=== PATIENT | male | born 1965 | race Caucasian/White ===

== ENCOUNTER 2022-09-05 11:43 | Inpatient (IN) | payer MEDICARE, MEDICAID, SELFPAY ==
[2022-09-05 11:51] VITALS: BP 145/106; PULSE 94; RESP 16; TEMP 36.9; O2SAT 97
--- NOTE | 2022-09-05 12:21 | PC.NURSE ---
PT STATES HE FEELS LIKE THERE IS SPY WEAR IN HIS HEAD AND THE VOICES ARE TELLING HIM TO LEAVE AND NEVER COME BACK
--- NOTE | 2022-09-05 12:33 | W.ED.PSYCHS ---
HPI - Psych General: Chief Complaint: Psychiatric Symptoms Stated Complaint: PSYCH EVAL Time Seen by Provider: 09/05/22 11:53 Source: patient History of Present Illness: 57-year-old male presents emergency room complaining of auditory visual hallucinations states he has been doing methamphetamine regularly for the last 3 weeks. He is having hallucinations and paranoid delusions that someone is installed spy where throughout his house he states he can hear the people on the floor talking and still hear voices. He has been going on for consistently for a week yesterday said he wanted to kill himself but now he states he does not have any suicidal homicidal thoughts he is not currently on any medications he was released from [facility] approximately 4 weeks ago states he began doing methamphetamine a week or 2 after he got out. No recent illness no fever sweats chills no flulike symptoms no known diagnosis of COVID. Patient states in the past he has been admitted to the neuropsychiatric unit. MD complaint: suicidal ideation and other (Auditory and visual loose Nations paranoid delusions) Onset (ago): week(s) Duration: constant Relieving factors: none Exacerbating factors: none Context: recent drug abuse Associated psychiatric symptoms: suicidal ideation, auditory hallucinations, visual hallucinations and delusions Associated symptoms: Reports auditory hallucinations, visual hallucinations, delusions, suicidal ideation and racing thoughts Review of Systems Const: Denies: fever(s), chills, body aches, change in appetite, fatigue or malaise ENMT: Denies: throat pain, ear or mastoid pain, nasal discharge or nasal congestion Card: Denies: chest pain, edema, dyspnea on exertion or orthopnea Resp: Denies: dyspnea, productive cough or non-productive cough GI: Denies: abdominal pain, nausea, vomiting, hematemesis, coffee ground emesis, diarrhea, constipation, bloating, hematochezia or melena : Denies: flank pain, dysuria, urinary frequency or urinary urgency Skin/Breast: Denies: rash or pruritus Psych: Reports: visual hallucinations, auditory hallucinations and suicidal ideation [facility] PFSH: Social History (Updated 09/05/22 @ 17:16 by Bijan Mae DO) Smoking and tobacco status: current every day smoker Substance/Drug Use: current Substance/Drug use type: Methamphetamine Physical Exam Const: ORIENTATION/CONSCIOUSNESS: Yes awake HENMT: COMMON NORMALS: normocephalic, atraumatic and hearing grossly normal bilaterally HEAD & SCALP: normocephalic and atraumatic Resp: COMMON NORMALS: normal respiratory effort, No retractions, No use of accessory muscles and clear to auscultation bilaterally AUSCULTATION: clear to auscultation bilaterally Cardio: COMMON NORMALS: regular rate, regular rhythm and No murmurs present (Cardio) RATE: regular rate RHYTHM: regular rhythm GI: COMMON NORMALS: Soft to palpation and No hepatosplenomegaly present AUSCULTATION: Yes normoactive bowel sounds PALPATION: Yes Soft to palpation, No Tenderness to palpation present (GI), No Guarding due to palpation present (GI) and Yes No hepatosplenomegaly present Extremity: COMMON NORMALS: normal to inspection, capillary refill normal, no clubbing, cyanosis or edema, no calf tenderness and no pedal edema Psych: MOOD & AFFECT: Yes anxious and Yes irritable THOUGHT PROCESS: disorganized and Flight of ideas present THOUGHT CONTENT: Yes Suicidality present and Yes delusions Skin: COMMON NORMALS: no rashes or lesions noted GENERAL SKIN EXAM: no rashes or lesions noted Course Vital Signs: Vital signs: Vital Signs Temperature 97.9 F 09/05/22 14:58 Pulse Rate 86 09/05/22 14:58 Respiratory Rate 18 09/05/22 14:58 Blood Pressure 136/91 09/05/22 14:58 Pulse Oximetry 99 09/05/22 14:58 Oxygen Delivery Me thod 09/05/22 14:54 [facility] - Psych Medical Decision Making Cussed Dr. Ayala or on-call psychiatry will admit for acute drug-induced psychosis paranoid delusions. Lab Data I reviewed the patient's lab results. 09/05/22 13:33 09/05/22 13:33 Laboratory Results WBC 10.1 10^3/uL (4.0-10.0) H 09/05/22 13:33 RBC 5.05 10^6/uL (4.1-5.3) 09/05/22 13:33 Hgb 15.0 g/dL (11.7-16.6) 09/05/22 13:33 Hct 45.2 % (42.0-52.0) 09/05/22 13:33 MCV 89.5 fl (80-94) 09/05/22 13:33 MCH 29.7 pg (28.0-34.0) 09/05/22 13:33 MCHC 33.2 g/dL (30.0-36.0) 09/05/22 13:33 RDW 12.7 % (12.1-15.1) 09/05/22 13:33 Plt Count 284 10^3/cmm (130-400) 09/05/22 13:33 MPV 10.3 fL (7.4-10.4) 09/05/22 13:33 Neut % (Auto) 76.1 % 09/05/22 13:33 Lymph % (Auto) 13.8 % 09/05/22 13:33 [place] % (Auto) 7.8 % 09/05/22 13:33 Eos % (Auto) 0.5 % 09/05/22 13:33 Baso % (Auto) 1.4 % 09/05/22 13:33 Neut # (Auto) 7.70 10^3/uL (1.8-7.7) 09/05/22 13:33 Lymph # (Auto) 1.4 10^3/uL (0.8-4.8) 09/05/22 13:33 [place] # (Auto) 0.8 10^3/uL (0.2-0.9) 09/05/22 13:33 Eos # (Auto) 0.1 10^3/uL (0.0-0.8) 09/05/22 13:33 Baso # (Auto) 0.1 10^3/uL (0.0-0.1) 09/05/22 13:33 Nucleated RBC % (auto) 0 % 09/05/22 13:33 Nucleated RBCs # 0.0 /100WBC 09/05/22 13:33 Sodium 133 mmol/L (136-145) L 09/05/22 13:33 Potassium 4.1 mmol/L (3.5-5.1) 09/05/22 13:33 Chloride 99 mmol/L (98-107) 09/05/22 13:33 Carbon Dioxide 26 mmol/L (22-29) 09/05/22 13:33 Anion Gap 12.1 (5-19) 09/05/22 13:33 BUN 9 mg/dL (6-20) 09/05/22 13:33 Creatinine 0.7 mg/dL (0.7-1.2) 09/05/22 13:33 GFR Calculation 116.7 mL/min (90-130) 09/05/22 13:33 Glucose 93 mg/dL (65-115) 09/05/22 13:33 Calculated Osmolality 274 mOsm/kg (285-295) L 09/05/22 13:33 Calcium 9.0 mg/dL (8.5-10.5) 09/05/22 13:33 Total Bilirubin 0.8 mg/dL (0.15-1.2) 09/05/22 13:33 AST 22 U/L (0-40) 09/05/22 13:33 ALT 20 U/L (0-41) 09/05/22 13:33 Alkaline Phosphatase 72 U/L (40-130) 09/05/22 13:33 Total Protein 7.2 g/dL (6.6-8.7) 09/05/22 13:33 Albumin 4.4 g/dL (3.5-5.2) 09/05/22 13:33 Globulin 2.8 g/dL (1.3-4.6) 09/05/22 13:33 Salicylates < 0.3 mg/dL (3-10) L 09/05/22 13:33 Urine Opiates Screen Negative ng/mL (Negative) 09/05/22 12:58 Acetaminophen < 5.0 ug/mL (10-30) L 09/05/22 13:33 Ur Barbiturates Screen Negative ng/mL (Negative) 09/05/22 12:58 Ur Phencyclidine Scrn Negative ng/mL (Negative) 09/05/22 12:58 Ur Amphetamines Screen Positive ng/mL (Negative) H 09/05/22 12:58 U Benzodiazepines Scrn Negative ng/mL (Negative) 09/05/22 12:58 Urine Cocaine Screen Negative ng/mL (Negative) 09/05/22 12:58 U Marijuana (THC) Screen Negative ng/mL (Negative) 09/05/22 12:58 Discharge Plan Discharge Patient Disposition: Admitted As Inpatient Admit Provider: Hammad Woods Clinical Impression: Acute psychosis, Drug-induced psychotic disorder, Suicidal ideation Condition: Stable Coding Level of Care Code ED Farmworkers for Chg Fwd Exam Problem Focused
[2022-09-05 13:50] LABS: Basophils # 0.1 10^3/uL (0.0-0.1); Basophils % 1.4 %; Eosinophils # 0.1 10^3/uL (0.0-0.8); Eosinophils % 0.5 %; Hematocrit 45.2 % (42.0-52.0); Lymphocytes # 1.4 10^3/uL (0.8-4.8); Lymphocytes % 13.8 %; Mean Corpuscular HGB Conc 33.2 g/dL (30.0-36.0); Mean Corpuscular Hemoglobin 29.7 pg (28.0-34.0); Mean Corpuscular Volume 89.5 fl (80-94); Mean Platelet Volume 10.3 fL (7.4-10.4); Monocytes # 0.8 10^3/uL (0.2-0.9); Monocytes % 7.8 %; Neutrophils % 76.1 %; Nucleated Red Blood Cells % 0 %; Platelet Count 284 10^3/cmm (130-400); Red Blood Count 5.05 10^6/uL (4.1-5.3); Red Cell Distribution Width 12.7 % (12.1-15.1); White Blood Count 10.1 10^3/uL (4.0-10.0)
[2022-09-05 13:55] VITALS: BP 148/90; PULSE 89; RESP 17; O2SAT 99
[2022-09-05 14:07] LABS: Alanine Aminotransferase 20 U/L (0-41); Albumin Level 4.4 g/dL (3.5-5.2); Alkaline Phosphatase 72 U/L (40-130); Anion Gap 12.1 (5-19); Aspartate Amino Transferase 22 U/L (0-40); Blood Urea Nitrogen 9 mg/dL (6-20); Carbon Dioxide 26 mmol/L (22-29); Chloride 99 mmol/L (98-107); Globulin 2.8 g/dL (1.3-4.6); Glomerular Filtration Rate 116.7 mL/min (90-130); Glucose 93 mg/dL (65-115); Osmolality Calculated 274 mOsm/kg (285-295); Potassium 4.1 mmol/L (3.5-5.1); Sodium 133 mmol/L (136-145); Total Bilirubin 0.8 mg/dL (0.15-1.2); Total Protein 7.2 g/dL (6.6-8.7)
[2022-09-05 14:21] LABS: Acetaminophen < 5.0 ug/mL (10-30); Salicylate < 0.3 mg/dL (3-10)
[2022-09-05 14:34] LABS: Cocaine Screen Urine Negative (Negative); PCP Screen Urine Negative (Negative); THC Screen Urine Negative (Negative)
[2022-09-05 14:35] LABS: Amphetamines Screen Urine Positive (Negative); Barbiturates Screen Urine Negative (Negative); Benzodiazepines Screen Urine Negative (Negative); Opiate Screen Urine Negative (Negative)
[2022-09-05 14:58] VITALS: BP 136/91; PULSE 86; RESP 18; TEMP 36.6; O2SAT 99
[2022-09-05 20:08] VITALS: RESP 16
--- NOTE | 2022-09-06 11:29 | PC.NURSE ---
Pt up and about this morning trying to use the telephone to contact his mom. He voiced his concern that she was in danger due to issues at home. Asked staff to call the police deptartment for a wellness check. This was done and pt was informed no one answered them. Pt then made attempts to contact the hospice care company caring for his mom. The facility received a call back from them saying the pt's mother was in respite care so she was safe, but the mom did not want to speak with Otilio at this time. The pt was informed of this and he said that made him feel so much better. He thanked staff for their efforts.
--- NOTE | 2022-09-06 13:29 | W.PM.NPUH&PS ---
Providers/Chief Complaint Admitting Physician: Hammad Woods MD Chief Complaint: PSYCH EVAL HPI NPU History of Present Illness Otilio Carpio is a 57 year old male who was admitted to the neuropsychiatric unit after presenting to the emergency room complaining of seeing and hearing things in his living situation at the [facility]. He reports that he had used methamphetamine approximately 3 days ago. He reports that he has been hearing voices in the ducts of the air vents stating that I am going to kill you . He reports that he has never had any experience like this and states that there have been cameras placed in his mothers room and there that has been observing what she has been doing and has been gathering secret and personal information on the patient as well. He denies any suicidal ideation and stated that he simply needed to get out of the situation. He states he has been in this [facility] facility with his mother for the past 45 days. Prior to that mother had been there for at least a year. He has reported a history of alcohol use but also reports a history of stimulant abuse reporting recent methamphetamine abuse for several years and states most recent use 3 days ago with alcohol as well. He denies any current depression but reports being anxious and frustrated as he reports that the nursing facility at the [facility] needs to be examined for their fraud and there invasion of privacy. The patient reports that he had been in halfway for 3 years prior to being released and he is on parole. Inpatient psychiatric history: He had reported previous inpatient treatments in [place] for depression in the past although he did not elaborate. Outpatient psychiatric history: He reports none currently. Drug and alcohol history: He had reported a history of polysubstance abuse including cocaine alcohol and currently methamphetamine. Current medications: None Allergies: Penicillin Medical history: None Surgical history: None Legal history: He reports multiple halfway stints, most recently 6 weeks ago. Social history: The patient reports that he had been residing in an assisted living facility with his elderly mother age 81 who has multiple medical problems. He reports having just been released from halfway. He reports having several children and states that he had been previously 1 time but is . He states he was born in [place] and had earned a degree in engineering having graduated from [email or web address]. He reports a history of legal problems involved in producing and delivering illicit substances. Family psychiatric history: None reported Meds NPU Home Medications Medication Instructions Recorded Confirmed Last Taken Type No Known Home Medications 12/31/22 12/31/22 Unknown History Allergies Allergy/AdvReac Type Severity Reaction Status Date / Time Penicillins Allergy Unknown Unknown Verified 09/05/22 13:53 PFSH NPU PFSH: Social History (Updated 09/05/22 @ 17:16 by Bijan Mae DO) Smoking and tobacco status: current every day smoker Substance/Drug Use: current Substance/Drug use type: Methamphetamine Mental Status Exam MSE Comments: The patient is a casually dressed thin white male who was notably intense and agitated during the interview. His speech was normal in regards to rate rhythm and prosody. The patient was alert and oriented to person place time and situation. He described his mood as anxious. His affect was intense and mood-congruent. He was somewhat guarded on interview. He did not actively appear to be responding to internal stimuli. He had clear evidence of bizarre delusions regarding people bugging him at his living situation. His insight was poor. His judgment is impaired. His impulse control appeared poor as well. His recent and remote memory appeared grossly intact. His attention span appeared adequate. Vitals/I&O/Wt Last Vital Signs Temp 97.9 F 09/05/22 14:58 Pulse 86 09/05/22 14:58 Resp 16 09/05/22 20:08 BP 136/91 09/05/22 14:58 Pulse Ox 99 09/05/22 14:58 O2 Del Method 09/05/22 14:54 Data NPU 09/05/22 13:33 09/05/22 13:33 A&P Assessment and plan (1) Acute psychosis: (2) Drug-induced psychotic disorder: Plan Is a 57-year-old white male with history of polysubstance abuse with recent use of methamphetamine admitted with active psychotic symptoms including auditory and visual hallucinations along with paranoid delusions. #1. Patient was agreeable to a trial of Abilify to target anxiety and agitation. #2. Continue every 15 minute check for safety. #3. Encourage individual group and milieu therapy. #4. recommend sober living treatment at the highest level of care to which the patient is willing to commit. Involuntary Hold Information 96 Hour Hold: 96 Hour Involuntary Admission: No Attestations NPU Medical Necessity Statement*: Inpatient hospitalization is medically necessary and the clinically appropriate intervention at this time. We will monitor medications and make changes as indicated. The patient will be in the hospital for over 2 midnights. The patient's likely length of stay is 5 to 7 days. Coding Level of Care Code New Pt Acute Jewel Oliving Machine Operator for Harshadg Fwd Patient Type New History Problem Focused Exam Problem Focused Medical Decision Making Straight Forward Diagnoses Acute psychosis F23 Drug-induced psychotic disorder F19.959
[2022-09-06 14:00] VITALS: BP 128/84; PULSE 90; RESP 18; TEMP 36.6; O2SAT 95
[2022-09-06] MEDS: ARIPiprazole 10 mg Tablet 5 MG PO (15:46)
[2022-09-06 21:06] VITALS: BP 119/77; PULSE 81; RESP 18; TEMP 36.6; O2SAT 97
[2022-09-07] MEDS: ARIPiprazole 10 mg Tablet 5 MG PO (09:02)
[2022-09-07 14:00] VITALS: BP 126/87; PULSE 87; RESP 17; TEMP 36.6; O2SAT 97
--- NOTE | 2022-09-07 17:36 | W.PM.NPUPNS ---
Subjective NPU Subjective: Patient presented today reporting that he is doing okay. He is a fairly limited historian seemingly resistant to the interview in general. We discussed the Abilify that had been initiated and reported thinking that it possibly was causing a little lethargy. We discussed increasing the dose as well as considering moving it to bedtime if he continues to have any challenges. He seemed quite a bit about discussing his addiction and the role it played in his paranoia seeming to believe that 2 issues are independent. Mental Status Exam MSE Comments: The patient is a thin call white male in hospital scrubs with limited grooming and eye contact. No abnormal movements except for mild psychomotor agitation. Semicooperative exam in mild distress. His speech was normal in regards to rate but decreased volume and prosody. Mood described as okay, affect flat and subdued. Thought process was linear. Thought content: Patient denied suicidal or homicidal ideation, there are no delusions reported but he reported paranoia and being guarded but he felt the issues initiating his paranoia were real, he denied auditory or visual hallucinations but some of his reports might fall under those labels. He did not actively appear to be responding to internal stimuli. He had clear evidence of bizarre delusions regarding people bugging him at his living situation. Attention and concentration were fair and memory was unreliable due to his psychosis but none were formally tested. His insight was poor. His judgment is impaired. His impulse control appeared poor as well. Vitals/I&O/Wt Last Vital Signs Temp 97.8 F 09/07/22 14:00 Pulse 87 09/07/22 14:00 Resp 17 09/07/22 14:00 BP 126/87 09/07/22 14:00 Pulse Ox 97 09/07/22 14:00 O2 Del Method 09/05/22 14:54 Data NPU 09/05/22 13:33 09/05/22 13:33 A&P Assessment and plan (1) Acute psychosis: (2) Drug-induced psychotic disorder: Plan Is a 57-year-old white male with history of polysubstance abuse with recent use of methamphetamine admitted with active psychotic symptoms including auditory and visual hallucinations along with paranoid delusions. 1. Patient was agreeable to a trial of Abilify to target anxiety and agitation. Continue Abilify, but increase it to 10 mg p.o. every morning with a plan to move to nightly if he is impacted by lethargy/tiredness. 2. Continue every 15 minute check for safety. 3. Encourage individual group and milieu therapy. 4. recommend sober living treatment at the highest level of care to which the patient is willing to commit. Involuntary Hold Information 96 Hour Hold: 96 Hour Involuntary Admission: No Attestations NPU Medical Necessity Statement*: Inpatient hospitalization is medically necessary and the clinically appropriate intervention at this time. We will monitor medications and make changes as indicated. The patient's likely length of stay is 4-6 days. Coding Level of Care Code Acute Wet Process Miller Head Assistant for Humaira Fwd Diagnoses Acute psychosis F23 Drug-induced psychotic disorder F19.954
[2022-09-07 22:00] VITALS: RESP 17
[2022-09-08 06:00] VITALS: RESP 18
[2022-09-08] MEDS: ARIPiprazole 10 mg Tablet PO (09:09)
[2022-09-08 14:00] VITALS: BP 138/91; PULSE 87; RESP 18; TEMP 36.8; O2SAT 97
--- NOTE | 2022-09-08 14:50 | P.NPUPN_ITS ---
Subjective NPU Subjective: Patient attended today reporting that things were better and he appeared less preoccupied. No overt conversations about things being bugged about or people listening in on him. He reports he tolerated the increase in the medication. And was pleased with the outcome. He was less focused about the medication made sleepy but more focused on the fact that he is feeling clear and less anxious. We once again talked about addiction and issues surrounding it including the likely precipitation of this thought disorder. We agreed to work with the treatment team on resources and discharge planning. Mental Status Exam MSE Comments: The patient is a thin call white male in hospital scrubs with limited grooming and improving eye contact. No abnormal movements except for mild psychomotor retardation. More cooperative exam in mild distress. His speech was normal in regards to rate but decreased volume and prosody. Mood described as better, affect flat and mildly subdued. Thought process was linear/organized. Thought content: Patient denied suicidal or homicidal ideation, there are no delusions reported and he reported less paranoia, he denied auditory or visual hallucinations. He did not actively appear to be responding to internal stimuli. Attention and concentration were fair and memory was improving, but none were formally tested. His insight, judgment and impulse control were improving. Vitals/I&O/Wt Last Vital Signs Temp 98.2 F 09/08/22 14:00 Pulse 87 09/08/22 14:00 Resp 18 09/08/22 14:00 BP 138/91 09/08/22 14:00 Pulse Ox 97 09/08/22 14:00 O2 Del Method 09/05/22 14:54 Data NPU 09/05/22 13:33 09/05/22 13:33 A&P Assessment and plan (1) Acute psychosis: (2) Drug-induced psychotic disorder: Plan Is a 57-year-old white male with history of polysubstance abuse with recent use of methamphetamine admitted with active psychotic symptoms including auditory and visual hallucinations along with paranoid delusions. 1. Continue current medication. Abilify was increased it to 10 mg p.o. every morning with a plan to move to nightly if he is impacted by lethargy/tiredness. 2. Continue every 15 minute check for safety. 3. Encourage individual group and milieu therapy. 4. recommend sober living treatment at the highest level of care to which the patient is willing to commit. Involuntary Hold Information 96 Hour Hold: 96 Hour Involuntary Admission: No Attestations NPU Medical Necessity Statement*: Inpatient hospitalization is medically necessary and the clinically appropriate intervention at this time. We will monitor medications and make changes as indicated. The patient's likely length of stay is 1-3 days. Coding Level of Care Code Acute Household Appliance Repairer for Humaira Gomez Diagnoses Acute psychosis F23 Drug-induced psychotic disorder F19.959
[2022-09-08 22:00] VITALS: RESP 16
[2022-09-09 06:00] VITALS: RESP 18
[2022-09-09] MEDS: ARIPiprazole 10 mg Tablet PO (10:53)
[2022-09-09 14:00] VITALS: BP 135/85; PULSE 85; RESP 20; TEMP 36.4; O2SAT 97
--- NOTE | 2022-09-09 17:04 | P.NPUPN_ITS ---
Subjective NPU Subjective: Patient presented today reporting being excited about being placed in the program in [place]. His p.o. is also pleased with the placement. We discussed him continuing to seem better from a standpoint of his paranoia and delusions which he agreed. He reports the medication has been helpful. He wanted to leave today if possible. He needs to get his items from home and lives in [facility] and [place]. We discussed him working with the social work team to figure out the logistics of getting his stuff and getting to [place]. Mental Status Exam MSE Comments: The patient is a thin call white male in hospital scrubs with limited grooming and improving eye contact. No abnormal movements except for mild psychomotor retardation. More cooperative exam in mild distress. His speech was normal in regards to rate but decreased volume and prosody. Mood described as okay, affect flat, mildly subdued and irritable likely secondary to not leaving today.. Thought process was linear/organized. Thought content: Patient denied suicidal or homicidal ideation, there are no delusions reported and he reported less paranoia, he denied auditory or visual hallucinations. He did not actively appear to be responding to internal stimuli. Attention and concentration were fair and memory was improving, but none were formally tested. His insight, judgment and impulse control were improving. Vitals/I&O/Wt Last Vital Signs Temp 97.5 F L 09/09/22 14:00 Pulse 85 09/09/22 14:00 Resp 20 H 09/09/22 14:00 BP 135/85 09/09/22 14:00 Pulse Ox 97 09/09/22 14:00 O2 Del Method 09/05/22 14:54 Data NPU 09/05/22 13:33 09/05/22 13:33 A&P Assessment and plan (1) Acute psychosis: (2) Drug-induced psychotic disorder: Plan Is a 57-year-old white male with history of polysubstance abuse with recent use of methamphetamine admitted with active psychotic symptoms including auditory and visual hallucinations along with paranoid delusions. 1. Continue current medication. Abilify was increased it to 10 mg p.o. every morning with a plan to move to nightly if he is impacted by lethargy/tiredness. 2. Continue every 15 minute check for safety. 3. Encourage individual group and milieu therapy. 4. recommend sober living treatment at the highest level of care to which the patient is willing to commit. Has found a program and we will arrange or assist with arrangement of transportation in the next 48 hours. Involuntary Hold Information 96 Hour Hold: 96 Hour Involuntary Admission: No Attestations NPU Medical Necessity Statement*: Inpatient hospitalization is medically necessary and the clinically appropriate intervention at this time. We will monitor medications and make changes as indicated. The patient's likely length of stay is 1-2 days. Coding Level of Care Code Acute Automation Control Integrator for Humaira Gomez Diagnoses Acute psychosis F23 Drug-induced psychotic disorder F19.959
[2022-09-09 22:00] VITALS: BP 144/89; PULSE 85; RESP 16; TEMP 36.4; O2SAT 98
[2022-09-09 22:04] VITALS: BP 144/89; PULSE 85; RESP 16; TEMP 36.4; O2SAT 98
--- NOTE | 2022-09-10 09:22 | PC.NURSE ---
Patient refusing medication this morning. He states he is leaving today and doesn't want to be tired when he leaves, but will gladly pickling machine operator his medication and take it when he leaves. Reiterated to the patient the importance of medication compliance, but patient continued to refuse.
--- NOTE | 2022-09-10 11:44 | W.PM.NPUDCS ---
Diagnoses at Discharge Discharge Diagnosis (1) Acute psychosis: Status: Acute (2) Drug-induced psychotic disorder: Status: Acute Reason for Visit Reason for Visit: PSYCH EVAL Brief History: Otilio Carpio is a 57 year old male who was admitted to the neuropsychiatric unit after presenting to the emergency room complaining of seeing and hearing things in his living situation at the [facility]. He reports that he had used methamphetamine approximately 3 days ago. He reports that he has been hearing voices in the ducts of the air vents stating that I am going to kill you . He reports that he has never had any experience like this and states that there have been cameras placed in his mothers room and there that has been observing what she has been doing and has been gathering secret and personal information on the patient as well. He denies any suicidal ideation and stated that he simply needed to get out of the situation. He states he has been in this [facility] facility with his mother for the past 45 days. Prior to that mother had been there for at least a year. He has reported a history of alcohol use but also reports a history of stimulant abuse reporting recent methamphetamine abuse for several years and states most recent use 3 days ago with alcohol as well. He denies any current depression but reports being anxious and frustrated as he reports that the nursing facility at the [facility] needs to be examined for their fraud and there invasion of privacy. The patient reports that he had been in [facility] for [facility] years prior to being released and he is on parole. Inpatient psychiatric history: He had reported previous inpatient treatments in [place] for depression in the past although he did not elaborate. Outpatient psychiatric history: He reports none currently. Drug and alcohol history: He had reported a history of polysubstance abuse including cocaine alcohol and currently methamphetamine. Current medications: None Allergies: Penicillin Medical history: None Surgical history: None Legal history: He reports multiple [facility] stints, most recently 6 weeks ago. Social history: The patient reports that he had been residing in an assisted living facility with his elderly mother age 81 who has multiple medical problems. He reports having just been released from [facility]. He reports having several children and states that he had been previously 1 time but is . He states he was born in [place] and had earned a degree in engineering having graduated from [employer]. He reports a history of legal problems involved in producing and delivering illicit substances. Family psychiatric history: None reported Hospital Course Hospital Course Patient slowly acclimated to the individual, group and milieu therapies provided.? He presented with significant psychosis and eventually was open to a trial of medication. Abilify was started and titrated to 10 mg p.o. daily with significant improvement. He worked with the treatment team to find a reasonable discharge logistics. They were able to do that. He was able to contract for safety, outside of the hospital prior to discharge.?? During the hospitalization, patient had routine laboratory studies which were within normal limits except for few outliers.? Additionally there was a general medical evaluation which was also within normal limits and revealed no new acute processes. Discharge Summary: At the time of discharge, lethality was denied and psychosis was resolving.? Mood and anxiety were well managed.? Patient endorsed a plan to avoid all drugs of abuse and follow-up with the aftercare recommendations of the treatment team.? Patient was evaluated and deemed to be absent credible lethality, and had achieved the maximum benefit from an inpatient hospitalization, so was discharged. Involuntary Hold Information 96 Hour Hold: 96 Hour Involuntary Admission: No Mental Status Exam MSE Comments: The patient is a thin call white male in hospital scrubs with improved grooming and eye contact. No abnormal movements except for mild psychomotor retardation. More cooperative exam in no acute distress. His speech was normal rate and volume with broadening prosody. Mood described as good, affect flat, but brighter. Thought process was linear/organized. Thought content: Patient denied suicidal or homicidal ideation, there are no delusions reported and he reported less paranoia, he denied auditory or visual hallucinations. He did not actively appear to be responding to internal stimuli. Attention and concentration were fair and memory was improving, but none were formally tested. His insight, judgment and impulse control were improving. Discharge Data Studies Completed and Pending: Laboratory Results WBC 10.1 10^3/uL (4.0 -10.0) H 09/05/22 13:33 RBC 5.05 10^6/uL (4.1 -5.3) 09/05/22 13:33 Hgb 15.0 g/dL (11.7-1 6.6) 09/05/22 13:33 Hct 45.2 % (42.0-52.0 ) 09/05/22 13:33 MCV 89.5 fl (80-94) 09/05/22 13:33 MCH 29.7 pg (28.0-34. 0) 09/05/22 13:33 MCHC 33.2 g/dL (30.0-3 6.0) 09/05/22 13:33 RDW 12.7 % (12.1-15.1 ) 09/05/22 13:33 Plt Count 284 10^3/cmm (130 -400) 09/05/22 13:33 MPV 10.3 fL (7.4-10.4 ) 09/05/22 13:33 Neut % (Auto) 76.1 % 09/05/22 13:33 Lymph % (Auto) 13.8 % 09/05/22 13:33 [place]lands % (Auto) 7.8 % 09/05/22 13:33 Eos % (Auto) 0.5 % 09/05/22 13:33 Baso % (Auto) 1.4 % 09/05/22 13:33 Neut # (Auto) 7.70 10^3/uL (1.8 -7.7) 09/05/22 13:33 Lymph # (Auto) 1.4 10^3/uL (0.8- 4.8) 09/05/22 13:33 Highlands # (Auto) 0.8 10^3/uL (0.2- 0.9) 09/05/22 13:33 Eos # (Auto) 0.1 10^3/uL (0.0- 0.8) 09/05/22 13:33 Baso # (Auto) 0.1 10^3/uL (0.0- 0.1) 09/05/22 13:33 Nucleated RBC % (a uto) 0 % 09/05/22 13:33 Nucleated RBCs # 0.0 /100WBC 09/05/22 13:33 Sodium 133 mmol/L (136-1 45) L 09/05/22 13:33 Potassium 4.1 mmol/L (3.5-5 .1) 09/05/22 13:33 Chloride 99 mmol/L (98-107 ) 09/05/22 13:33 Carbon Dioxide 26 mmol/L (22-29) 09/05/22 13:33 Anion Gap 12.1 (5-19) 09/05/22 13:33 BUN 9 mg/dL (6-20) 09/05/22 13:33 Creatinine 0.7 mg/dL (0.7-1. 2) 09/05/22 13:33 GFR Calculation 116.7 mL/min (90- 130) 09/05/22 13:33 Glucose 93 mg/dL (65-115) 09/05/22 13:33 Calculated Osmolal ity 274 mOsm/kg (285- 295) L 09/05/22 13:33 Calcium 9.0 mg/dL (8.5-10 .5) 09/05/22 13:33 Total Bilirubin 0.8 mg/dL (0.15-1 .2) 09/05/22 13:33 AST 22 U/L (0-40) 09/05/22 13:33 ALT 20 U/L (0-41) 09/05/22 13:33 Alkaline Phosphata se 72 U/L (40-130) 09/05/22 13:33 Total Protein 7.2 g/dL (6.6-8.7 ) 09/05/22 13:33 Albumin 4.4 g/dL (3.5-5.2 ) 09/05/22 13:33 Globulin 2.8 g/dL (1.3-4.6 ) 09/05/22 13:33 Salicylates < 0.3 mg/dL (3-10 ) L 09/05/22 13:33 Urine Opiates Scre en Negative ng/mL (N egative) 09/05/22 12:58 Acetaminophen < 5.0 ug/mL (10-3 0) L 09/05/22 13:33 Ur Barbiturates Sc reen Negative ng/mL (N egative) 09/05/22 12:58 Ur Phencyclidine S crn Negative ng/mL (N egative) 09/05/22 12:58 Ur Amphetamines Sc reen Positive ng/mL (N egative) H 09/05/22 12:58 U Benzodiazepines Scrn Negative ng/mL (N egative) 09/05/22 12:58 Urine Cocaine Scre en Negative ng/mL (N egative) 09/05/22 12:58 U Marijuana (THC) Screen Negative ng/mL (N egative) 09/05/22 12:58 Vitals: Last Vital Signs Temp 97.6 F 09/09/22 22:04 Pulse 85 09/09/22 22:04 Resp 16 09/09/22 22:04 BP 144/89 09/09/22 22:04 Pulse Ox 98 09/09/22 22:04 O2 Del Method 09/05/22 14:54 Discharge Plan Discharge Patient Disposition: Home Condition: Stable Prescriptions: New aripiprazole 10 mg Tablet 10 mg PO DAILY 30 Days Qty: 30 1RF Discharge Orders: Discharge Order (Routine); Ordered 09/10/22 Ordered By: Lobo Mcgee Referrals: [employer] [facility] [Other] [facility] [Other] [facility] [Other] (Application provided) Discharge Diet: Regular Discharge Activity: Resume usual activity Patient Instructions: Aripiprazole (By mouth), Suicide Prevention (DC), Opioid Safety Discharge Attestations NPU Time Spent in Discharge Care*: less than 30 min Specific Discharge Activities: Specific discharge activities: educating patient, discussing with patient case manager/social workers/dc planners, documenting/other paperwork and evaluating patient/reviewing data Coding Level of Care Code Acute Chg FW DC note Diagnoses Acute psychosis F23 Drug-induced psychotic disorder F19.959
[2022-09-10 11:57] VITALS: BP 144/89; PULSE 85; RESP 16; TEMP 36.4; O2SAT 98
== END 2022-09-10 13:35 | disposition home or self-care (01) | DRG 897 ==
LOC: ER 13:27 → NP 14:11
PROVIDERS: Admitting Provider Psychiatry & Neurology Psychiatry; Emergency Provider Family Medicine; Visit Provider Psychiatry & Neurology Psychiatry
DX: F15.151 Other stimulant abuse with stimulant-induced psychotic disorder with hallucinations (principal); F15.150 Other stimulant abuse with stimulant-induced psychotic disorder with delusions; F17.200 Nicotine dependence, unspecified, uncomplicated; Z65.3 Problems related to other legal circumstances
CPT/HCPCS: 80053; 80306; 80307; 85025; 97165; 99285

== ENCOUNTER 2022-10-31 13:41 | Inpatient (IN) | payer MEDICARE, MEDICAID, SELFPAY ==
[2022-10-31 13:43] VITALS: BMI 26.4
--- NOTE | 2022-10-31 13:47 | W.ED.PSYCHS ---
HPI - Psych General: Chief Complaint: Psychiatric Symptoms Stated Complaint: PSYCH EVAL Time Seen by Provider: 10/31/22 13:47 Limitations: other (Psychiatric disorder) History of Present Illness: Mr Carpio is a 57-year-old gentleman presenting to the emergency department for psychiatric concerns. He reports some bit of time of having, what I suspect are, auditory and visual hallucinations and paranoia. He reports longstanding history of being spiritual and his third eye in his pineal gland being open however is very vague as far as previous psychiatric diagnoses. He reports since he moved to [place] he was initially out of penitentiary and living with his mother. He noted seeing people and hearing words in the events. He also endorses people watching him and spying on him and trying to blackmail him. He is unsure of exactly how this happens though thinks it is through perhaps cameras in the events of smoke detectors. He thinks that there are drones that are flying around him lately. He does endorse a history of tobacco use. He endorses a history of drinking denies daily alcohol use and denies history of DT/alcohol withdrawal seizure. He denies recent other substance abuse. Intensity symptoms is moderate to severe. The patient is afraid that somebody is going to check into the hospital hiding a gun up is as to blow my brains out . No other specific changes in health, exacerbating, or alleviating factors identified. Associated symptoms: Reports delusions Review of Systems General: Reports: Other (Psychiatric disorder) [facility] PFSH: Medical History (Updated 11/14/22 @ 19:24 by Kalyan Mckeon MD) No significant past medical history Surgical History (Updated 11/14/22 @ 19:24 by Kalyan Mckeon MD) No significant past surgical history Social History Smoking and tobacco status: current every day smoker Physical Exam Const: COMMON NORMALS: alert GENERAL APPEARANCE: cooperative and well developed HENMT: COMMON NORMALS: normocephalic and atraumatic HEAD & SCALP: normocephalic and atraumatic Eye: COMMON NORMALS: conjunctivae normal CONJUNCTIVA: Yes conjunctivae normal SCLERA: sclerae normal Neck/C-Spine: COMMON NORMALS: supple GENERAL: Yes trachea midline Resp: COMMON NORMALS: normal respiratory effort EFFORT & INSPECTION: Yes able to speak in complete sentences Cardio: COMMON NORMALS: regular rate and regular rhythm RATE: regular rate RHYTHM: regular rhythm GI: COMMON NORMALS: Soft to palpation PALPATION: Yes Soft to palpation and No Tenderness to palpation present (GI) PERCUSSION: normal to percussion Extremity: GENERAL: Yes normal exam except as noted and No edema Neuro: COMMON NORMALS: moves all extremities SENSORIUM/ORIENTATION: Yes alert and No Orientation impaired Psych: ATTITUDE: Yes bizarre MOOD & AFFECT: Yes fearful THOUGHT CONTENT: Yes delusions INSIGHT: Poor insight present (Psych) JUDGEMENT: Limited judgement present (Psych) Course Vital Signs: Vital signs: Vital Signs Temperature 98.5 F 11/09/22 11:32 Pulse Rate 103 H 11/09/22 11:32 Respiratory Rate 18 11/09/22 11:32 Blood Pressure 139/87 11/09/22 11:32 Pulse Oximetry 97 11/09/22 11:32 Oxygen Delivery Me thod 11/06/22 22:00 MDM - Psych Medical Decision Making 57-year-old gentleman presenting with paranoia. He is nontoxic. Labs notable for mild leukocytosis which is nonspecific and likely not clinically pertinent, no significant metabolic abnormalities to explain symptoms. Toxic ingestions positive for mildly elevated alcohol level but not significant enough to explain psychosis. Given clinical history and physical exam there is no indication for imaging at this time. P.o. Ativan for anxiolysis attempted however patient had escalating behavior and became a threat to himself and others requiring injectable medications which had desired therapeutic effect. Serial repeat exams per protocol. Based on ED evaluation at this point there is no obvious condition that would preclude the patient from inpatient management psychiatric concerns/symptoms. Discussed with psychiatry service and patient admitted to neuropsychiatric unit. Lab Data 10/31/22 15:33 10/31/22 15:33 Discharge Plan Discharge Patient Disposition: Admitted As Inpatient Admit Provider: Lobo Mcgee Clinical Impression: Acute psychosis, Auditory hallucinations, Hallucinations, visual, Delusions, Paranoia Condition: Stable Discharge Diet: Regular Discharge Activity: Resume usual activity Coding Level of Care Code ED Vice President Digital Strategist for [employer]aira Gomez
[2022-10-31 14:19] VITALS: BP 144/83; PULSE 100; O2SAT 97
--- NOTE | 2022-10-31 14:24 | PC.NURSE ---
PT refused medication, physician notified
[2022-10-31 15:45] LABS: Basophils # 0.1 10^3/uL (0.0-0.1); Eosinophils % 0.1 %; Hematocrit 44.6 % (42.0-52.0); Hemoglobin 14.4 g/dL (11.7-16.6); Lymphocytes # 1.6 10^3/uL (0.8-4.8); Lymphocytes % 11.7 %; Mean Corpuscular HGB Conc 32.3 g/dL (30.0-36.0); Mean Corpuscular Hemoglobin 29.1 pg (28.0-34.0); Mean Corpuscular Volume 90.1 fl (80-94); Mean Platelet Volume 10.6 fL (7.4-10.4); Monocytes # 1.4 10^3/uL (0.2-0.9); Monocytes % 10.4 %; Neutrophils # 10.35 10^3/uL (1.8-7.7); Neutrophils % 76.4 %; Nucleated Red Blood Cells % 0 %; Platelet Count 267 10^3/cmm (130-400); Red Blood Count 4.95 10^6/uL (4.1-5.3); Red Cell Distribution Width 13.3 % (12.1-15.1); White Blood Count 13.6 10^3/uL (4.0-10.0)
[2022-10-31 16:11] LABS: Alanine Aminotransferase 16 U/L (0-41); Alcohol Level 18 mg/dL (0-10); Alkaline Phosphatase 89 U/L (40-130); Anion Gap 16.3 (5-19); Aspartate Amino Transferase 36 U/L (0-40); Blood Urea Nitrogen 16 mg/dL (6-20); Calcium 9.4 mg/dL (8.5-10.5); Carbon Dioxide 24 mmol/L (22-29); Chloride 100 mmol/L (98-107); Globulin 2.7 g/dL (1.3-4.6); Glucose 81 mg/dL (65-115); Osmolality Calculated 284 mOsm/kg (285-295); Potassium 3.3 mmol/L (3.5-5.1); Sodium 137 mmol/L (136-145); Thyroid Stimulating Hormone 0.65 uIU/mL (0.27-4.20); Total Bilirubin 1.1 mg/dL (0.15-1.2); Total Protein 6.7 g/dL (6.6-8.7)
[2022-10-31 16:14] LABS: Acetaminophen < 5.0 ug/mL (10-30); Salicylate < 0.3 mg/dL (3-10)
[2022-10-31] MEDS: potassium chloride ER 20 mEq Tablet 40 MEQ PO (17:04)
--- NOTE | 2022-10-31 17:25 | PC.NURSE ---
Personal belongings - $366 counted by security.
[2022-10-31 17:27] VITALS: RESP 16
[2022-10-31 17:39] VITALS: BP 138/91; PULSE 90; RESP 19; TEMP 36.7; O2SAT 98
[2022-10-31] MEDS: OLANZapine 5 mg ODT PO (18:40)
--- NOTE | 2022-10-31 18:41 | PC.NURSE ---
PRN Vice President [employer] Patient approached this RN in a panicked state and said someone was standing at his window with a gun. This RN went to the patient's room with him, where the blinds were pulled. I pulled the blinds up so we could see outside and assured the patient that no one was outside his window and that we were very far off the ground in his room where nobody could reach him. Patient then began staring at an outlet in the wall and said, I know it sounds crazy but I kind of have a third sense. I can hear them talking about me and saying I can't escape. And I think they're right. Administered 10 mg zyprexa odt. Patient had also said he hadn't slept well for 3 days so he was advised to try to take a nap because he was safe here.
[2022-10-31 20:03] VITALS: BP 122/67; PULSE 96; RESP 16; TEMP 36.6; O2SAT 98
[2022-11-01 06:00] VITALS: BP 124/79; PULSE 96; RESP 16; TEMP 36.4; O2SAT 99
[2022-11-01 14:00] VITALS: BP 130/81; PULSE 100; RESP 18; TEMP 36.8; O2SAT 93
--- NOTE | 2022-11-01 14:02 | W.PM.NPUH&PS ---
Providers/Chief Complaint Admitting Physician: Lobo Mcgee MD Chief Complaint: PSYCH EVAL HPI NPU History of Present Illness Otilio Carpio is a 57 year old male who presented to the emergency department with the following report: Chief Complaint: Psychiatric Symptoms Stated Complaint: PSYCH EVAL Time Seen by Provider: 10/31/22 13:47 History of Present Illness: Mr Carpio is a 57-year-old gentleman presenting to the emergency department for psychiatric concerns. He reports some bit of time of having, what I suspect are, auditory and visual hallucinations and paranoia. He reports longstanding history of being spiritual and his third eye in his pineal gland being open however is very vague as far as previous psychiatric diagnoses. He reports since he moved to [place] he was initially out of half-way and living with his mother. He noted seeing people and hearing words in the events. He also endorses people watching him and spying on him and trying to blackmail him. He is unsure of exactly how this happens though thinks it is through perhaps cameras in the events of smoke detectors. He thinks that there are drones that are flying around him lately. He does endorse a history of tobacco use. He endorses a history of drinking denies daily alcohol use and denies history of DT/alcohol withdrawal seizure. He denies recent other substance abuse. Intensity symptoms is moderate to severe. The patient is afraid that somebody is going to check into the hospital hiding a gun up is as to blow my brains out . No other specific changes in health, exacerbating, or alleviating factors identified. He was admitted to the neuropsychiatric unit for definitive treatment of those issues. He was a very resistant historian with very few answers to questions posed to him. And most of those answers were enmeshed in a very serious likely paranoid delusional network. He just kept repeating that they are out to get me and I am not safe anywhere. Any question was perceived as a lack of belief of his report that he was being followed and these people were appearing everywhere. Additionally challenging the situation was a clear hypersomnolence likely connected to a crash from methamphetamine. He had refused thus far to give a urine sample so there was a BAL of but his UDS was not obtained as of this interview and bringing up his history of drugs led to him saying that he was not being believed in him essentially ending the interview. An excerpt of his evaluation/discharge summary from last month is included below for historical context. Per his 09/10/2022 [facility] inpatient psychiatric discharge summary: PSYCH EVAL Brief History: Otilio Carpio is a 57 year old male who was admitted to the neuropsychiatric unit after presenting to the emergency room complaining of seeing and hearing things in his living situation at the [facility]. He reports that he had used methamphetamine approximately 3 days ago. He reports that he has been hearing voices in the ducts of the air vents stating that I am going to kill you . He reports that he has never had any experience like this and states that there have been cameras placed in his mothers room and there that has been observing what she has been doing and has been gathering secret and personal information on the patient as well. He denies any suicidal ideation and stated that he simply needed to get out of the situation. He states he has been in this [facility] facility with his mother for the past 45 days. Prior to that mother had been there for at least a year. He has reported a history of alcohol use but also reports a history of stimulant abuse reporting recent methamphetamine abuse for several years and states most recent use 3 days ago with alcohol as well. He denies any current depression but reports being anxious and frustrated as he reports that the nursing facility at the [facility] needs to be examined for their fraud and there invasion of privacy. The patient reports that he had been in [facility] for 3 years prior to being released and he is on parole. Inpatient psychiatric history: He had reported previous inpatient treatments in [place] for depression in the past although he did not elaborate. Outpatient psychiatric history: He reports none currently. Drug and alcohol history: He had reported a history of polysubstance abuse including cocaine alcohol and currently methamphetamine. Current medications: None Allergies: Penicillin Medical history: None Surgical history: None Legal history: He reports multiple [facility] stints, most recently 6 weeks ago. Social history: The patient reports that he had been residing in an assisted living facility with his elderly mother age 81 who has multiple medical problems. He reports having just been released from [facility]. He reports having several children and states that he had been previously 1 time but is . He states he was born in [place] and had earned a degree in engineering having graduated from [employer]. He reports a history of legal problems involved in producing and delivering illicit substances. Family psychiatric history: None reported Hospital Course Patient slowly acclimated to the individual, group and milieu therapies provided. He presented with significant psychosis and eventually was open to a trial of medication. Abilify was started and titrated to 10 mg p.o. daily with significant improvement. He worked with the treatment team to find a reasonable discharge logistics. They were able to do that. He was able to contract for safety, outside of the hospital prior to discharge. During the hospitalization, patient had routine laboratory studies which were within normal limits except for few outliers. Additionally there was a general medical evaluation which was also within normal limits and revealed no new acute processes. Discharge Summary: At the time of discharge, lethality was denied and psychosis was resolving. Mood and anxiety were well managed. Patient endorsed a plan to avoid all drugs of abuse and follow-up with the aftercare recommendations of the treatment team. Patient was evaluated and deemed to be absent credible lethality, and had achieved the maximum benefit from an inpatient hospitalization, so was discharged. Meds NPU Home Medications Medication Instructions Recorded Confirmed Last Taken Type aripiprazole 10 mg tablet 10 mg PO DAILY 30 days #30 tabs 09/10/22 10/31/22 Unknown Rx Allergies Allergy/AdvReac Type Severity Reaction Status Date / Time Penicillins Allergy Unknown Unknown Verified 09/05/22 13:53 PFSH NPU PFSH: Social History (Updated 09/05/22 @ 17:16 by Bijan Mae DO) Smoking and tobacco status: current every day smoker Mental Status Exam MSE Comments: The patient is a thin call white male in hospital scrubs with limited grooming and eye contact. No abnormal movements except for mild psychomotor agitation. Mostly uncooperative exam in moderate distress. His speech was limited with increased rate and decreased volume. Mood described as fine, affect paranoid. Thought process was linear. Thought content: Patient denied suicidal or homicidal ideation, there are no delusions reported but he appeared to have significant paranoia but he felt the issues initiating his paranoia were real, he appeared to be responding to internal stimuli. He had clear evidence of bizarre delusions regarding people following him. Attention, concentration and memory were impaired due to his psychosis but none were formally tested. His insight was poor. His judgment is impaired. His impulse control appeared poor as well. Vitals/I&O/Wt Last Vital Signs Temp 98.2 F 02/26/23 14:00 Pulse 100 11/01/22 14:00 Resp 18 11/01/22 14:00 BP 130/81 11/01/22 14:00 Pulse Ox 93 11/01/22 14:00 O2 Del Method 10/31/22 17:47 Weight last 48 hrs Weight 88.36 kg Weight 90.718 kg Data NPU 10/31/22 15:33 10/31/22 15:33 A&P Assessment and plan (1) Acute psychosis: (2) Drug-induced psychotic disorder: (3) Auditory hallucinations: (4) Hallucinations, visual: (5) Delusions: (6) Paranoia: (7) Alcohol use disorder: Plan Is a 57-year-old white male with history of polysubstance abuse with likely recent use of methamphetamine admitted with active psychotic symptoms including auditory and visual hallucinations along with paranoid delusions. 1. Continue current medication. We will attempt to get patient to restart Abilify. 2. Continue every 15 minute check for safety. 3. Encourage individual group and milieu therapy. 4. recommend sober living treatment at the highest level of care to which the patient is willing to commit. Involuntary Hold Information 96 Hour Hold: 96 Hour Involuntary Admission: Yes 96 Hour Hold Ending Date: 11/06/22 96 Hour Hold Ending Time: 00:01 Attestations NPU Medical Necessity Statement*: Inpatient hospitalization is medically necessary and the clinically appropriate intervention at this time. We will monitor medications and make changes as indicated. The patient will be in the hospital for over 2 midnights. The patient's likely length of stay is 5 to 7 days. 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
[2022-11-01 20:07] VITALS: BP 117/72; PULSE 89; RESP 18; TEMP 36.6; O2SAT 97
[2022-11-02 06:00] VITALS: BP 157/75; PULSE 90; RESP 16; TEMP 36.9; O2SAT 96
[2022-11-02] MEDS: bisacodyl 5 mg Tablet PO (09:48)
[2022-11-02] MEDS: OLANZapine 5 mg ODT PO (09:48)
--- NOTE | 2022-11-02 09:51 | PC.NURSE ---
PRN [employer] Application Developer Patient states this morning that he hasn't slept well because he heard people all night talking and walking in the hallway. He appears very anxious and is shaking slightly. Patient administered zyprexa 10mg odt.
[2022-11-02 14:00] VITALS: BP 138/72; PULSE 90; RESP 17; TEMP 37.1; O2SAT 96
--- NOTE | 2022-11-02 16:07 | P.NPUPN_ITS ---
Subjective NPU Subjective: Patient presented today unchanged from yesterday. Any questions about what is going on lead to very impaction statements about people following him and how it is real and has nothing to do with any drug use. He still has not produced a urine for evaluation of methamphetamine use given his last visit last month. He reported still considering restarting the Abilify. Mental Status Exam MSE Comments: The patient is a thin call white male in hospital scrubs with limited grooming and eye contact. No abnormal movements except for mild psychomotor agitation. Mostly uncooperative exam in moderate distress. His speech was limited with increased rate and decreased volume. Mood described as there is nothing wrong with me, affect paranoid. Thought process was linear. Thought content: Patient denied suicidal or homicidal ideation, there are no delusions reported but he appeared to have significant paranoia but he felt the issues initiating his paranoia were real, he appeared to be responding to internal stimuli. He had clear evidence of bizarre delusions regarding people following him. Attention, concentration and memory were impaired due to his psychosis but none were formally tested. His insight was poor. His judgment is impaired. His impulse control appeared poor as well. Vitals/I&O/Wt Last Vital Signs Temp 98.4 F 11/02/22 06:00 Pulse 90 11/02/22 06:00 Resp 16 11/02/22 06:00 BP 157/75 11/02/22 06:00 Pulse Ox 96 11/02/22 06:00 O2 Del Method 10/31/22 17:47 Weight last 48 hrs Weight 88.36 kg Data NPU 10/31/22 15:33 10/31/22 15:33 A&P Assessment and plan (1) Acute psychosis: (2) Drug-induced psychotic disorder: (3) Auditory hallucinations: (4) Hallucinations, visual: (5) Delusions: (6) Paranoia: (7) Alcohol use disorder: Plan Is a 57-year-old white male with history of polysubstance abuse with likely r ecent use of methamphetamine admitted with active psychotic symptoms including auditory and visual hallucinations along with paranoid delusions. 1. Continue current medication. We will attempt to get patient to restart Abilify 10 mg p.o. daily. 2. Continue every 15 minute check for safety. 3. Encourage individual group and milieu therapy. 4. recommend sober living treatment at the highest level of care to which the patient is willing to commit. Involuntary Hold Information 96 Hour Hold: 96 Hour Involuntary Admission: Yes 96 Hour Hold Ending Date: 11/06/22 96 Hour Hold Ending Time: 00:01 Attestations NPU Medical Necessity Statement*: Inpatient hospitalization is medically necessary and the clinically appropriate intervention at this time. We will monitor medications and make changes as indicated. The patient's likely length of stay is 4 to 6 days. Coding Level of Care Code Acute Code for [facility] Fwd Diagnoses Acute psychosis F23 Drug-induced psychotic disorder F19.959 Auditory hallucinations R44.0 Hallucinations, visual R44.1 Delusions F22 Paranoia F22 Alcohol use disorder F10.90
[2022-11-02 20:14] VITALS: BP 132/83; PULSE 90; RESP 16; TEMP 36.9; O2SAT 96
[2022-11-03 06:00] VITALS: BP 158/89; PULSE 84; RESP 18; TEMP 36.9; O2SAT 94
[2022-11-03] MEDS: ARIPiprazole 10 mg Tablet PO (09:13)
--- NOTE | 2022-11-03 11:02 | P.NPUPN_ITS ---
Subjective NPU Subjective: Patient presented today reporting that he was doing better. For the first time in his hospitalization he actually said some things that were likely rational and not completely founded on paranoid delusions. He still had a clear presence of delusional thinking and still expressed paranoia in his language but was able to start talking about making a mistake of starting to drink as well as using again which led to him getting kicked out of where he was living etc. He continues to identify that the thoughts seem real but has a slight ability to consider an alternative narrative. We discussed the fact that the reason why he is thinking more clearly is very likely due to him starting the Abilify. As well as him being away from the methamphetamine. Of note he still has not given a urine drug screen. Mental Status Exam MSE Comments: The patient is a thin call white male in hospital scrubs with limited grooming and eye contact. No abnormal movements except for mild psychomotor agitation. More cooperative with exam in mild to moderate distress. His speech was more spontaneous with increased rate and more normal volume. Mood described as feeling okay and need to get out of here, affect paranoid. Thought process was linear and organized. Thought content: Patient denied suicidal or homicidal ideation, there are no delusions reported but he appeared to have significant paranoia but he felt the issues initiating his paranoia were real, he appeared to be responding to internal stimuli. He had clear evidence of bizarre delusions regarding people following him. Attention, concentration and memory were impaired due to his psychosis, but improving but none were formally tested. His insight was poor. His judgment is impaired. His impulse control appeared poor as well. Vitals/I&O/Wt Last Vital Signs Temp 98.4 F 11/03/22 06:00 Pulse 84 11/03/22 06:00 Resp 18 11/03/22 06:00 BP 158/89 11/03/22 06:00 Pulse Ox 94 11/03/22 06:00 O2 Del Method 10/31/22 17:47 Data NPU 10/31/22 15:33 10/31/22 15:33 A&P Assessment and plan (1) Acute psychosis: (2) Drug-induced psychotic disorder: (3) Auditory hallucinations: (4) Hallucinations, visual: (5) Delusions: (6) Paranoia: (7) Alcohol use disorder: Plan Is a 57-year-old white male with history of polysubstance abuse with likely recent use of methamphetamine admitted with active psychotic symptoms including auditory and visual hallucinations along with paranoid delusions. 1. Continue current medication. Restarted Abilify 10 mg p.o. daily. 2. Continue every 15 minute check for safety. 3. Encourage individual group and milieu therapy. 4. recommend sober living treatment at the highest level of care to which the patient is willing to commit. Involuntary Hold Information 96 Hour Hold: 96 Hour Involuntary Admission: Yes 96 Hour Hold Ending Date: 11/06/22 96 Hour Hold Ending Time: 00:01 Attestations NPU Medical Necessity Statement*: Inpatient hospitalization is medically necessary and the clinically appropriate intervention at this time. We will monitor medications and make changes as indicated. The patient's likely length of stay is 3-5 days. 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
[2022-11-03 14:00] VITALS: BP 155/84; PULSE 90; RESP 17; TEMP 36.7; O2SAT 91
[2022-11-03] MEDS: OLANZapine 5 mg ODT PO (18:38)
[2022-11-03 20:15] VITALS: BP 139/87; PULSE 80; RESP 16; TEMP 36.7; O2SAT 97
[2022-11-04 06:00] VITALS: BP 156/91; PULSE 87; RESP 18; TEMP 36.6; O2SAT 96
[2022-11-04] MEDS: ARIPiprazole 10 mg Tablet PO (08:44)
--- NOTE | 2022-11-04 12:13 | W.PM.NPUPNS ---
Subjective NPU Subjective: Patient presented today having some improvement in his overall presentation with decreases in [id number] paranoia but continued paranoia nonetheless. He reports that he feels maybe the Abilify is making him a little sleepy and we talked about the possibility of giving him his dose at night starting tomorrow. He continues to lobby for discharge we discussed the fact that we would need to see his paranoia decreased significantly prior to discharge. Mental Status Exam MSE Comments: The patient is a thin call white male in hospital scrubs with limited grooming and eye contact. No abnormal movements except for mild psychomotor agitation. More cooperative with exam in mild to moderate distress. His speech was more spontaneous with increased rate and more normal volume. Mood described as feeling okay and need to get out of here, affect paranoid. Thought process was linear and organized. Thought content: Patient denied suicidal or homicidal ideation, there are no delusions reported but he appeared to have significant paranoia but he felt the issues initiating his paranoia were real, he appeared to be responding to internal stimuli. He had clear evidence of bizarre delusions regarding people following him. Attention, concentration and memory were impaired due to his psychosis, but improving but none were formally tested. His insight was poor. His judgment is impaired. His impulse control appeared poor as well. Vitals/I&O/Wt Last Vital Signs Temp 97.9 F 11/04/22 06:00 Pulse 87 11/04/22 06:00 Resp 18 11/04/22 06:00 BP 156/91 11/04/22 06:00 Pulse Ox 96 11/04/22 06:00 O2 Del Method 10/31/22 17:47 Data NPU 10/31/22 15:33 10/31/22 15:33 A&P Assessment and plan (1) Acute psychosis: (2) Drug-induced psychotic disorder: (3) Auditory hallucinations: (4) Hallucinations, visual: (5) Delusions: (6) Paranoia: (7) Alcohol use disorder: Plan Is a 57-year-old white male with history of polysubstance abuse with likely recent use of methamphetamine admitted with active psychotic symptoms including auditory and visual hallucinations along with paranoid delusions. 1. Continue current medication. Restarted Abilify 10 mg p.o. daily. Switch to bedtime dosing and consider increasing to 20 mg. 2. Continue every 15 minute check for safety. 3. Encourage individual group and milieu therapy. 4. recommend sober living treatment at the highest level of care to which the patient is willing to commit. Involuntary Hold Information 96 Hour Hold: 96 Hour Involuntary Admission: Yes 96 Hour Hold Ending Date: 11/06/22 96 Hour Hold Ending Time: 00:01 Attestations NPU Medical Necessity Statement*: Inpatient hospitalization is medically necessary and the clinically appropriate intervention at this time. We will monitor medications and make changes as indicated. The patient's likely length of stay is 2-4 days. 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
[2022-11-04 14:00] VITALS: BP 153/92; PULSE 83; RESP 18; TEMP 36.7; O2SAT 96
[2022-11-04] MEDS: hyDROXYzine 25 mg Capsule 50 MG PO (19:11)
[2022-11-04 22:00] VITALS: BP 147/84; PULSE 83; RESP 15; TEMP 36.6; O2SAT 95
[2022-11-05 06:00] VITALS: BP 153/84; PULSE 84; RESP 18; TEMP 36.6; O2SAT 95
[2022-11-05 14:00] VITALS: BP 135/101; PULSE 120; RESP 18; TEMP 36.6; O2SAT 94
--- NOTE | 2022-11-05 16:28 | P.NPUPN_ITS ---
Subjective NPU Subjective: Patient presented today reporting that he is feeling better. He reported that he needs to leave the hospital today or tomorrow based on all these things I have to do. But when questioned about those things he never seemed to come up with things of dire importance so it seemed that he just wants to leave the hospital. We agreed we would talk about this issue again tomorrow. We discussed the fact that we would be likely filing for a 21-day hold just in case we need to keep him given his level of paranoia. He is denying paranoia today but still appears to have some paranoid behaviors. Mental Status Exam MSE Comments: The patient is a thin call white male in hospital scrubs with limited grooming and eye contact. No abnormal movements except for mild psychomotor agitation. More cooperative with exam in mild to moderate distress. His speech was more spontaneous with increased rate and more normal volume. Mood described as I am fine I am ready to go, affect less paranoid. Thought process was linear and organized. Thought content: Patient denied suicidal or homicidal ideation, there are no delusions reported but he appeared to have significant paranoia but he felt the issues initiating his paranoia were real, he appeared to be responding to internal stimuli. He had clear evidence of bizarre delusions regarding people following him. Attention, concentration and memory were impaired due to his psychosis, but improving but none were formally tested. His insight was poor. His judgment is impaired. His impulse control appeared poor as well. Vitals/I&O/Wt Last Vital Signs Temp 97.8 F 11/05/22 14:00 Pulse 120 H 11/05/22 14:00 Resp 18 11/05/22 14:00 BP 135/101 11/05/22 14:00 Pulse Ox 94 11/05/22 14:00 O2 Del Method 11/05/22 06:00 Data NPU 10/31/22 15:33 10/31/22 15:33 A&P Assessment and plan (1) Acute psychosis: (2) Drug-induced psychotic disorder: (3) Auditory hallucinations: (4) Hallucinations, visual: (5) Delusions: (6) Paranoia: (7) Alcohol use disorder: Plan Is a 57-year-old white male with history of polysubstance abuse with likely recent use of methamphetamine admitted with active psychotic symptoms including auditory and visual hallucinations along with paranoid delusions. 1. Continue current medication. Restarted Abilify 10 mg p.o. daily. Switch to bedtime dosing and increase to 20 mg p.o. 2. Continue every 15 minute check for safety. 3. Encourage individual group and milieu therapy. 4. recommend sober living treatment at the highest level of care to which the patient is willing to commit. 5. Filed for 21-day hold. Involuntary Hold Information 96 Hour Hold: 96 Hour Involuntary Admission: Yes 96 Hour Hold Ending Date: 11/06/22 96 Hour Hold Ending Time: 00:01 Attestations NPU Medical Necessity Statement*: Inpatient hospitalization is medically necessary and the clinically appropriate intervention at this time. We will monitor medications and make changes as indicated. The patient's likely length of stay is 2-4 days. 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
[2022-11-05] MEDS: OLANZapine 5 mg ODT PO (18:54)
[2022-11-05] MEDS: nicotine 2 mg Gum BUCCAL (20:20)
[2022-11-05] MEDS: ARIPiprazole 10 mg Tablet 20 MG PO (21:15)
[2022-11-05 22:00] VITALS: BP 152/97; PULSE 84; RESP 16; TEMP 36.4; O2SAT 97
[2022-11-06 06:00] VITALS: BP 123/83; PULSE 80; RESP 16; TEMP 36.9; O2SAT 94
--- NOTE | 2022-11-06 13:19 | W.PM.NPUPNS ---
Subjective NPU Subjective: Patient presented today initially fairly upset about the 21-day hold. We had a lengthy discussion with her and I explained to him that it is my belief that he is delusional in this thought about people out to get him. We discussed why my assessment is that way and the fact that it is certainly possible that he is released prior to his hearing at 2:45 p.m. on Wednesday afternoon. He continues to take his medication and is tolerating the increase in dose and change to bedtime. He denies any new issues other than his resolving paranoia. Mental Status Exam MSE Comments: The patient is a thin call white male in hospital scrubs with limited grooming and eye contact. No abnormal movements except for mild psychomotor agitation. More cooperative with exam in mild to moderate distress. His speech was more spontaneous with increased rate and more normal volume. Mood described as I am fine I am ready to go, affect less paranoid. Thought process was linear and organized. Thought content: Patient denied suicidal or homicidal ideation, there are no delusions reported but he continued to have notable paranoia but he felt the issues initiating his paranoia were real, he appeared to be responding to internal stimuli. He had clear evidence of bizarre delusions regarding people following him. Attention, concentration and memory were impaired due to his psychosis, but improving but none were formally tested. His insight was poor. His judgment is impaired. His impulse control appeared poor as well. Vitals/I&O/Wt Last Vital Signs Temp 98.5 F 11/06/22 06:00 Pulse 80 11/06/22 06:00 Resp 16 11/06/22 06:00 BP 123/83 11/06/22 06:00 Pulse Ox 94 11/06/22 06:00 O2 Del Method 11/06/22 06:00 Data NPU 10/31/22 15:33 10/31/22 15:33 A&P Assessment and plan (1) Acute psychosis: (2) Drug-induced psychotic disorder: (3) Auditory hallucinations: (4) Hallucinations, visual: (5) Delusions: (6) Paranoia: (7) Alcohol use disorder: Plan Is a 57-year-old white male with history of polysubstance abuse with likely recent use of methamphetamine admitted with active psychotic symptoms including auditory and visual hallucinations along with paranoid delusions. 1. Continue current medication. Restarted Abilify 10 mg p.o. daily. Switch to bedtime dosing and increased to 20 mg p.o. 2. Continue every 15 minute check for safety. 3. Encourage individual group and milieu therapy. 4. recommend sober living treatment at the highest level of care to which the patient is willing to commit. 5. Filed for 21-day hold. Involuntary Hold Information 96 Hour Hold: 96 Hour Involuntary Admission: Yes 96 Hour Hold Ending Date: 11/06/22 96 Hour Hold Ending Time: 00:01 Attestations NPU Medical Necessity Statement*: Inpatient hospitalization is medically necessary and the clinically appropriate intervention at this time. We will monitor medications and make changes as indicated. The patient's likely length of stay is 2-4 days. 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
[2022-11-06 14:00] VITALS: BP 116/76; PULSE 99; RESP 20; TEMP 36.5; O2SAT 97
[2022-11-06] MEDS: hyDROXYzine 25 mg Capsule 50 MG PO (18:08)
[2022-11-06] MEDS: nicotine 2 mg Gum BUCCAL ×2 (18:08→20:53)
[2022-11-06] MEDS: ARIPiprazole 10 mg Tablet 20 MG PO (20:53)
[2022-11-06] MEDS: OLANZapine 5 mg ODT PO (20:53)
[2022-11-06 22:00] VITALS: BP 143/80; PULSE 90; RESP 18; TEMP 36.8; O2SAT 96
[2022-11-07 06:00] VITALS: RESP 18
--- NOTE | 2022-11-07 13:45 | W.PM.NPUPNS ---
Subjective NPU Subjective: Patient presented today continuing to proceed more that his behaviors at admission represented paranoia and not real danger. He reports that he is tolerating the Abilify without issue. And reports only mild sleepiness. We continued to discuss the possibility of discharge prior to the hearing. He denied any new or significant issues. Mental Status Exam MSE Comments: The patient is a thin call white male in hospital scrubs with limited grooming and eye contact. No abnormal movements except for mild psychomotor agitation. More cooperative with exam in mild to moderate distress. His speech was more spontaneous with increased rate and more normal volume. Mood described as I am feeling better, affect less paranoid. Thought process was linear and organized. Thought content: Patient denied suicidal or homicidal ideation, there are no delusions reported but he continued to have notable paranoia but he felt the issues initiating his paranoia were real, he appeared to be responding to internal stimuli. He had clear evidence of bizarre delusions regarding people following him. Attention, concentration and memory were impaired due to his psychosis, but improving but none were formally tested. His insight was poor. His judgment is impaired. His impulse control appeared poor as well. Vitals/I&O/Wt Last Vital Signs Temp 98.2 F 11/06/22 22:00 Pulse 90 11/06/22 22:00 Resp 18 11/07/22 06:00 BP 143/80 11/06/22 22:00 Pulse Ox 96 11/06/22 22:00 O2 Del Method 11/06/22 22:00 Data NPU 10/31/22 15:33 10/31/22 15:33 A&P Assessment and plan (1) Acute psychosis: (2) Drug-induced psychotic disorder: (3) Auditory hallucinations: (4) Hallucinations, visual: (5) Delusions: (6) Paranoia: (7) Alcohol use disorder: Plan Is a 57-year-old white male with history of polysubstance abuse with likely recent use of methamphetamine admitted with active psychotic symptoms including auditory and visual hallucinations along with paranoid delusions. 1. Continue current medication. Restarted Abilify 10 mg p.o. daily. Switched to bedtime dosing and increased to 20 mg p.o. 2. Continue every 15 minute check for safety. 3. Encourage individual group and milieu therapy. 4. recommend sober living treatment at the highest level of care to which the patient is willing to commit. 5. Filed for 21-day hold. Involuntary Hold Information 96 Hour Hold: 96 Hour Involuntary Admission: Yes 96 Hour Hold Ending Date: 11/06/22 96 Hour Hold Ending Time: 00:01 Attestations NPU Medical Necessity Statement*: Inpatient hospitalization is medically necessary and the clinically appropriate intervention at this time. We will monitor medications and make changes as indicated. The patient's likely length of stay is 2-4 days. 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
[2022-11-07 14:00] VITALS: BP 142/87; PULSE 101; RESP 17; TEMP 36.6; O2SAT 94
[2022-11-07] MEDS: nicotine 2 mg Gum BUCCAL ×3 (17:03→21:06)
[2022-11-07 20:26] VITALS: BP 147/92; PULSE 106; RESP 18; TEMP 36.7; O2SAT 96
[2022-11-07] MEDS: ARIPiprazole 10 mg Tablet 20 MG PO (20:50)
[2022-11-07] MEDS: OLANZapine 5 mg ODT PO (20:51)
[2022-11-08 05:54] VITALS: BP 143/80; PULSE 79; RESP 16; TEMP 36.6; O2SAT 98
[2022-11-08] MEDS: nicotine 2 mg Gum BUCCAL ×5 (11:31→22:25)
[2022-11-08 13:40] VITALS: BP 159/99; PULSE 104; RESP 18; TEMP 36.7; O2SAT 96
--- NOTE | 2022-11-08 14:20 | P.NPUPN_ITS ---
Subjective NPU Subjective: Patient presented today continuing to have slow improvement in regards to his paranoia. He continues to take his medication as prescribed and is hopeful for possible discharge tomorrow. We discussed the fact that we will do treatment team in the morning and look at his discharge plans and her safety and his functioning to determine whether we should be going forward with a hearing. He denied any new or pressing issues. Mental Status Exam MSE Comments: The patient is a thin call white male in hospital scrubs with limited grooming and eye contact. No abnormal movements except for mild psych omotor agitation. More cooperative with exam in mild distress. His speech was more spontaneous with more normal rate and volume. Mood described as better, affect less paranoid. Thought process was linear and organized. Thought content: Patient denied suicidal or homicidal ideation, there are no delusions reported but he continued to have notable paranoia but he felt the issues initiating his paranoia were real, he appeared to be responding to internal stimuli. He had clear evidence of bizarre delusions regarding people following him. Attention, concentration and memory were impaired due to his psychosis, but improving but none were formally tested. His insight and judgment are improv ing and his impulse control appeared limited but improving. Vitals/I&O/Wt Last Vital Signs Temp 98.1 F 11/08/22 13:40 Pulse 104 H 11/08/22 13:40 Resp 18 11/08/22 13:40 BP 159/99 11/08/22 13:40 Pulse Ox 96 11/08/22 13:40 O2 Del Method 11/06/22 22:00 Weight last 48 hrs Weight 89.902 kg Data NPU 10/31/22 15:33 10/31/22 15:33 A&P Assessment and plan (1) Acute psychosis: (2) Drug-induced psychotic disorder: (3) Auditory hallucinations: (4) Hallucinations, visual: (5) Delusions: (6) Paranoia: (7) Alcohol use disorder: Plan Is a 57-year-old white male with history of polysubstance abuse with likely recent use of methamphetamine admitted with active psychotic symptoms including auditory and visual hallucinations along with paranoid delusions. 1. Continue current medication. Restarted Abilify 10 mg p.o. daily. Switched to bedtime dosing and increased to 20 mg p.o. 2. Continue every 15 minute check for safety. 3. Encourage individual group and milieu therapy. 4. recommend sober living treatment at the highest level of care to which the patient is willing to commit. 5. Filed for 21-day hold. Involuntary Hold Information 96 Hour Hold: 96 Hour Involuntary Admission: Yes 96 Hour Hold Ending Date: 11/06/22 96 Hour Hold Ending Time: 00:01 Attestations NPU Medical Necessity Statement*: Inpatient hospitalization is medically necessary and the clinically appropriate intervention at this time. We will monitor medications and make changes as indicated. The patient's likely length of stay is 1-3 days. Coding Level of Care Code Acute Code for [facility] Fwd Diagnoses Acute psychosis F23 Drug-induced psychotic disorder F19.959 Auditory hallucinations R44.0 Hallucinations, visual R44.1 Delusions F22 Paranoia F22 Alcohol use disorder F10.90
[2022-11-08 19:43] VITALS: BP 139/87; PULSE 103; RESP 18; TEMP 36.9; O2SAT 97
[2022-11-08] MEDS: calcium carbonate 500 mg Chew Tablet 1000 MG PO (20:25)
[2022-11-08] MEDS: ARIPiprazole 10 mg Tablet 20 MG PO (20:28)
[2022-11-09 06:00] VITALS: RESP 18
--- NOTE | 2022-11-09 11:20 | DCPLANNER ---
IMM completed 11/09/20 @ 116. Pt was given a copy of rights and stated he understood his rights.
--- NOTE | 2022-11-09 11:21 | W.PM.NPUDCS ---
Diagnoses at Discharge Discharge Diagnosis (1) Acute psychosis: Status: Acute (2) Drug-induced psychotic disorder: Status: Acute (3) Auditory hallucinations: Status: Acute (4) Hallucinations, visual: Status: Acute (5) Delusions: Status: Acute (6) Paranoia: Status: Acute (7) Alcohol use disorder: Status: Acute Reason for Visit Reason for Visit: PSYCH EVAL Brief History: History of Present Illness Otilio Carpio is a 57 year old male who presented to the emergency department with the following report: Chief Complaint: Psychiatric Symptoms Stated Complaint: PSYCH EVAL Time Seen by Provider: 10/31/22 13:47 History of Present Illness: Mr Carpio is a 57-year-old gentleman presenting to the emergency department for psychiatric concerns. He reports some bit of time of having, what I suspect are, auditory and visual hallucinations and paranoia. He reports longstanding history of being spiritual and his third eye in his pineal gland being open however is very vague as far as previous psychiatric diagnoses. He reports since he moved to [place] he was initially out of halfway and living with his mother. He noted seeing people and hearing words in the events. He also endorses people watching him and spying on him and trying to blackmail him. He is unsure of exactly how this happens though thinks it is through perhaps cameras in the events of smoke detectors. He thinks that there are drones that are flying around him lately. He does endorse a history of tobacco use. He endorses a history of drinking denies daily alcohol use and denies history of DT/alcohol withdrawal seizure. He denies recent other substance abuse. Intensity symptoms is moderate to severe. The patient is afraid that somebody is going to check into the hospital hiding a gun up is as to blow my brains out . No other specific changes in health, exacerbating, or alleviating factors identified. He was admitted to the neuropsychiatric unit for definitive treatment of those issues. He was a very resistant historian with very few answers to questions posed to him. And most of those answers were enmeshed in a very serious likely paranoid delusional network. He just kept repeating that they are out to get me and I am not safe anywhere. Any question was perceived as a lack of belief of his report that he was being followed and these people were appearing everywhere. Additionally challenging the situation was a clear hypersomnolence likely connected to a crash from methamphetamine. He had refused thus far to give a urine sample so there was a BAL of but his UDS was not obtained as of this interview and bringing up his history of drugs led to him saying that he was not being believed in him essentially ending the interview. An excerpt of his evaluation/discharge summary from last month is included below for historical context. Per his 09/10/2022 [facility] inpatient psychiatric discharge summary: PSYCH EVAL Brief History: Otilio Carpio is a 57 year old male who was admitted to the neuropsychiatric unit after presenting to the emergency room complaining of seeing and hearing things in his living situation at the [facility]. He reports that he had used methamphetamine approximately 3 days ago. He reports that he has been hearing voices in the ducts of the air vents stating that I am going to kill you . He reports that he has never had any experience like this and states that there have been cameras placed in his mothers room and there that has been observing what she has been doing and has been gathering secret and personal information on the patient as well. He denies any suicidal ideation and stated that he simply needed to get out of the situation. He states he has been in this [facility] facility with his mother for the past 45 days. Prior to that mother had been there for at least a year. He has reported a history of alcohol use but also reports a history of stimulant abuse reporting recent methamphetamine abuse for several years and states most recent use 3 days ago with alcohol as well. He denies any current depression but reports being anxious and frustrated as he reports that the nursing facility at the [facility] needs to be examined for their fraud and there invasion of privacy. The patient reports that he had been in jail for 3 years prior to being released and he is on parole. Inpatient psychiatric history: He had reported previous inpatient treatments in [place] for depression in the past although he did not elaborate. Outpatient psychiatric history: He reports none currently. Drug and alcohol history: He had reported a history of polysubstance abuse including cocaine alcohol and currently methamphetamine. Current medications: None Allergies: Penicillin Medical history: None Surgical history: None Legal history: He reports multiple jail stints, most recently 6 weeks ago. Social history: The patient reports that he had been residing in an assisted living facility with his elderly mother age 81 who has multiple medical problems. He reports having just been released from jail. He reports having several children and states that he had been previously 1 time but is . He states he was born in [place] and had earned a degree in engineering having graduated from [employer]. He reports a history of legal problems involved in producing and delivering illicit substances. Family psychiatric history: None reported Hospital Course Patient slowly acclimated to the individual, group and milieu therapies provided. He presented with significant psychosis and eventually was open to a trial of medication. Abilify was started and titrated to 10 mg p.o. daily with significant improvement. He worked with the treatment team to find a reasonable discharge logistics. They were able to do that. He was able to contract for safety, outside of the hospital prior to discharge. During the hospitalization, patient had routine laboratory studies which were within normal limits except for few outliers. Additionally there was a general medical evaluation which was also within normal limits and revealed no new acute processes. Discharge Summary: At the time of discharge, lethality was denied and psychosis was resolving. Mood and anxiety were well managed. Patient endorsed a plan to avoid all drugs of abuse and follow-up with the aftercare recommendations of the treatment team. Patient was evaluated and deemed to be absent credible lethality, and had achieved the maximum benefit from an inpatient hospitalization, so was discharged. Hospital Course Hospital Course He slowly acclimated to the individual, group and milieu therapies provided. He presented frankly psychotic with significant paranoia that he is being chased by imaginary people. He initially was refusing medication but ultimately let us restart his Abilify with very positive effects. His paranoia started to subside and eventually he was able to begin to question whether the paranoia was authentic or represented a sequela of his drug use. He continues to be resistant to inpatient treatment but did accept referrals to outpatient services. Not having success with low-dose Zoloft. Ultimately he was continuum propranolol and Abilify increased to 20 mg p.o. nightly. He had significant improvement during the stay and worked with the social work team to get connected with outpatient resources. He was able to contract for safety, outside of the hospital prior to discharge. During the hospitalization he had routine laboratory studies which were within normal limits except for few outliers.? Additionally had a general medical evaluation which was also within normal limits and revealed no new acute processes. Discharge Summary At the time of discharge, he endorsed being absent lethality and psychosis.? His mood and anxiety were well managed.? He endorsed a plan to avoid any drugs of abuse and follow-up with services outside of the hospital per the treatment team recommendations.? He was evaluated and deemed absent credible lethality and had received the maximum benefit from an inpatient hospitalization, so he was discharged. Involuntary Hold Information 96 Hour Hold: 96 Hour Involuntary Admission: Yes 96 Hour Hold Ending Date: 11/06/22 96 Hour Hold Ending Time: 00:01 Mental Status Exam MSE Comments: The patient is a thin call white male in hospital scrubs with limited grooming and eye contact. No abnormal movements except for mild psychomotor agitation. More cooperative with exam in mild distress. His speech was more spontaneous with more normal rate and volume. Mood described as better, affect less paranoid. Thought process was linear and organized. Thought content: Patient denied suicidal or homicidal ideation, there are no delusions reported and he had a significant decrease in his paranoia, he did not appear to be attending to internal stimuli. He denied auditory or visual hallucinations. Attention, concentration and memory were improving but none were formally tested. His insight and judgment are improving and his impulse control appeared limited but improving. Discharge Data Studies Completed and Pending: Laboratory Results WBC 13.6 10^3/uL (4.0 -10.0) H 10/31/22 15:33 RBC 4.95 10^6/uL (4.1 -5.3) 10/31/22 15:33 Hgb 14.4 g/dL (11.7-1 6.6) 10/31/22 15:33 Hct 44.6 % (42.0-52.0 ) 10/31/22 15:33 MCV 90.1 fl (80-94) 10/31/22 15:33 MCH 29.1 pg (28.0-34. 0) 10/31/22 15:33 MCHC 32.3 g/dL (30.0-3 6.0) 10/31/22 15:33 RDW 13.3 % (12.1-15.1 ) 10/31/22 15:33 Plt Count 267 10^3/cmm (130 -400) 10/31/22 15:33 MPV 10.6 fL (7.4-10.4 ) H 10/31/22 15:33 Neut % (Auto) 76.4 % 10/31/22 15:33 Lymph % (Auto) 11.7 % 10/31/22 15:33 [place] % (Auto) 10.4 % 10/31/22 15:33 Eos % (Auto) 0.1 % 10/31/22 15:33 Baso % (Auto) 1.0 % 10/31/22 15:33 Neut # (Auto) 10.35 10^3/uL (1. 8-7.7) H 10/31/22 15:33 Lymph # (Auto) 1.6 10^3/uL (0.8- 4.8) 10/31/22 15:33 [place] # (Auto) 1.4 10^3/uL (0.2- 0.9) H 10/31/22 15:33 Eos # (Auto) 0.0 10^3/uL (0.0- 0.8) 10/31/22 15:33 Baso # (Auto) 0.1 10^3/uL (0.0- 0.1) 10/31/22 15:33 Nucleated RBC % (a uto) 0 % 10/31/22 15:33 Nucleated RBCs # 0.0 /100WBC 10/31/22 15:33 Sodium 137 mmol/L (136-1 45) 10/31/22 15:33 Potassium 3.3 mmol/L (3.5-5 .1) L 10/31/22 15:33 Chloride 100 mmol/L (98-10 7) 10/31/22 15:33 Carbon Dioxide 24 mmol/L (22-29) 10/31/22 15:33 Anion Gap 16.3 (5-19) 10/31/22 15:33 BUN 16 mg/dL (6-20) 10/31/22 15:33 Creatinine 0.8 mg/dL (0.7-1. 2) 10/31/22 15:33 GFR Calculation 100.0 mL/min (90- 130) 10/31/22 15:33 Glucose 81 mg/dL (65-115) 10/31/22 15:33 Calculated Osmolal ity 284 mOsm/kg (285- 295) L 10/31/22 15:33 Calcium 9.4 mg/dL (8.5-10 .5) 10/31/22 15:33 Total Bilirubin 1.1 mg/dL (0.15-1 .2) 10/31/22 15:33 AST 36 U/L (0-40) 10/31/22 15:33 ALT 16 U/L (0-41) 10/31/22 15:33 Alkaline Phosphata se 89 U/L (40-130) 10/31/22 15:33 Total Protein 6.7 g/dL (6.6-8.7 ) 10/31/22 15:33 Albumin 4.0 g/dL (3.5-5.2 ) 10/31/22 15:33 Globulin 2.7 g/dL (1.3-4.6 ) 10/31/22 15:33 TSH 0.65 uIU/mL (0.27 -4.20) 10/31/22 15:33 Salicylates < 0.3 mg/dL (3-10 ) L 10/31/22 15:33 Acetaminophen < 5.0 ug/mL (10-3 0) L 10/31/22 15:33 Ethyl Alcohol 18 mg/dL (0-10) H 10/31/22 15:33 Vitals: Last Vital Signs Temp 98.5 F 11/08/22 19:43 Pulse 103 H 11/08/22 19:43 Resp 18 11/09/22 06:00 BP 139/87 11/08/22 19:43 Pulse Ox 97 11/08/22 19:43 O2 Del Method 11/06/22 22:00 Discharge Plan Discharge Patient Disposition: Home Condition: Stable Prescriptions: New propranolol 20 mg Tablet 20 mg PO TID PRN (Reason: Hypertension) 30 Days Qty: 90 1RF aripiprazole 10 mg Tablet 20 mg PO BEDTIME 30 Days Qty: 30 1RF Discontinued aripiprazole 10 mg Tablet 10 mg PO DAILY 30 Days Qty: 30 1RF Discharge Orders: Discharge Order (Routine); Ordered 11/09/22 Ordered By: Lobo Mcgee Referrals: [facility] [Outside] - 4-7 days Discharge Diet: Regular Discharge Activity: Resume usual activity Patient Instructions: Alcohol Abuse, Propranolol (By mouth), Aripiprazole (By mouth), Suicide Prevention (DC), Opioid Safety Discharge Attestations NPU Time Spent in Discharge Care*: less than 30 min Specific Discharge Activities: Specific discharge activities: educating patient, discussing with family independence case manager/social workers/dc planners, documenting/other paperwork and evaluating patient/reviewing data Coding Level of Care Code Acute Chg FW DC note Diagnoses Acute psychosis F23 Drug-induced psychotic disorder F19.959 Auditory hallucinations R44.0 Hallucinations, visual R44.1 Delusions F22 Paranoia F22 Alcohol use disorder F10.90
[2022-11-09 11:32] VITALS: BP 139/87; PULSE 103; RESP 18; TEMP 36.9; O2SAT 97
--- NOTE | 2022-11-09 12:26 | PC.NURSE ---
pt left via car tender, discharge instruction reviewed and accepted by pt. pt denied any question regarding discharge. pt belongings reviewed and accepted as correct by pt.
== END 2022-11-09 12:26 | disposition home or self-care (01) | DRG 897 ==
LOC: ER 14:52 → NP 17:06
PROVIDERS: Admitting Provider Psychiatry & Neurology Psychiatry; Emergency Provider Emergency Medicine; Visit Provider Psychiatry & Neurology Psychiatry
DX: F15.150 Other stimulant abuse with stimulant-induced psychotic disorder with delusions (principal); F10.90 Alcohol use, unspecified, uncomplicated
CPT/HCPCS: 36415; 80053; 80307; 84443; 85025; 97150; 97165; 99238; 99285

== ENCOUNTER 2023-02-22 19:05 | Inpatient (IN) | payer MEDICARE, MEDICAID, SELFPAY ==
[2023-02-22 19:11] VITALS: BP 135/79; PULSE 99; RESP 14; TEMP 36.7; O2SAT 96; BMI 26.4
--- NOTE | 2023-02-22 19:15 | ED.C_ITS ---
HPI - Psych General: Chief Complaint: Psychiatric Symptoms Stated Complaint: si Time Seen by Provider: 02/22/23 19:15 History of Present Illness: Mr Carpio is a 57-year-old gentleman with history of depression and substance abuse presenting to the emergency department for depression with suicidal ideation. He reports voices that are telling him to kill himself. He essentially reports not remembering the past week possibly due to substance abuse though is somewhat vague. Denies physical injury or actual suicide attempt. No other specific changes in health, exacerbating, or alleviating factors identified. Onset (ago): week(s) Duration: getting worse Associated psychiatric symptoms: depression, suicidal ideation, auditory hallucinations and other Review of Systems General: Reports: 10 or more systems reviewed and unremarkable except in HPI and below PFSH ED PFSH: Medical History (Updated 02/22/23 @ 20:36 by Kalyan Mckeon MD) No significant past medical history Surgical History (Updated 11/14/22 @ 19:24 by Kalyan Mckeon MD) No significant past surgical history Social History Smoking and tobacco status: current every day smoker Substance/Drug Use: current Physical Exam Const: COMMON NORMALS: alert GENERAL APPEARANCE: cooperative and well developed HENMT: COMMON NORMALS: normocephalic and atraumatic HEAD & SCALP: normocephalic and atraumatic Eye: COMMON NORMALS: conjunctivae normal CONJUNCTIVA: Yes conjunctivae normal SCLERA: sclerae normal Neck/C-Spine: COMMON NORMALS: supple GENERAL: Yes trachea midline Resp: COMMON NORMALS: normal respiratory effort EFFORT & INSPECTION: Yes able to speak in complete sentences Cardio: COMMON NORMALS: regular rate and regular rhythm RATE: regular rate RHYTHM: regular rhythm GI: COMMON NORMALS: Soft to palpation PALPATION: Yes Soft to palpation and No Tenderness to palpation present (GI) Extremity: GENERAL: Yes normal exam except as noted and No edema Neuro: COMMON NORMALS: moves all extremities SENSORIUM/ORIENTATION: Yes alert and No Orientation impaired Psych: COMMON NORMALS: mental status grossly normal and Normal thought process present THOUGHT PROCESS: Normal thought process present Course Vital Signs: Vital signs: Vital Signs Temperature 97.9 F 03/06/23 13:50 Pulse Rate 86 03/06/23 13:50 Respiratory Rate 17 03/06/23 13:50 Blood Pressure 130/83 03/06/23 13:50 Pulse Oximetry 98 03/06/23 13:50 Oxygen Delivery Me thod Room Air 03/06/23 06:00 MDM - Psych Medical Decision Making 57-year-old male presenting with suicidal ideation. Patient is calm and cooperative. He is nontoxic. Labs demonstrate no significant hematologic or metabolic abnormality requiring ED intervention with exception mild hypokalemia, oral replenishment of potassium ordered.. Urine drug screen and toxic ingestions are with the exception of positive vitamin screen and elevated ethyl alcohol level negative. Given physical exam and clinical history provided there is no indication for imaging at this time. Based on ED evaluation at this point there is no obvious condition that would preclude the patient from inpatient management of psychiatric concerns/symptoms. The results of ED evaluation were discussed with the patient including plan for admission due to requirement for level of care not available if discharged to prevent significant worsening/deterioration. Patient agreeable with plan. Discussed with psychiatry service who was agreeable to admit patient. Medical Records I reviewed the patient's medical records. Lab Data I reviewed the patient's lab results. 02/22/23 19:28 02/22/23 19: Laboratory Results WBC 10.6 10^3/uL (4.0-10.0) H 02/22/23: RBC 4.77 10^6/uL (4.1-5.3) 02/22/23 19: Hgb 14.0 g/dL (11.7-16.6) 02/22/23: Hct 42.6 % (42.0-52.0) 02/22/23: MCV 89.3 fl (80-94) 02/22/23 19: MCH 29.4 pg (28.0-34.0) 02/22/23 19: MCHC 32.9 g/dL (30.0-36.0) 02/22/23: RDW 13.7 % (12.1-15.1) 02/22/23 19: Plt Count 351 10^3/cmm (130-400) 02/22/23 19: MPV 9.8 fL (7.4-10.4) 02/22/23: Neut % (Auto) 64.6 % 02/22/23 19: Lymph % (Auto) 19.8 % 02/22/23 19: [place] % (Auto) 10.8 % 02/22/23: Eos % (Auto) 3.1 % 02/22/23: Baso % (Auto) 0.9 % 02/22/23: Neut # (Auto) 6.85 10^3/uL (1.8-7.7) 02/22/23: Lymph # (Auto) 2.1 10^3/uL (0.8-4.8) 02/22/23: [place] # (Auto) 1.2 10^3/uL (0.2-0.9) H 02/22/23: Eos # (Auto) 0.3 10^3/uL (0.0-0.8) 02/22/23: Baso # (Auto) 0.1 10^3/uL (0.0-0.1) 02/22/23: Nucleated RBC % (auto) 0 % 02/22/23: Nucleated RBCs # 0.0 /100WBC 02/22/23: Sodium 137 mmol/L (136-145) 02/22/23: Potassium 3.3 mmol/L (3.5-5.1) L 02/22/23: Chloride 102 mmol/L (98-107) 02/22/23: Carbon Dioxide 24 mmol/L (22-29) 02/22/23: Anion Gap 14.3 (5-19) 02/22/23: BUN 10 mg/dL (6-20) 02/22/23: Creatinine 0.7 mg/dL (0.7-1.2) 02/22/23 GFR Calculation 116.7 mL/min (90-130) 02/22/23 Glucose 117 mg/dL (65-115) H 02/22/23: Calculated Osmolality 284 mOsm/kg (285-295) L 02/22/23: Calcium 8.8 mg/dL (8.5-10.5) 02/22/23: Total Bilirubin 0.6 mg/dL (0.15-1.2) 02/22/23 19:28 AST 23 U/L (0-40) 02/22/23 19:28 ALT 48 U/L (0-41) H 02/22/23 19:28 Alkaline Phosphatase 118 U/L (40-130) 02/22/23 19:28 Total Protein 7.3 g/dL (6.6-8.7) 02/22/23 19: Albumin 4.0 g/dL (3.5-5.2) 02/22/23: Globulin 3.3 g/dL (1.3-4.6) 02/22/23 19:28 Salicylates 0.7 mg/dL (3-10) L 02/22/23 19:28 Urine Opiates Screen Negative ng/mL (Negative) 02/22/23 20:03 Acetaminophen < 5.0 ug/mL (10-30) L 02/22/23 19:28 Ur Barbiturates Screen Negative ng/mL (Negative) 02/22/23 20:03 Ur Phencyclidine Scrn Negative ng/mL (Negative) 02/22/23 20:03 Ur Amphetamines Screen Positive ng/mL (Negative) H 02/22/23 20:03 U Benzodiazepines Scrn Negative ng/mL (Negative) 02/22/23 20:03 Urine Cocaine Screen Negative ng/mL (Negative) 02/22/23 20:03 U Marijuana (THC) Screen Negative ng/mL (Negative) 02/22/23 20:03 Ethyl Alcohol 69 mg/dL (0-10) H 02/22/23 19:28 Discharge Plan Discharge Patient Disposition: Admitted As Inpatient Admit Provider: Lobo Mcgee Clinical Impression: Suicidal ideation Condition: Stable Coding Level of Care Code ED Form Setter/Driver for Humaira Gomez
[2023-02-22 19:49] LABS: Alanine Aminotransferase 48 U/L (0-41); Alcohol Level 69 mg/dL (0-10); Alkaline Phosphatase 118 U/L (40-130); Anion Gap 14.3 (5-19); Aspartate Amino Transferase 23 U/L (0-40); Blood Urea Nitrogen 10 mg/dL (6-20); Calcium 8.8 mg/dL (8.5-10.5); Carbon Dioxide 24 mmol/L (22-29); Chloride 102 mmol/L (98-107); Globulin 3.3 g/dL (1.3-4.6); Glomerular Filtration Rate 116.7 mL/min (90-130); Glucose 117 mg/dL (65-115); Osmolality Calculated 284 mOsm/kg (285-295); Potassium 3.3 mmol/L (3.5-5.1); Salicylate 0.7 mg/dL (3-10); Sodium 137 mmol/L (136-145); Total Bilirubin 0.6 mg/dL (0.15-1.2); Total Protein 7.3 g/dL (6.6-8.7)
[2023-02-22 19:53] LABS: Acetaminophen < 5.0 ug/mL (10-30); Basophils # 0.1 10^3/uL (0.0-0.1); Basophils % 0.9 %; Eosinophils # 0.3 10^3/uL (0.0-0.8); Eosinophils % 3.1 %; Hematocrit 42.6 % (42.0-52.0); Lymphocytes # 2.1 10^3/uL (0.8-4.8); Lymphocytes % 19.8 %; Mean Corpuscular HGB Conc 32.9 g/dL (30.0-36.0); Mean Corpuscular Hemoglobin 29.4 pg (28.0-34.0); Mean Corpuscular Volume 89.3 fl (80-94); Mean Platelet Volume 9.8 fL (7.4-10.4); Monocytes # 1.2 10^3/uL (0.2-0.9); Monocytes % 10.8 %; Neutrophils # 6.85 10^3/uL (1.8-7.7); Neutrophils % 64.6 %; Nucleated Red Blood Cells % 0 %; Platelet Count 351 10^3/cmm (130-400); Red Blood Count 4.77 10^6/uL (4.1-5.3); Red Cell Distribution Width 13.7 % (12.1-15.1); White Blood Count 10.6 10^3/uL (4.0-10.0)
[2023-02-22 20:17] LABS: Amphetamines Screen Urine Positive (Negative); Barbiturates Screen Urine Negative (Negative); Benzodiazepines Screen Urine Negative (Negative); Cocaine Screen Urine Negative (Negative); Opiate Screen Urine Negative (Negative); PCP Screen Urine Negative (Negative); THC Screen Urine Negative (Negative)
[2023-02-22] MEDS: potassium chloride oral liq 20 mEq/15 mL UDC 40 MEQ PO (20:20)
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
--- NOTE | 2023-02-22 20:54 | PC.NURSE ---
Pt served with copy of 96 Hour Hold rights by this nurse and security. Did did not present any questions at this time.
[2023-02-22 21:16] VITALS: BP 144/92; PULSE 86; RESP 18; TEMP 36.1; O2SAT 98
[2023-02-22] MEDS: OLANZapine 5 mg ODT PO (21:49)
[2023-02-22] MEDS: trazodone 50 mg Tablet PO (21:49)
[2023-02-22 22:00] VITALS: BP 144/92; PULSE 86; RESP 18; TEMP 36.1; O2SAT 98
--- NOTE | 2023-02-23 06:20 | P.NPUHP_ITS ---
Providers/Chief Complaint Admitting Physician: Lobo Mcgee MD Chief Complaint: si HPI NPU History of Present Illness Otilio Carpio is a 57 year old male who presented to the emergency department with the following report: Chief Complaint: Psychiatric Symptoms Stated Complaint: si Time Seen by Provider: 02/22/23 19:15 History of Present Illness: Mr Carpio is a 57-year-old gentleman with history of depression and substance abuse presenting to the emergency department for depression with suicidal ideation. He reports voices that are telling him to kill himself. He essentially reports not remembering the past week possibly due to substance abuse though is somewhat vague. Denies physical injury or actual suicide attempt. No other specific changes in health, exacerbating, or alleviating factors identified. Patient was admitted to the neuropsychiatric unit for definitive treatment of those issues. He presents today very isolative and sleeping most of the time. Multiple attempts were made to engage him prior to the opportunity for a brief encounter. He was very abrupt and had very negative aggressive posturing. He is known to this contract writer from previous stays and so his likelihood for aggressive acting out has been limited thus far. He once again presents with positive UDS for methamphetamine but having psychosis and feeling irritable that anyone would challenge the veracity of his psychosis. Much of the challenging is essentially asking reasonable questions about the things he reports that any follow-up questions about the psychotic symptoms are seen by him as questioning what he is saying likely an off shoot of his paranoia. He was limited in his ability to talk about psychosocial conditions including his living conditions etc. So an excerpt of his last hospitalization which was about 3 and half months ago is included below for additional information. He was reporting taking Zyprexa now and we talked about increasing that dose and we could determine what the initial dose was because he did not know or did not recall. Per his 11/09/2022 [facility] inpatient psychiatric discharge summary: Discharge Diagnosis (1) Acute psychosis: Status: Acute (2) Drug-induced psychotic disorder: Status: Acute (3) Auditory hallucinations: Status: Acute (4) Hallucinations, visual: Status: Acute (5) Delusions: Status: Acute (6) Paranoia: Status: Acute (7) Alcohol use disorder: Status: Acute Reason for Visit Reason for Visit: PSYCH EVAL Brief History: History of Present Illness Otilio Carpio is a 57 year old male who presented to the emergency department with the following report: Chief Complaint: Psychiatric Symptoms Stated Complaint: PSYCH EVAL Time Seen by Provider: 10/31/22 13:47 History of Present Illness: Mr Carpio is a 57-year-old gentleman presenting to the emergency department for psychiatric concerns. He reports some bit of time of having, what I suspect are, auditory and visual hallucinations and paranoia. He reports longstanding history of being spiritu al and his third eye in his pineal gland being open however is very vague as far as previous psychiatric diagnoses. He reports since he moved to [place] he was initially out of fpc and living with his mother. He noted seeing people and hearing words in the events. He also endorses people watching him and spying on him and trying to blackmail him. He is unsure of exactly how this happens though thinks it is through perhaps cameras in the events of smoke detectors. He thinks that there are drones that are flying around him lately. He does endorse a history of tobacco use. He endorses a history of drinking denies daily alcohol use and denies history of DT/alcohol withdrawal seizure. He denies recent other substance abuse. Intensity symptoms is moderate to severe. The patient is afraid that somebody is going to check into the hospital hiding a gun up is as to blow my brains out . No other specific changes in health, exacerbating, or alleviating factors identified. He was admitted to the neuropsychiatric unit for definitive treatment of those issues. He was a very resistant historian with very few answers to questions posed to him. And most of those answers were enmeshed in a very serious likely paranoid delusional network. He just kept repeating that they are out to get me and I am not safe anywhere. Any question was perceived as a lack of belief of his report that he was being followed and these people were appearing everywhere. Additionally challenging the situation was a clear hypersomnolence likely connected to a crash from methamphetamine. He had refused thus far to give a urine sample so there was a BAL of but his UDS was not obtained as of is interview and bringing up his history of drugs led to him saying that he was not being believed in him essentially ending the interview. An excerpt of his evaluation/discharge summary from last month is included below for historical context. Per his 09/10/2022 [facility] inpatient psychiatric discharge summary: PSYCH EVAL Brief History: Otilio Carpio is a 57 year old male who was admitted to the neuropsychiatric unit after presenting to the emergency room complaining of seeing and hearing things in his living situation at the [facility]. He reports that he had used methamphetamine approximately 3 days ago. He reports that he has been hearing voices in the ducts of the air vents stating that I am going to kill you . He reports that he has never had any experience like this and states that there have been cameras placed in his mothers room and there that has been observing what she has been doing and has been gathering secret and personal information on the patient as well. He denies any suicidal ideation and stated that he simply needed to get out of the situation. He states he has been in this [facility] facility with his mother for the past 45 days. Prior to that mother had been there for at least a year. He has reported a history of alcohol use but also reports a history of stimulant abuse reporting recent methamphetamine abuse for several years and states most recent use 3 days ago with alcohol as well. He denies any current depression but reports being anxious and frustrated as he reports that the nursing facility at the [facility] needs to be examined for their fraud and there invasion of privacy. The patient reports that he had been in senior care for 3 years prior to being released and he is on parole. Inpatient psychiatric history: He had reported previous inpatient treatments in [place] for depression in the past although he did not elaborate. Outpatient psychiatric history: He reports none currently. Drug and alcohol history: He had reported a history of polysubstance abuse including cocaine alcohol and currently methamphetamine. Current medications: None Allergies: Penicillin Medical history: None Surgical history: None Legal history: He reports multiple senior care stints, most recently 6 weeks ago. Social history: The patient reports that he had been residing in an assisted living facility with his elderly mother age 81 who has multiple medical problems. He reports having just been released from senior care. He reports having several children and states that he had been previously 1 time but is . He states he was born in [place] and had earned a degree in engineering having graduated from [employer]. He reports a history of legal problems involved in producing and delivering illicit substances. Family psychiatric history: None reported Hospital Course He slowly acclimated to the individual, group and milieu therapies provided. He presented frankly psychotic with significant paranoia that he is being chased by imaginary people. He initially was refusing medication but ultimately let us restart his Abilify with very positive effects. His paranoia started to subside and eventually he was able to begin to question whether the paranoia was authentic or represented a sequela of his drug use. He continues to be resistant to inpatient treatment but did accept referrals to outpatient services. Not having success with low-dose Zoloft. Ultimately he was continuum propranolol and Abilify increased to 20 mg p.o. nightly. He had significant improvement during the stay and worked with the social work team to get connected with outpatient resources. He was able to contract for safety, outside of the hospital prior to discharge. During the hospitalization he had routine laboratory studies which were within normal limits except for few outliers. Additionally had a general medical evaluation which was also within normal limits and revealed no new acute processes. Discharge Summary At the time of discharge, he endorsed being absent lethality and psychosis. His mood and anxiety were well managed. He endorsed a plan to avoid any drugs of abuse and follow-up with services outside of the hospital per the treatment team recommendations. He was evaluated and deemed absent credible lethality and had received the maximum benefit from an inpatient hospitalization, so he was discharged. Meds NPU Home Medications Medication Instructions Recorded Confirmed Last Taken Type No Known Home Medications 02/22/23 02/22/23 Unknown History Allergies Allergy/AdvReac Type Severity Reaction Status Date / Time Penicillins Allergy Unknown Unknown Verified 02/22/23 19:11 PENDING SALE TO [facility] NPU PFS: Medical History (Updated 02/22/23 @ 20:36 by Kalyan Mckeon MD) No significant past medical history Surgical History (Updated 11/14/22 @ 19:24 by Kalyan Mckeon MD) No significant past surgical history Social History Smoking and tobacco status: current every day smoker Substance/Drug Use: current Mental Status Exam MSE Comments: The patient is a well-nourished well-developed tall white male in hospital scrubs with limited grooming and eye contact. No abnormal movements except for psychomotor agitation. Mostly uncooperative exam in moderate distress. His speech was limited with increased rate and decreased volume. Mood described sad, affect paranoid. Thought process was linear. Thought content: Patient denied suicidal or homicidal ideation, there are no delusions reported but he appeared to have significant paranoia, he appeared to be responding to internal stimuli. He had clear evidence of bizarre delusions regarding people following him. Attention, concentration and memory were impaired due to his psychosis but none were formally tested. His insight was poor. His judgment is impaired. His impulse control appeared poor as well. Vitals/I&O/Wt Last Vital Signs Temp 97.0 F L 02/22/23 22:00 Pulse 86 02/22/23 22:00 Resp 18 02/22/23 22:00 BP 144/92 02/22/23 22:00 Pulse Ox 98 02/22/23 22:00 O2 Del Method Room Air 02/22/23 21:24 Weight last 48 hrs Weight 90.718 kg Data NPU 02/22/23 19:28 02/22/23 19:28 A&P Assessment and plan (1) Acute psychosis: (2) Drug-induced psychotic disorder: (3) Auditory hallucinations: (4) Hallucinations, visual: (5) Delusions: (6) Paranoia: (7) Alcohol use disorder: Plan Is a 57-year-old white male with history of polysubstance abuse and known from previous inpatient stays presents again with active methamphetamine use and psychotic symptoms including auditory and visual hallucinations along with paranoid delusions. 1. Continue current medication. Restart antipsychotic possibly on Zyprexa. 2. Continue every 15 minute check for safety. 3. Encourage individual group and milieu therapy. 4. recommend sober living treatment at the highest level of care to which the patient is willing to commit. Involuntary Hold Information 96 Hour Hold: 96 Hour Involuntary Admission: Yes 96 Hour Hold Ending Date: 03/01/23 96 Hour Hold Ending Time: 00:01 Attestations NPU Medical Necessity Statement*: Inpatient hospitalization is medically necessary and the clinically appropriate intervention at this time. We will monitor medications and make changes as indicated. The patient will be in the hospital for over 2 midnights. The patient's likely length of stay is 5 to 7 days. Coding Level of Care Code Acute Code for [facility] Fwd Diagnoses Acute psychosis F23 Drug-induced psychotic disorder F19.959 Auditory hallucinations R44.0 Hallucinations, visual R44.1 Delusions F22 Paranoia F22 Alcohol use disorder F10.90
[2023-02-23] MEDS: multivitamin therapeutic Tablet 1 TAB PO (08:32)
[2023-02-23] MEDS: thiamine 100 mg Tablet PO (08:32)
[2023-02-23] MEDS: folic acid 1 mg Tablet PO (08:32)
--- NOTE | 2023-02-23 09:30 | PC.OT ---
OT EVALUATION HELD THIS DATE PER NURSING REQUEST
[2023-02-23 14:00] VITALS: BP 126/84; PULSE 90; O2SAT 95
[2023-02-23] MEDS: hyDROXYzine 25 mg Capsule 50 MG PO (20:18)
[2023-02-23] MEDS: trazodone 50 mg Tablet PO (20:18)
[2023-02-23 22:00] VITALS: BP 112/68; PULSE 82; RESP 18; TEMP 36.6; O2SAT 97
[2023-02-24 06:00] VITALS: RESP 18
[2023-02-24] MEDS: thiamine 100 mg Tablet PO (09:20)
[2023-02-24] MEDS: multivitamin therapeutic Tablet 1 TAB PO (09:20)
[2023-02-24] MEDS: folic acid 1 mg Tablet PO (09:20)
--- NOTE | 2023-02-24 09:20 | PC.OT ---
OT EVALUATION ATTEMPTED THIS A.M. PATIENT IS VISITING WITH MEDICAL [facility]EARCH ASSOC[employer]. WILL ATTEMPT AGAIN AT A LATER TIME.
[2023-02-24] MEDS: OLANZapine 5 mg ODT PO (09:22)
[2023-02-24 14:00] VITALS: BP 121/82; PULSE 76; RESP 14; TEMP 36.6; O2SAT 95
--- NOTE | 2023-02-24 19:07 | P.NPUPN_ITS ---
Subjective NPU Subjective: Patient presented today continuing to be quite irritable and continuing to have hyperreligious thoughts as well as paranoia and persecutory thinking about Satan patient over his body. We discussed the fact that this is not unlike previous hospitalizations when he has been using. Where he has had psychotic thoughts that were undeniably real to him and that it took days away from substances and on medication for there to be improvement. He is feeling very despondent and feeling like there is no hope. Mental Status Exam MSE Comments: The patient is a well-nourished well-developed tall white male in hospital scrubs with limited grooming and eye contact. No abnormal movements except for psychomotor agitation. Mostly uncooperative exam in moderate distress. His speech was limited with increased rate and decreased volume. Mood described as I do not know, affect paranoid and overwhelmed. Thought process was linear. Thought content: Patient denied suicidal or homicidal ideation, there are no delusions reported but he appeared to have significant paranoia, he appeared to be responding to internal stimuli. He had clear evidence of bizarre delusions regarding people following him. Attention, concentration and memory were impaired due to his psychosis but none were formally tested. His insight was poor. His judgment is impaired. His impulse control appeared poor as well. Vitals/I&O/Wt Last Vital Signs Temp 97.9 F 02/24/23 14:00 Pulse 76 02/24/23 14:00 Resp 14 02/24/23 14:00 BP 121/82 02/24/23 14:00 Pulse Ox 95 02/24/23 14:00 O2 Del Method Room Air 02/24/23 14:00 Weight last 48 hrs Weight 90.718 kg Data NPU 02/22/23 19:28 02/22/23 19:28 A&P Assessment and plan (1) Acute psychosis: (2) Drug-induced psychotic disorder: (3) Auditory hallucinations: (4) Hallucinations, visual: (5) Delusions: (6) Paranoia: (7) Alcohol use disorder: Plan Is a 57-year-old white male with history of polysubstance abuse and known from previous inpatient stays presents again with active methamphetamine use and psychotic symptoms including auditory and visual hallucinations along with paranoid delusions. 1. Continue current medication. Restarted 15 mg of Zyprexa p.o. nightly. 2. Continue every 15 minute check for safety. 3. Encourage individual group and milieu therapy. 4. recommend sober living treatment at the highest level of care to which the patient is willing to commit. Involuntary Hold Information 96 Hour Hold: 96 Hour Involuntary Admission: Yes 96 Hour Hold Ending Date: 03/01/23 96 Hour Hold Ending Time: 00:01 Attestations NPU Medical Necessity Statement*: Inpatient hospitalization is medically necessary and the clinically appropriate intervention at this time. We will monitor medications and make changes as indicated. The patient's likely length of stay is 5 to 7 days. Coding Level of Care Code Acute Code for [facility] Fwd Diagnoses Acute psychosis F23 Drug-induced psychotic disorder F19.959 Auditory hallucinations R44.0 Hallucinations, visual R44.1 Delusions F22 Paranoia F22 Alcohol use disorder F10.90
[2023-02-24] MEDS: OLANZapine 5 mg TABLET 15 MG PO (20:19)
[2023-02-24 21:28] VITALS: RESP 14
[2023-02-25 06:00] VITALS: RESP 12
[2023-02-25] MEDS: multivitamin therapeutic Tablet 1 TAB PO (09:57)
[2023-02-25] MEDS: folic acid 1 mg Tablet PO (09:57)
[2023-02-25] MEDS: propranolol 20 mg Tablet PO (09:57)
[2023-02-25] MEDS: thiamine 100 mg Tablet PO (09:57)
[2023-02-25 14:00] VITALS: RESP 16
--- NOTE | 2023-02-25 17:49 | W.PM.NPUPNS ---
Subjective NPU Subjective: Patient presented today reporting that he is still in great distress. Still struggling with the delusion that he is being possessed by Bette. He denied any side effects of medication but reported struggles with continued bizarre thoughts. He struggled with the thought that he is unlikely better. We continue to discuss that he has a history with us and every times, his symptoms have been fixed initially but with medication have resolved and led to significant movements and return to rational thinking. Mental Status Exam MSE Comments: The patient is a well-nourished well-developed tall white male in hospital scrubs with limited grooming and eye contact. No abnormal movements except for psychomotor agitation. Mostly uncooperative exam in moderate distress. His speech was limited with increased rate and decreased volume. Mood described as I do not know, affect paranoid and overwhelmed. Thought process was linear. Thought content: Patient denied suicidal or homicidal ideation, there are no delusions reported but he appeared to have significant paranoia, he appeared to be responding to internal stimuli. He had clear evidence of bizarre delusions regarding people following him. Attention, concentration and memory were impaired due to his psychosis but none were formally tested. His insight was poor. His judgment is impaired. His impulse control appeared poor as well. Vitals/I&O/Wt Last Vital Signs Temp 98.1 F 02/25/23 20:11 Pulse 71 02/25/23 20:11 Resp 16 02/25/23 20:11 BP 134/78 02/25/23 20:11 Pulse Ox 97 02/25/23 20:11 O2 Del Method Room Air 02/25/23 20:11 Data NPU 02/22/23 19:28 02/22/23 19:28 A&P Assessment and plan (1) Acute psychosis: (2) Drug-induced psychotic disorder: (3) Auditory hallucinations: (4) Hallucinations, visual: (5) Delusions: (6) Paranoia: (7) Alcohol use disorder: Plan Is a 57-year-old white male with history of polysubstance abuse and known from previous inpatient stays presents again with active methamphetamine use and psychotic symptoms including auditory and visual hallucinations along with paranoid delusions. 1. Continue current medication. Restarted 15 mg of Zyprexa p.o. nightly. Continue with Zyprexa titration. Noteworthy that the patient has had success on Abilify as well and could consider long-acting injectable. 2. Continue every 15 minute check for safety. 3. Encourage individual group and milieu therapy. 4. recommend sober living treatment at the highest level of care to which the patient is willing to commit. Involuntary Hold Information 96 Hour Hold: 96 Hour Involuntary Admission: Yes 96 Hour Hold Ending Date: 03/01/23 96 Hour Hold Ending Time: 00:01 Attestations NPU Medical Necessity Statement*: Inpatient hospitalization is medically necessary and the clinically appropriate intervention at this time. We will monitor medications and make changes as indicated. The patient's likely length of stay is 5 to 7 days. Coding Level of Care Code Acute Code for [facility] Fwd Diagnoses Acute psychosis F23 Drug-induced psychotic disorder F19.959 Auditory hallucinations R44.0 Hallucinations, visual R44.1 Delusions F22 Paranoia F22 Alcohol use disorder F10.90
[2023-02-25] MEDS: neomycin-poly-bacitracin oint 28 gm 1 APPLIC TOPICAL (18:44)
[2023-02-25] MEDS: OLANZapine 5 mg TABLET 15 MG PO (20:00)
[2023-02-25] MEDS: LORazepam 2 mg Tablet PO (20:05)
[2023-02-25 20:11] VITALS: BP 134/78; PULSE 71; RESP 16; TEMP 36.7; O2SAT 97
[2023-02-26 06:00] VITALS: RESP 13
[2023-02-26] MEDS: thiamine 100 mg Tablet PO (09:09)
[2023-02-26] MEDS: folic acid 1 mg Tablet PO (09:09)
[2023-02-26] MEDS: multivitamin therapeutic Tablet 1 TAB PO (09:09)
[2023-02-26 14:00] VITALS: BP 118/73; PULSE 70; RESP 16; TEMP 36.7; O2SAT 96
--- NOTE | 2023-02-26 16:02 | P.NPUPN_ITS ---
Subjective NPU Subjective: Patient presented today reporting that he was feeling hopeless. He once again recounted the story of Bette introducing himself as Prince Neumann, entering his body and his body limited lower his bed for some moments before falling back down to the bed and him reporting that he has been possessed ever since. He reports that there is nothing he can do. Reports that prior only makes saying that in the situation worse. He agreed to continued titration of his Zyprexa back to previous dosing but also explained that it did not work. We continue to discuss this as his pattern previously and that he always gets better. We also discussed the methamphetamine use which seems to irritate him as he would continue to say I do not care about that stuff. Mental Status Exam MSE Comments: The patient is a well-nourished well-developed tall white male in hospital scrubs with limited grooming and eye contact. No abnormal movements except for psychomotor agitation. Mostly uncooperative exam in moderate distress. His speech was limited with increased rate and decreased volume. Mood described as I do not know, affect paranoid and overwhelmed. Thought process was linear. Thought content: Patient denied suicidal or homicidal ideation, there are no delusions reported but he appeared to have significant paranoia, he appeared to be responding to internal stimuli. He had clear evidence of bizarre delusions regarding people following him. Attention, concentration and memory were impair ed due to his psychosis but none were formally tested. His insight was poor. His judgment is impaired. His impulse control appeared poor as well. Vitals/I&O/Wt Last Vital Signs Temp 98.0 F 02/26/23 14:00 Pulse 70 02/26/23 14:00 Resp 18 02/26/23 21:31 BP 118/73 02/26/23 14:00 Pulse Ox 96 02/26/23 14:00 O2 Del Method Room Air 02/26/23 14:00 Data NPU 02/22/23 19:28 02/22/23 19:28 A&P Assessment and plan (1) Acute psychosis: (2) Drug-induced psychotic disorder: (3) Auditory hallucinations: (4) Hallucinations, visual: (5) Delusions: (6) Paranoia: (7) Alcohol use disorder: Plan Is a 57-year-old white male with history of polysubstance abuse and known from previous inpatient stays presents again with active methamphetamine use and psychotic symptoms including auditory and visual hallucinations along with paranoid delusions. 1. Continue current medication. Restarted 15 mg of Zyprexa p.o. nightly. Continue with Zyprexa titration. We will increase to 7.5 mg p.o. every morning and 20 mg p.o. nightly. Noteworthy that the patient has had success on Abilify as well and could consider long-acting injectable. However he reports that Abilify dampen the voices and did not make them go away. But he also acknowledges continued use of methamphetamine 2. Continue every 15 minute check for safety. 3. Encourage individual group and milieu therapy. 4. recommend sober living treatment at the highest level of care to which the patient is willing to commit. Involuntary Hold Information 96 Hour Hold: 96 Hour Involuntary Admission: Yes 96 Hour Hold Ending Date: 03/01/23 96 Hour Hold Ending Time: 00:01 Attestations NPU Medical Necessity Statement*: Inpatient hospitalization is medically necessary and the clinically appropriate intervention at this time. We will monitor medications and make changes as indicated. The patient's likely length of stay is 5 to 7 days. Coding Level of Care Code Acute Code for [facility] Fwd Diagnoses Acute psychosis F23 Drug-induced psychotic disorder F19.959 Auditory hallucinations R44.0 Hallucinations, visual R44.1 Delusions F22 Paranoia F22 Alcohol use disorder F10.90
[2023-02-26] MEDS: neomycin-poly-bacitracin oint 28 gm 1 APPLIC TOPICAL (16:53)
[2023-02-26] MEDS: OLANZapine 5 mg TABLET 15 MG PO (20:42)
[2023-02-26] MEDS: trazodone 50 mg Tablet PO (20:43)
[2023-02-26 21:31] VITALS: RESP 18
[2023-02-27 06:00] VITALS: RESP 16
[2023-02-27] MEDS: OLANZapine 5 mg TABLET 7.5 MG PO (08:52)
[2023-02-27] MEDS: multivitamin therapeutic Tablet 1 TAB PO (08:52)
[2023-02-27] MEDS: thiamine 100 mg Tablet PO (08:53)
[2023-02-27] MEDS: folic acid 1 mg Tablet PO (08:53)
--- NOTE | 2023-02-27 12:01 | P.NPUPN_ITS ---
Subjective NPU Subjective: Patient presented today reporting that he is overwhelmed by his demon possession. 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 He continues to feel hopeless that he can do anything to make the situation better. However he did identify a possible need to go to [facility] which may signal a break in the delusional nature and acknowledgment of his addiction situation. However he appears no different. He was supportive on the increases of the medication and continues to report that he had better success with Zyprexa over Abilify. Mental Status Exam MSE Comments: The patient is a well-nourished well-developed tall white male in hospital scrubs with limited grooming and eye contact. No abnormal movements except for psychomotor agitation. Mostly uncooperative exam in moderate distress. His speech was limited with increased rate and decreased volume. Mood described as I am screwed, affect paranoid and overwhelmed. Thought process was linear. Thought content: Patient denied suicidal or homicidal ideation, there are no delusions reported but he appeared to have significant paranoia, he appeared to be responding to internal stimuli. He had clear evidence of bizarre delusions regarding people following him. Attention, concentration and memory were impaired due to his psychosis but none were formally tested. His insight was poor. His judgment is impaired. His impulse control appeared poor as well. Vitals/I&O/Wt Last Vital Signs Temp 98.0 F 02/26/23 14:00 Pulse 70 02/26/23 14:00 Resp 16 02/27/23 06:00 BP 118/73 02/26/23 14:00 Pulse Ox 96 02/26/23 14:00 O2 Del Method Room Air 02/26/23 14:00 Data NPU 02/22/23 19:28 02/22/23 19:28 A&P Assessment and plan (1) Acute psychosis: (2) Drug-induced psychotic disorder: (3) Auditory hallucinations: (4) Hallucinations, visual: (5) Delusions: (6) Paranoia: (7) Alcohol use disorder: Plan Is a 57-year-old white male with history of polysubstance abuse and known from previous inpatient stays presents again with active methamphetamine use and psychotic symptoms including auditory and visual hallucinations along with paranoid delusions. 1. Continue current medication. Restarted 15 mg of Zyprexa p.o. nightly. Continue with Zyprexa titration. Increased to 7.5 mg p.o. every morning and 20 mg p.o. nightly. Noteworthy that the patient has had success on Abilify as well and could consider long-acting injectable. However he reports that Abilify dampen the voices and did not make them go away. But he also acknowledges cont inued use of methamphetamine 2. Continue every 15 minute check for safety. 3. Encourage individual group and milieu therapy. 4. recommend sober living treatment at the highest level of care to which the patient is willing to commit. Involuntary Hold Information 96 Hour Hold: 96 Hour Involuntary Admission: Yes 96 Hour Hold Ending Date: 03/01/23 96 Hour Hold Ending Time: 00:01 Attestations NPU Medical Necessity Statement*: Inpatient hospitalization is medically necessary and the clinically appropriate intervention at this time. We will monitor medications and make changes as indicated. The patient's likely length of stay is 5 to 7 days. Coding Level of Care Code Acute Code for [facility] Diagnoses Acute psychosis F23 Drug-induced psychotic disorder F19.959 Auditory hallucinations R44.0 Hallucinations, visual R44.1 Delusions F22 Paranoia F22 Alcohol use disorder F10.90
[2023-02-27 14:00] VITALS: BP 121/72; PULSE 77; RESP 16; TEMP 36.8; O2SAT 97
[2023-02-27] MEDS: OLANZapine 10 mg TABLET 20 MG PO (20:21)
[2023-02-27] MEDS: nicotine 4 mg lozenge MUCOUS MEM ×2 (20:24→22:47)
[2023-02-27] MEDS: trazodone 50 mg Tablet PO ×2 (21:30→22:14)
[2023-02-27 21:53] VITALS: BP 128/82; PULSE 80; RESP 18; TEMP 36.7; O2SAT 96
[2023-02-28 06:00] VITALS: RESP 16
[2023-02-28] MEDS: OLANZapine 5 mg TABLET 7.5 MG PO (08:49)
[2023-02-28] MEDS: multivitamin therapeutic Tablet 1 TAB PO (08:50)
[2023-02-28] MEDS: folic acid 1 mg Tablet PO (08:50)
[2023-02-28] MEDS: thiamine 100 mg Tablet PO (08:50)
--- NOTE | 2023-02-28 10:34 | W.PM.NPUPNS ---
Subjective NPU Subjective: Patient presented today with the first slight movement in his thinking. He seemed to identify a certain level a small improvement and the impact on his addiction and methamphetamine use on his auditory hallucinations. He was very focused on the idea of needing to go to [facility] for some rehab to help him with that and need for him to maintain his medications. He reports that at times he stopped his medications and then tried to self medicate with other things leading to situation like this, but he still at times returned back to the fact of being possessed by Bette. Mental Status Exam MSE Comments: The patient is a well-nourished well-developed tall white male in hospital scrubs with limited grooming and eye contact. No abnormal movements except for psychomotor agitation. Mostly uncooperative exam in mild to moderate distress. His speech was more spontaneous with increased rate and decreased volume. Mood described as maybe a tiny better, affect paranoid and less overwhelmed. Thought process was linear. Thought content: Patient denied suicidal or homicidal ideation, there are no delusions reported but he appeared to have significant paranoia, he appeared to be responding to internal stimuli. He had clear evidence of bizarre delusions regarding people following him. Attention, concentration and memory were impaired due to his psychosis but none were formally tested. His insight was poor. His judgment is impaired. His impulse control appeared poor as well. Vitals/I&O/Wt Last Vital Signs Temp 98.0 F 02/27/23 21:53 Pulse 80 02/27/23 21:53 Resp 16 02/28/23 06:00 BP 128/82 02/27/23 21:53 Pulse Ox 96 02/27/23 21:53 O2 Del Method Room Air 02/27/23 14:00 Weight last 48 hrs Weight 93.1 kg Data NPU 02/22/23 19:28 02/22/23 19:28 A&P Assessment and plan (1) Acute psychosis: (2) Drug-induced psychotic disorder: (3) Auditory hallucinations: (4) Hallucinations, visual: (5) Delusions: (6) Paranoia: (7) Alcohol use disorder: Plan Is a 57-year-old white male with history of polysubstance abuse and known from previous inpatient stays presents again with active methamphetamine use and psychotic symptoms including auditory and visual hallucinations along with paranoid delusions. 1. Continue current medication. Restarted 15 mg of Zyprexa p.o. nightly. Continue with Zyprexa titration. Increased to 7.5 mg p.o. every morning and 20 mg p.o. nightly. We will increase the morning dose to 10 mg tomorrow. Noteworthy that the patient has had success on Abilify as well and could consider long-acting injectable. However he reports that Abilify dampen the voices and did not make them go away. But he also acknowledges continued use of methamphetamine 2. Continue every 15 minute check for safety. 3. Encourage individual group and milieu therapy. 4. recommend sober living treatment at the highest level of care to which the patient is willing to commit. Involuntary Hold Information 96 Hour Hold: 96 Hour Involuntary Admission: Yes 96 Hour Hold Ending Date: 03/01/23 96 Hour Hold Ending Time: 00:01 Attestations NPU Medical Necessity Statement*: Inpatient hospitalization is medically necessary and the clinically appropriate intervention at this time. We will monitor medications and make changes as indicated. The patient's likely length of stay is 4-6 days. 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
[2023-02-28 14:00] VITALS: BP 115/70; PULSE 74; RESP 14; TEMP 36.6; O2SAT 98
[2023-02-28] MEDS: nicotine 4 mg lozenge MUCOUS MEM (17:29)
[2023-02-28] MEDS: nicotine 2 mg Gum BUCCAL ×2 (19:30→21:49)
[2023-02-28 20:32] VITALS: BP 117/77; PULSE 105; RESP 18; TEMP 36.3; O2SAT 98
[2023-02-28] MEDS: trazodone 50 mg Tablet PO ×2 (20:45→21:49)
[2023-02-28] MEDS: OLANZapine 10 mg TABLET 20 MG PO (20:45)
[2023-03-01 06:00] VITALS: BP 120/72; PULSE 70; RESP 16
[2023-03-01] MEDS: multivitamin therapeutic Tablet 1 TAB PO (08:25)
[2023-03-01] MEDS: folic acid 1 mg Tablet PO (08:25)
[2023-03-01] MEDS: OLANZapine 5 mg TABLET 10 MG PO (08:25)
[2023-03-01] MEDS: thiamine 100 mg Tablet PO (08:25)
[2023-03-01] MEDS: nicotine 2 mg Gum BUCCAL ×2 (12:36→18:50)
[2023-03-01 14:00] VITALS: BP 119/76; PULSE 91; RESP 16; TEMP 36.4; O2SAT 97
--- NOTE | 2023-03-01 16:31 | P.NPUPN_ITS ---
Subjective NPU Subjective: Patient presented today continuing to have slow improvement. He continues to acknowledge the need for sober living treatment but appears anxious to get out of here and identified that if sober living was available he can go to a custodial. We discussed the need for treatment and the need to take our time with identifying his improvement and where to go from here. We continue to titrate his Zyprexa now to 10 mg in the morning start today with a 20 mg at night. He was asking about his 21-day hold hearing tomorrow and we discussed the fact that we did not feel he is ready to go and there are no options other than 21 days. We discussed the fact that that can be concluded early. Mental Status Exam MSE Comments: The patient is a well-nourished well-developed tall white male in hospital sc rubs with limited grooming and eye contact. No abnormal movements except for psychomotor agitation. Mostly uncooperative exam in mild to moderate distress. His speech was more spontaneous with increased rate and decreased volume. Mood described as maybe a tiny better, affect paranoid and less overwhelmed. Thought process was linear. Thought content: Patient denied suicidal or homicidal ideat ion, there are no delusions reported but he appeared to have significant paranoia, he appeared to be responding to internal stimuli. He had clear evidence of bizarre delusions regarding people following him. Attention, concentration and memory were impaired due to his psychosis but none were formal ly tested. His insight was poor. His judgment is impaired. His impulse control appeared poor as well. Vitals/I&O/Wt Last Vital Signs Temp 97.5 F L 03/01/23 20:41 Pulse 86 03/01/23 20:41 Resp 18 03/01/23 20:41 BP 134/85 03/01/23 20:41 Pulse Ox 96 03/01/23 20:41 O2 Del Method Room Air 03/01/23 06:00 Weight last 48 hrs Weight 93.1 kg Data NPU 02/22/23 19:28 02/22/23 19:28 A&P Assessment and plan (1) Acute psychosis: (2) Drug-induced psychotic disorder: (3) Auditory hallucinations: (4) Hallucinations, visual: (5) Delusions: (6) Paranoia: (7) Alcohol use disorder: Plan Is a 57-year-old white male with history of polysubstance abuse and known from previous inpatient stays presents again with active methamphetamine use and psy chotic symptoms including auditory and visual hallucinations along with paranoid delusions. 1. Continue current medication. Restarted 15 mg of Zyprexa p.o. nightly. Continue with Zyprexa titration. Increased to 7.5 mg p.o. every morning and 20 mg p.o. nightly. Increased the morning dose to 10 mg. Noteworthy that the patient has had success on Abilify as well and could consider long-acting injectable. However he reports that Abilify dampen the voices and did not make them go away. But he also acknowledges continued use of methamphetamine 2. Continue every 15 minute check for safety. 3. Encourage individual group and milieu therapy. 4. recommend sober living treatment at the highest level of care to which the patient is willing to commit. 5. 21-day hold hearing tomorrow at 3 PM. Involuntary Hold Information 96 Hour Hold: 96 Hour Involuntary Admission: Yes 96 Hour Hold Ending Date: 03/01/23 96 Hour Hold Ending Time: 00:01 Attestations NPU Medical Necessity Statement*: Inpatient hospitalization is medically necessary and the clinically appropriate intervention at this time. We will monitor medications and make changes as ind icated. The patient's likely length of stay is 4-6 days. 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
[2023-03-01] MEDS: trazodone 50 mg Tablet PO (20:12)
[2023-03-01] MEDS: OLANZapine 10 mg TABLET 20 MG PO (20:13)
[2023-03-01] MEDS: nicotine 4 mg lozenge MUCOUS MEM (20:13)
[2023-03-01 20:41] VITALS: BP 134/85; PULSE 86; RESP 18; TEMP 36.4; O2SAT 96
[2023-03-01] MEDS: hyDROXYzine 25 mg Capsule 50 MG PO (21:15)
[2023-03-02 06:00] VITALS: BP 112/66; PULSE 60; RESP 16; O2SAT 96
[2023-03-02] MEDS: thiamine 100 mg Tablet PO (09:03)
[2023-03-02] MEDS: multivitamin therapeutic Tablet 1 TAB PO (09:03)
[2023-03-02] MEDS: folic acid 1 mg Tablet PO (09:03)
[2023-03-02] MEDS: OLANZapine 5 mg TABLET 10 MG PO (09:03)
[2023-03-02] MEDS: nicotine 4 mg lozenge MUCOUS MEM ×2 (11:46→20:12)
[2023-03-02 14:00] VITALS: BP 133/79; PULSE 94; RESP 18; TEMP 36.3; O2SAT 95
[2023-03-02] MEDS: nicotine 2 mg Gum BUCCAL (17:00)
--- NOTE | 2023-03-02 17:55 | W.PM.NPUPNS ---
Subjective NPU Subjective: Patient presents today reporting that he is starting to feel better. With the department of gain clarity he identifies the need for greater sobriety. We discussed the 21-day hold hearing and that it put him on a continual and will use this time to get him connected with inpatient rehab and further stabilizing on the medication. Mental Status Exam MSE Comments: The patient is a well-nourished well-developed tall white male in hospital scrubs with slightly improving grooming and eye contact. No abnormal movements except for resolving mild psychomotor agitation. Mostly cooperative exam in mild distress. His speech was more spontaneous with more normal rate and volume. Mood described as getting better, affect less paranoid or overwhelmed. Thought process was more organized. Thought content: Patient denied suicidal or homicidal ideation, there are no delusions reported and he appears to have resolving paranoia, he reported great reduction in his auditory hallucinations and denied visual hallucinations. Attention and concentration are improving and memory was also improving, but none were formally tested. His insight was limited and improving. His judgment is improving. His impulse control appeared limited. Vitals/I&O/Wt Last Vital Signs Temp 97.8 F 03/02/23 21:11 Pulse 79 03/02/23 21:11 Resp 28 H 03/02/23 21:11 BP 119/70 03/02/23 21:11 Pulse Ox 95 03/02/23 14:00 O2 Del Method Room Air 03/02/23 14:00 Data NPU 02/22/23 19:28 02/22/23 19:28 A&P Assessment and plan (1) Acute psychosis: (2) Drug-induced psychotic disorder: (3) Auditory hallucinations: (4) Hallucinations, visual: (5) Delusions: (6) Paranoia: (7) Alcohol use disorder: Plan Is a 57-year-old white male with history of polysubstance abuse and known from previous inpatient stays presents again with active methamphetamine use and psychotic symptoms including auditory and visual hallucinations along with paranoid delusions. 1. Continue current medication. Restarted 15 mg of Zyprexa p.o. nightly. Continue with Zyprexa titration. Increased to 7.5 mg p.o. every morning and 20 mg p.o. nightly. Increased the morning dose to 10 mg. Noteworthy that the patient has had success on Abilify as well and could consider long-acting injectable. However he reports that Abilify dampen the voices and did not make them go away. But he also acknowledges continued use of methamphetamine 2. Continue every 15 minute check for safety. 3. Encourage individual group and milieu therapy. 4. recommend sober living treatment at the highest level of care to which the patient is willing to commit. 5. 21-day hold hearing today at 3 PM and patient placed on a 21-day hold. Involuntary Hold Information 96 Hour Hold: 96 Hour Involuntary Admission: Yes 96 Hour Hold Ending Date: 03/01/23 96 Hour Hold Ending Time: 00:01 Attestations NPU Medical Necessity Statement*: Inpatient hospitalization is medically necessary and the clinically appropriate intervention at this time. We will monitor medications and make changes as indicated. The patient's likely length of stay is 4-6 days. 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
[2023-03-02] MEDS: OLANZapine 10 mg TABLET 20 MG PO (20:10)
[2023-03-02] MEDS: trazodone 50 mg Tablet PO (20:11)
[2023-03-02] MEDS: hyDROXYzine 25 mg Capsule 50 MG PO (20:35)
[2023-03-02 21:11] VITALS: BP 119/70; PULSE 79; RESP 28; TEMP 36.6
[2023-03-02] MEDS: OLANZapine 5 mg ODT PO (22:33)
[2023-03-03 06:00] VITALS: BP 98/58; PULSE 68; RESP 16; TEMP 36.7; O2SAT 95
[2023-03-03] MEDS: thiamine 100 mg Tablet PO (08:48)
[2023-03-03] MEDS: OLANZapine 5 mg TABLET 10 MG PO (08:48)
[2023-03-03] MEDS: folic acid 1 mg Tablet PO (08:49)
[2023-03-03] MEDS: multivitamin therapeutic Tablet 1 TAB PO (08:49)
[2023-03-03] MEDS: nicotine 4 mg lozenge MUCOUS MEM ×3 (10:28→19:10)
[2023-03-03 14:00] VITALS: BP 125/78; PULSE 87; RESP 17; TEMP 36.4; O2SAT 96
--- NOTE | 2023-03-03 18:25 | P.NPUPN_ITS ---
Subjective NPU Subjective: Patient presents today reporting that he is feeling slightly better each day. He has continued to endorse a commitment to going to [facility]. Unfortunately they initially reported that they have a bed on March 08 now there is a baby as late as March 22. We discussed the possibilities in managing that reality. He reported willingness to do that we felt was right including staying till then, but we discussed considering other possibilities that could create the same final outcome which are probably limited. Mental Status Exam MSE Comments: The patient is a well-nourished well-developed tall white male in hospital scrubs with slightly improving grooming and eye contact. No abnormal movements except for resolving mild psychomotor agitation. Mostly cooperative exam in mild distress. His speech was more spontaneous with more normal rate and volume. Mood described as getting better, affect less paranoid or overwhelmed. Thought process was more organized. Thought content: Patient denied suicidal or homicidal ideation, there are no delusions reported and he appears to have resol ving paranoia and significant reduction in his hyperreligious thinking, he reported great reduction in his auditory hallucinations and denied visual hallucinations. Attention and concentration are improving and memory was also improving, but none were formally tested. His insight was limited and i mproving. His judgment is improving. His impulse control appeared limited. Vitals/I&O/Wt Last Vital Signs Temp 98.0 F 03/03/23 20:53 Pulse 85 03/03/23 20:53 Resp 18 03/03/23 20:53 BP 138/84 03/03/23 20:53 Pulse Ox 95 03/03/23 20:53 O2 Del Method Room Air 03/03/23 20:53 Data NPU 02/22/23 19:28 02/22/23 19:28 A&P Assessment and plan (1) Acute psychosis: (2) Drug-induced psychotic disorder: (3) Auditory hallucinations: (4) Hallucinations, visual: (5) Delusions: (6) Paranoia: (7) Alcohol use disorder: Plan Is a 57-year-old white male with history of polysubstance abuse and known from previous inpatient stays presents again with active methamphetamine use and psychotic symptoms including auditory and visual hallucinations along with paranoid delusions. 1. Continue current medication. Restarted 15 mg of Zyprexa p.o. nightly. Continue with Zyprexa titration. Increased to 7.5 mg p.o. every morning and 20 mg p.o. nightly. Increased the morning dose to 10 mg. Noteworthy that the patient has had success on Abilify as well and could consider long-acting injectable. However he reports that Abilify dampen the voices and did not make them go away. But he also acknowledges continued use of methamphetamine 2. Continue every 15 minute check for safety. 3. Encourage individual group and milieu therapy. 4. recommend sober living treatment at the highest level of care to which the patient is willing to commit. 5. 21-day hold hearing today at 3 PM and patient placed on a 21-day hold. Involuntary Hold Information 96 Hour Hold: 96 Hour Involuntary Admission: Yes 96 Hour Hold Ending Date: 03/01/23 96 Hour Hold Ending Time: 00:01 Attestations NPU Medical Necessity Statement*: Inpatient hospitalization is medically necessary and the clinically appropriate intervention at this time. We will monitor medications and make changes as indicated. The patient's likely length of stay is 4-6 days. On 21-day hold plan for rehab unclear best approach to getting him there safely outside of keeping him. 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
[2023-03-03] MEDS: trazodone 50 mg Tablet PO (20:23)
[2023-03-03] MEDS: OLANZapine 10 mg TABLET 20 MG PO (20:23)
[2023-03-03] MEDS: hyDROXYzine 25 mg Capsule 50 MG PO (20:23)
[2023-03-03 20:53] VITALS: BP 138/84; PULSE 85; RESP 18; TEMP 36.7; O2SAT 95
[2023-03-04 06:00] VITALS: RESP 16
[2023-03-04] MEDS: OLANZapine 5 mg TABLET 10 MG PO (09:28)
[2023-03-04] MEDS: folic acid 1 mg Tablet PO (09:29)
[2023-03-04] MEDS: thiamine 100 mg Tablet PO (09:29)
[2023-03-04] MEDS: multivitamin therapeutic Tablet 1 TAB PO (09:29)
[2023-03-04 14:00] VITALS: BP 123/72; PULSE 87; RESP 20; TEMP 36.4; O2SAT 97
[2023-03-04] MEDS: nicotine 4 mg lozenge MUCOUS MEM ×2 (16:55→19:26)
--- NOTE | 2023-03-04 17:08 | P.NPUPN_ITS ---
Subjective NPU Subjective: Patient admitted today seem to be clearer in general and much more insightful in the impact of his possible decisions. He reported that he did not find staying in the hospital and was appreciative of the plan by the treatment team to work with [facility] to get patient as an alternate that would be ready to come if anything falls through. Continued signs of improvement in psychosis. Mental Status Exam MSE Comments: The patient is a well-nourished well-developed tall white male in hospital scrubs with slightly improving grooming and eye contact. No abnormal movements except for resolving mild psychomotor agitation. Mostly cooperative exam in mild distress. His speech was more spontaneous with more normal rate and volume. Mood described as getting better, affect less paranoid or overwhelmed. Thought process was more organized. Thought content: Patient denied suicidal or homicidal ideation, there are no delusions reported and he appears to have resolving paranoia and significant reduction in his hyperreligious thinking, he reported great reduction in his auditory hallucinations and denied visual hallucinations. Attention and concentration are improving and memory was also improving, but none were formally tested. His insight was limited and improving. His judgment is improving. His impulse control appeared limited. Vitals/I&O/Wt Last Vital Signs Temp 97.6 F 03/04/23 22:00 Pulse 85 03/04/23 22:00 Resp 15 03/04/23 22:00 BP 136/82 03/04/23 22:00 Pulse Ox 97 03/04/23 22:00 O2 Del Method Room Air 03/04/23 22:00 Data NPU 02/22/23 19:28 02/22/23 19:28 A&P Assessment and plan (1) Acute psychosis: (2) Drug-induced psychotic disorder: (3) Auditory hallucinations: (4) Hallucinations, visual: (5) Delusions: (6) Paranoia: (7) Alcohol use disorder: Plan Is a 57-year-old white male with history of polysubstance abuse and known from previous inpatient stays presents again with active methamphetamine use and psychotic symptoms including auditory and visual hallucinations along with paranoid delusions. 1. Continue current medication. Restarted 15 mg of Zyprexa p.o. nightly. Continue with Zyprexa titration. Increased to 7.5 mg p.o. every morning and 20 mg p.o. nightly. Increased the morning dose to 10 mg. Noteworthy that the patient has had success on Abilify as well and could consider long-acting injectable. However he reports that Abilify dampen the voices and did not make them go away. But he also acknowledges continued use of methamphetamine 2. Continue every 15 minute check for safety. 3. Encourage individual group and milieu therapy. 4. recommend sober living treatment at the highest level of care to which the patient is willing to commit. 5. 21-day hold hearing today at 3 PM and patient placed on a 21-day hold. Involuntary Hold Information 96 Hour Hold: 96 Hour Involuntary Admission: Yes 96 Hour Hold Ending Date: 03/01/23 96 Hour Hold Ending Time: 00:01 Attestations NPU Medical Necessity Statement*: Inpatient hospitalization is medically necessary and the clinically appropriate intervention at this time. We will monitor medications and make changes as indicated. The patient's likely length of stay is 4-6 days. But amount of time here contingent upon rehab bed availability given his multiple stays with similar outcome from early discharge. Coding Level of Care Code Acute Code for [facility] Fwd Diagnoses Acute psychosis F23 Drug-induced psychotic disorder F19.959 Auditory hallucinations R44.0 Hallucinations, visual R44.1 Delusions F22 Paranoia F22 Alcohol use disorder F10.90
[2023-03-04] MEDS: hyDROXYzine 25 mg Capsule 50 MG PO (20:13)
[2023-03-04] MEDS: trazodone 50 mg Tablet PO (20:13)
[2023-03-04] MEDS: OLANZapine 10 mg TABLET 20 MG PO (20:14)
[2023-03-04 22:00] VITALS: BP 136/82; PULSE 85; RESP 15; TEMP 36.4; O2SAT 97
[2023-03-05 06:00] VITALS: BP 116/73; PULSE 65; RESP 16; O2SAT 97
[2023-03-05] MEDS: thiamine 100 mg Tablet PO (08:26)
[2023-03-05] MEDS: OLANZapine 5 mg TABLET 10 MG PO (08:26)
[2023-03-05] MEDS: folic acid 1 mg Tablet PO (08:26)
[2023-03-05] MEDS: multivitamin therapeutic Tablet 1 TAB PO (08:26)
--- NOTE | 2023-03-05 13:10 | W.PM.NPUPNS ---
Subjective NPU Subjective: Patient is in today reporting that he is excepting the situation. We are both hopeful that he will be able to [facility] on Wednesday but they are going to work to get him in as soon as is possible. He denies any side effects of medication and continues show some improvement. Mental Status Exam MSE Comments: The patient is a well-nourished well-developed tall white male in hospital scrubs with slightly improving grooming and eye contact. No abnormal movements except for resolving mild psychomotor agitation. Mostly cooperative exam in mild distress. His speech was more spontaneous with more normal rate and volume. Mood described as getting better, affect less paranoid or overwhelmed. Thought process was more organized. Thought content: Patient denied suicidal or homicidal ideation, there are no delusions reported and he appears to have resolving paranoia and significant reduction in his hyperreligious thinking, he reported great reduction in his auditory hallucinations and denied visual hallucinations. Attention and concentration are improving and memory was also improving, but none were formally tested. His insight was limited and improving. His judgment is improving. His impulse control appeared limited. Vitals/I&O/Wt Last Vital Signs Temp 97.6 F 03/04/23 22:00 Pulse 65 03/05/23 06:00 Resp 16 03/05/23 06:00 BP 116/73 03/05/23 06:00 Pulse Ox 97 03/05/23 06:00 O2 Del Method Room Air 03/05/23 06:00 Data NPU 02/22/23 19:28 02/22/23 19:28 Involuntary Hold Information 96 Hour Hold: 96 Hour Involuntary Admission: Yes 96 Hour Hold Ending Date: 03/01/23 96 Hour Hold Ending Time: 00:01 Attestations NPU Medical Necessity Statement*: Inpatient hospitalization is medically necessary and the clinically appropriate intervention at this time. We will monitor medications and make changes as indicated. The patient's likely length of stay is 3-5 days. But amount of time here contingent upon rehab bed availability given his multiple stays with similar outcome from early discharge. Coding Level of Care Code Acute Code for [facility]wd Diagnoses
[2023-03-05] MEDS: nicotine 4 mg lozenge MUCOUS MEM ×3 (13:45→19:03)
[2023-03-05 14:00] VITALS: BP 108/74; PULSE 93; RESP 16; TEMP 36.6; O2SAT 98
[2023-03-05] MEDS: OLANZapine 10 mg TABLET 20 MG PO (20:14)
[2023-03-05] MEDS: trazodone 50 mg Tablet PO (20:14)
[2023-03-05] MEDS: hyDROXYzine 25 mg Capsule 50 MG PO (20:18)
[2023-03-05 22:00] VITALS: BP 154/85; PULSE 92; RESP 18; TEMP 36.6; O2SAT 92
[2023-03-06 06:00] VITALS: BP 118/74; PULSE 66; RESP 16; TEMP 36.6; O2SAT 96
[2023-03-06] MEDS: OLANZapine 5 mg TABLET 10 MG PO (10:18)
[2023-03-06] MEDS: folic acid 1 mg Tablet PO (10:19)
[2023-03-06] MEDS: thiamine 100 mg Tablet PO (10:19)
[2023-03-06] MEDS: multivitamin therapeutic Tablet 1 TAB PO (10:19)
[2023-03-06] MEDS: nicotine 4 mg lozenge MUCOUS MEM ×4 (10:43→20:26)
[2023-03-06 13:50] VITALS: BP 130/83; PULSE 86; RESP 17; TEMP 36.6; O2SAT 98
--- NOTE | 2023-03-06 17:26 | P.NPUPN_ITS ---
Subjective NPU Subjective: the patient is a 57-year-old white male with a history of psychosis along with methamphetamine use currently on Zyprexa. The patient had acknowledged the use of methamphetamine and has to have contributed to his psychosis. He had expressed interest in consideration of treatment for methamphetamine abuse and a digital therapeutic application through [employer] was brought to his attention today. Patient had reported feeling optimistic about this potential option. He states that he was hopeful about entering into the [facility] for further treatment as he had expressed concern about going out and using if he were to go home. He had also reported significant history of alcohol abuse as well. He had less frequent auditory hallucinations when he took his Zyprexa per patient. Patient had been redirectable on the milieu with no side effects reported from the medications. Mental Status Exam MSE Comments: The patient is a well-nourished well-developed tall white male in hospital scrubs with slightly improving grooming and eye contact. No abnormal movements except for mild psychomotor activation. He was mostly cooperative exam in mild distress. His speech was more spontaneous with more normal rate and volume. Mood described as better. His affect was less paranoid or overwhelmed. Thought process was more organized with less thought blocking appreciated. Thought content: Patient denied suicidal or homicidal ideation, there are no delusions reported and no clear hyperreligiousity appreciated today. He reported great reduction in his auditory hallucinations and denied visual hallucinations. Attention and concentration are improving and memory was also improving, but none were formally tested. His insight was limited and improving. His judgment is improving. His impulse control appeared limited. Vitals/I&O/Wt Last Vital Signs Temp 97.9 F 03/06/23 13:50 Pulse 86 03/06/23 13:50 Resp 17 03/06/23 13:50 BP 130/83 03/06/23 13:50 Pulse Ox 98 03/06/23 13:50 O2 Del Method Room Air 03/06/23 06:00 Data NPU 02/22/23 19:28 02/22/23 19:28 A&P Assessment and plan (1) Acute psychosis: (2) Drug-induced psychotic disorder: (3) Auditory hallucinations: (4) Hallucinations, visual: (5) Delusions: (6) Paranoia: (7) Alcohol use disorder: Plan Is a 57-year-old white male with history of polysubstance abuse and known from previous inpatient stays presents again with active methamphetamine use and psychotic symptoms including auditory and visual hallucinations along with paranoid delusions. 1. Continue zyprexa 10mg in am, 20mg at night. Referral for [employer] Application for methamphetamine dependence-[employer]. Plan for transfer to inpatient at [facility] for substance abuse treatment. 2. Continue every 15 minute check for safety. 3. Encourage individual group and milieu therapy. 4. recommend sober living treatment at the highest level of care to which the patient is willing to commit. 5. 21-day hold hearing today at 3 PM and patient placed on a 21-day hold. Involuntary Hold Information 96 Hour Hold: 96 Hour Involuntary Admission: Yes 96 Hour Hold Ending Date: 03/01/23 96 Hour Hold Ending Time: 00:01 Attestations NPU Medical Necessity Statement*: Inpatient hospitalization is medically necessary and the clinically appropriate intervention at this time. We will monitor medications and make changes as indicated. The patient's likely length of stay is 3-5 days. But amount of time here contingent upon rehab bed availability given his multiple stays with similar outcome from early discharge. Coding Level of Care Code Acute Code for [facility] Fwd Diagnoses Acute psychosis F23 Drug-induced psychotic disorder F19.959 Auditory hallucinations R44.0 Hallucinations, visual R44.1 Delusions F22 Paranoia F22 Alcohol use disorder F10.90
[2023-03-06 19:52] VITALS: BP 110/64; PULSE 80; RESP 18; TEMP 37.1; O2SAT 96
[2023-03-06] MEDS: hyDROXYzine 25 mg Capsule 50 MG PO (20:22)
[2023-03-06] MEDS: OLANZapine 10 mg TABLET 20 MG PO (20:22)
[2023-03-06] MEDS: trazodone 50 mg Tablet PO ×2 (20:22→21:59)
[2023-03-07 06:00] VITALS: BP 109/69; PULSE 61; RESP 18; TEMP 36.4; O2SAT 95; BMI 28.5
[2023-03-07] MEDS: thiamine 100 mg Tablet PO (08:20)
[2023-03-07] MEDS: folic acid 1 mg Tablet PO (08:20)
[2023-03-07] MEDS: OLANZapine 5 mg TABLET 10 MG PO (08:20)
[2023-03-07] MEDS: multivitamin therapeutic Tablet 1 TAB PO (08:20)
[2023-03-07] MEDS: nicotine 4 mg lozenge MUCOUS MEM ×5 (10:46→22:00)
[2023-03-07 13:57] VITALS: BP 114/75; PULSE 91; RESP 16; TEMP 36.4; O2SAT 97
--- NOTE | 2023-03-07 16:23 | P.NPUPN_ITS ---
Subjective NPU Subjective: the patient is a 57-year-old white male with a history of psychosis along with methamphetamine use currently on Zyprexa. The patient endorsed that the hallucinations had been lessened as he stated that the voices were minimal. He had reported that he had been concerned about being homeless and stated that he had cravings for the use of methamphetamine. He had acknowledged a long history of ADHD and stated that he began using stimulants particularly cocaine several years ago in his 20s. He reported that he continued to have problems with understanding and managing reality but states that he was motivated to stop the use of methamphetamines. He had reported having difficulties with managing alcohol but states that it had been under better control recently. He had reported having less intense thoughts of hurting himself. He reported improved sleep on the Zyprexa. Mental Status Exam MSE Comments: The patient is a well-nourished well-developed tall white male in hospital scrubs with slightly improving grooming and eye contact. No abnormal movements except for mild psychomotor activation. He was mostly cooperative exam in mild distress. His speech was more spontaneous with more normal rate and volume. Mood described as stressed. His affect was mood congruent and anxious today. Thought process was more organized with no thought blocking appreciated. Thought content: Patient denied suicidal or homicidal ideation, there are no delusions reported and no clear hyperreligiousity appreciated today. He reported great reduction in his auditory hallucinations and denied visual hallucinations. He did not appear to be responding to internal stimuli. Attention and concentration are improving and memory was also improving, but none were formally tested. His insight was limited and improving. His judgment is improving. His impulse control appeared limited. Vitals/I&O/Wt Last Vital Signs Temp 97.5 F L 03/07/23 13:57 Pulse 91 03/07/23 13:57 Resp 16 03/07/23 13:57 BP 114/75 03/07/23 13:57 Pulse Ox 97 03/07/23 13:57 O2 Del Method Room Air 03/06/23 06:00 Weight last 48 hrs Weight 97.976 kg Data NPU 02/22/23 19:28 02/22/23 19:28 A&P Assessment and plan (1) Acute psychosis: (2) Drug-induced psychotic disorder: (3) Auditory hallucinations: (4) Hallucinations, visual: (5) Delusions: (6) Paranoia: (7) Alcohol use disorder: Plan Is a 57-year-old white male with history of polysubstance abuse and known from previous inpatient stays presents again with active methamphetamine use and psychotic symptoms including auditory and visual hallucinations along with paranoid delusions. 1. Continue zyprexa 10mg in am, 20mg at night. Referral for Digital Therapeutic Application for methamphetamine dependence-[employer]. Plan for transfer to inpatient at [facility] for substance abuse treatment. 2. Continue every 15 minute check for safety. 3. Encourage individual group and milieu therapy. 4. recommend sober living treatment at the highest level of care to which the patient is willing to commit. 5. Continue zyprexa 30mg/day Involuntary Hold Information 96 Hour Hold: 96 Hour Involuntary Admission: Yes 96 Hour Hold Ending Date: 03/01/23 96 Hour Hold Ending Time: 00:01 Attestations NPU Medical Necessity Statement*: Inpatient hospitalization is medically necessary and the clinically appropriate intervention at this time. We will monitor medications and make changes as indicated. The patient's likely length of stay is 3-5 days. But amount of time here contingent upon rehab bed availability given his multiple stays with similar outcome from early discharge. Coding Level of Care Code Acute Code for [facility] Fwd Diagnoses Acute psychosis F23 Drug-induced psychotic disorder F19.959 Auditory hallucinations R44.0 Hallucinations, visual R44.1 Delusions F22 Paranoia F22 Alcohol use disorder F10.90
[2023-03-07] MEDS: hyDROXYzine 25 mg Capsule 50 MG PO (20:05)
[2023-03-07] MEDS: OLANZapine 10 mg TABLET 20 MG PO (20:05)
[2023-03-07] MEDS: trazodone 50 mg Tablet PO ×2 (20:05→22:00)
[2023-03-07] MEDS: OLANZapine 5 mg ODT PO (20:21)
[2023-03-07 20:37] VITALS: BP 117/75; PULSE 84; RESP 18; TEMP 36.7; O2SAT 97
[2023-03-08 06:00] VITALS: BP 111/71; PULSE 61; RESP 16; O2SAT 100
[2023-03-08] MEDS: thiamine 100 mg Tablet PO (08:07)
[2023-03-08] MEDS: multivitamin therapeutic Tablet 1 TAB PO (08:07)
[2023-03-08] MEDS: folic acid 1 mg Tablet PO (08:07)
[2023-03-08] MEDS: OLANZapine 5 mg TABLET 10 MG PO (08:07)
[2023-03-08 10:29] VITALS: BP 111/71; PULSE 61; RESP 16; O2SAT 100
--- NOTE | 2023-03-08 10:32 | DCPLANNER ---
IMM completed with pt on 03/08/23 @ 1933am. Pt was given a copy of rights and he stated he understood his rights.
[2023-03-08] MEDS: nicotine 4 mg lozenge MUCOUS MEM (10:40)
--- NOTE | 2023-03-08 10:46 | PC.NURSE ---
written discharge instruction discussed and left with patient, all questions answered to patients satisfaction. pt will be leaving to go to [facility] the facility called an stated that they will be here around 1200noon to pick him up.
--- NOTE | 2023-03-08 13:40 | P.NPUDS_ITS ---
Diagnoses at Discharge Discharge Diagnosis (1) Acute psychosis: Status: Acute (2) Drug-induced psychotic disorder: Status: Acute (3) Auditory hallucinations: Status: Acute (4) Hallucinations, visual: Status: Acute (5) Delusions: Status: Acute (6) Paranoia: Status: Acute (7) Alcohol use disorder: Status: Acute Reason for Visit Reason for Visit: si Brief History: History of Present Illness Otilio Carpio is a 57 year old male who presented to the emergency department with the following report: Chief Complaint: Psychiatric Symptoms Stated Complaint: si Time Seen by Provider: 02/22/23 19:15 History of Present Illness:?? Mr Carpio is a 57-year-old gentleman with history of depression and substance abuse presenting to the emergency department for depression with suicidal ideation.? He reports voices that are telling him to kill himself.? He essentially reports not remembering the past week possibly due to substance abuse though is somewhat vague.? Denies physical injury or actual suicide attempt.? No other specific changes in health, exacerbating, or alleviating factors identified. Patient was admitted to the neuropsychiatric unit for definitive treatment of those issues.? He presents today very isolative and sleeping most of the time.? Multiple attempts were made to engage him prior to the opportunity for a brief encounter.? He was very abrupt and had very negative aggressive posturing.? 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 He once again presents with positive UDS for methamphetamine but having psychosis and feeling irritable that anyone would challenge the veracity of his psychosis.? Much of the challenging is essentially asking reasonable questions about the things he reports that any follow-up questions about the psychotic symptoms are seen by him as questioning what he is saying likely an off shoot of his paranoia.? He was limited in his ability to talk about psychosocial conditions including his living conditions etc.? So an excerpt of his last hospitalization which was about 3 and half months ago is included below for additional information.? He was reporting taking Zyprexa now and we talked about increasing that dose and we could determine what the initial dose was because he did not know or did not recall. Per his 11/09/2022 [facility] inpatient psychiatric discharge summary: Discharge Diagnosis (1) Acute psychosis: ? ? ? Status: Acute (2) Drug-induced psychotic disorder: ? ? ? Status: Acute (3) Auditory hallucinations: ? ? ? Status: Acute (4) Hallucinations, visual: ? ? ? Status: Acute (5) Delusions: ? ? ? Status: Acute (6) Paranoia: ? ? ? Status: Acute (7) Alcohol use disorder: ? ? ? Status: Acute Reason for Visit Reason for Visit:?? PSYCH EVAL? Brief History: History of Present Illness Otilio Carpio is a 57 year old male who presented to the emergency department with the following report: Chief Complaint: Psychiatric Symptoms Stated Complaint: PSYCH EVAL Time Seen by Provider: 10/31/22 13:47 History of Present Illness:?? Mr Carpio is a 57-year-old gentleman presenting to the emergency department for psychiatric concerns.? He reports some bit of time of having, what I suspect are, auditory and visual hallucinations and paranoia.? He reports longstanding history of being spiritual and his third eye in his pineal gland being open however is very vague as far as previous psychiatric diagnoses.? He reports since he moved to [place] he was initially out of [facility] and living with his mother.? He noted seeing people and hearing words in the events.? He also endorses people watching him and spying on him and trying to blackmail him.? He is unsure of exactly how this happens though thinks it is through perhaps cameras in the events of smoke detectors.? He thinks that there are drones that are flying around him lately.? He does endorse a history of tobacco use.? He endorses a history of drinking denies daily alcohol use and denies history of DT/alcohol withdrawal seizure.? He denies recent other substance abuse.? Intensity symptoms is moderate to severe.? The patient is afraid that somebody is going to check into the hospital hiding a gun up is as to blow my brains out .? No other specific changes in health, exacerbating, or alleviating factors identified. He was admitted to the neuropsychiatric unit for definitive treatment of those issues.? He was a very resistant historian with very few answers to questions posed to him.? And most of those answers were enmeshed in a very serious likely paranoid delusional network.? He just kept repeating that they are out to get me and I am not safe anywhere. ? Any question was perceived as a lack of belief of his report that he was being followed and these people were appearing everywhere.? Additionally challenging the situation was a clear hypersomnolence likely connected to a crash from methamphetamine.? He had refused thus far to give a urine sample so there was a BAL of but his UDS was not obtained as of this interview and bringing up his history of drugs led to him saying that he was not being believed in him essentially ending the interview.? An excerpt of his evaluation/discharge summary from last month is included below for historical context. Per his 09/10/2022 [facility] inpatient psychiatric discharge summary: PSYCH EVAL? Brief History: Otilio Carpio is a 57 year old male who was admitted to the neuropsychiatric unit after presenting to the emergency room complaining of seeing and hearing things in his living situation at the [facility].? He reports that he had used methamphetamine approximately 3 days ago.? He reports that he has been hearing voices in the ducts of the air vents stating that I am going to kill you .? He reports that he has never had any experience like this and states that there have been cameras placed in his mothers room and there that has been observing what she has been doing and has been gathering secret and personal information on the patient as well.? He denies any suicidal ideation and stated that he simply needed to get out of the situation.? He states he has been in this [facility] facility with his mother for the past 45 days.? Prior to that mother had been there for at least a year.? He has reported a history of alcohol use but also reports a history of stimulant abuse reporting recent methamphetamine abuse for several years and states most recent use 3 days ago with alcohol as well.? He denies any current depression but reports being anxious and frustrated as he reports that the nursing facility at the [facility] needs to be examined for their fraud and there invasion of privacy.? The patient reports that he had been in [facility] 3 years prior to being released and he is on parole. Inpatient psychiatric history: He had reported previous inpatient treatments in [place] for depression in the past although he did not elaborate. Outpatient psychiatric history: He reports none currently. Drug and alcohol history: He had reported a history of polysubstance abuse including cocaine alcohol and currently methamphetamine. Current medications: None Allergies: Penicillin Medical history: None Surgical history: None Legal history: He reports multiple [facility] stints, most recently 6 weeks ago. Social history: The patient reports that he had been residing in an assisted living facility with his elderly mother age 81 who has multiple medical problems.? He reports having just been released from [facility].? He reports having several children and states that he had been previously 1 time but is .? He states he was born in [place] and had earned a degree in engineering having graduated from [employer].? He reports a history of legal problems involved in producing and delivering illicit substances. Family psychiatric history: None reported ? Hospital Course He slowly acclimated to the individual, group and milieu therapies provided.? He presented frankly psychotic with significant paranoia that he is being chased by imaginary people.? He initially was refusing medication but ultimately let us restart his Abilify with very positive effects.? His paranoia started to subside and eventually he was able to begin to question whether the paranoia was authentic or represented a sequela of his drug use.? He continues to be resistant to inpatient treatment but did accept referrals to outpatient services.? Not having success with low-dose Zoloft.? Ultimately he was continuum propranolol and Abilify increased to 20 mg p.o. nightly.? He had significant improvement during the stay and worked with the social work team to get connected with outpatient resources. He was able to contract for safety, outside of the hospital prior to discharge.? During the hospitalization he had routine laboratory studies which were within normal limits except for few outliers.? Additionally had a general medical evaluation which was also within normal limits and revealed no new acute processes. Hospital Course Hospital Course During the hospitalization, patient had routine laboratory studies which were within normal limits except for few outliers.? Additionally there was a general medical evaluation which was also within normal limits and revealed no new acute processes. At the time of discharge, lethality was denied and psychosis was resolving.? Mood and anxiety were well managed.? Patient endorsed a plan to avoid all drugs of abuse and follow-up with the aftercare recommendations of the treatment team.? Patient was evaluated and deemed to be absent credible lethality, and had achieved the maximum benefit from an inpatient hospitalization, so was discharged. The patient's psychosis secondary to methamphetamine use improved greatly with the titration of Zyprexa up to 30 mg upon discharge. The patient had expressed great concern over potentially using methamphetamine again and it was deemed necessary that the patient remain in the hospital until the patient could be transferred directly to a substance abuse facility which is where he was sent on the date of discharge to [facility] for further inpatient substance abuse treatment. ? Involuntary Hold Information 96 Hour Hold: 96 Hour Involuntary Admission: Yes 96 Hour Hold Ending Date: 03/01/23 96 Hour Hold Ending Time: 00:01 Mental Status Exam MSE Comments: The patient is a well-nourished well-developed tall white male in hospital scrubs with improved grooming and eye contact. No abnormal movements except for mild psychomotor activation. He was mostly cooperative exam in mild distress. His speech was more spontaneous with more normal rate and volume. Mood described as better. His affect was mood congruent and brighter. Thought process was more organized with no thought blocking appreciated. Thought content: Patient denied suicidal or homicidal ideation. There was no evidence of delusional thinking. He did not appear to be responding to internal stimuli. Attention and concentration are improving and memory was also improving, but none were formally tested. His insight was improving. His judgment is improving. His impulse control appeared improved on discharge. Discharge Data Studies Completed and Pending: Laboratory Results WBC 10.6 10^3/uL (4.0 -10.0) H 02/22/23 19: RBC 4.77 10^6/uL (4.1 -5.3) 02/22/23 19: Hgb 14.0 g/dL (11.7-1 6.6) 02/22/23 19: Hct 42.6 % (42.0-52.0 ) 02/22/23 19: MCV 89.3 fl (80-94) 02/22/23 19: MCH 29.4 pg (28.0-34. 0) 02/22/23 19: MCHC 32.9 g/dL (30.0-3 6.0) 02/22/23: RDW 13.7 % (12.1-15.1 ) 02/22/23: Plt Count 351 10^3/cmm (130 -400) 02/22/23: MPV 9.8 fL (7.4-10.4) 02/22/23: Neut % (Auto) 64.6 % 02/22/23: Lymph % (Auto) 19.8 % 02/22/23: Kerr % (Auto) 10.8 % 02/22/23: Eos % (Auto) 3.1 % 02/22/23: Baso % (Auto) 0.9 % 02/22/23 Neut # (Auto) 6.85 10^3/uL (1.8 -7.7) 02/22/23 Lymph # (Auto) 2.1 10^3/uL (0.8- 4.8) 02/22/23 Kerr # (Auto) 1.2 10^3/uL (0.2- 0.9) H 02/22/23: Eos # (Auto) 0.3 10^3/uL (0.0- 0.8) 02/22/23 Baso # (Auto) 0.1 10^3/uL (0.0- 0.1) 02/22/23 Nucleated RBC % (a uto) 0 % 02/22/23 Nucleated RBCs # 0.0 /100WBC 02/22/23 Sodium 137 mmol/L (136-1 45) 02/22/23: Potassium 3.3 mmol/L (3.5-5 .1) L 02/22/23 Chloride 102 mmol/L (98-10 7) 02/22/23 Carbon Dioxide 24 mmol/L (22-29) 02/22/23: Anion Gap 14.3 (5-19) 02/22/23 BUN 10 mg/dL (6-20) 02/22/23: Creatinine 0.7 mg/dL (0.7-1. 2) 06/19/23 19:28 GFR Calculation 116.7 mL/min (90- 130) 02/22/23 19: Glucose 117 mg/dL (65-115 ) H 02/22/23 19: Calculated Osmolal ity 284 mOsm/kg (285- 295) L 02/22/23 19: Calcium 8.8 mg/dL (8.5-10 .5) 02/22/23 19: Total Bilirubin 0.6 mg/dL (0.15-1 .2) 02/22/23 19: AST 23 U/L (0-40) 02/22/23 19: ALT 48 U/L (0-41) H 02/22/23 19: Alkaline Phosphata se 118 U/L (40-130) 02/22/23: Total Protein 7.3 g/dL (6.6-8.7 ) 02/22/23 19: Albumin 4.0 g/dL (3.5-5.2 ) 02/22/23: Globulin 3.3 g/dL (1.3-4.6 ) 02/22/23 19: Salicylates 0.7 mg/dL (3-10) L 02/22/23 19:28 Urine Opiates Scre en Negative ng/mL (N egative) 02/22/23 20:03 Acetaminophen < 5.0 ug/mL (10-3 0) L 02/22/23 19:28 Ur Barbiturates Sc reen Negative ng/mL (N egative) 02/22/23 20:03 Ur Phencyclidine S crn Negative ng/mL (N egative) 02/22/23 20:03 Ur Amphetamines Sc reen Positive ng/mL (N egative) H 02/22/23 20:03 U Benzodiazepines Scrn Negative ng/mL (N egative) 02/22/23 20:03 Urine Cocaine Scre en Negative ng/mL (N egative) 02/22/23 20:03 U Marijuana (THC) Screen Negative ng/mL (N egative) 02/22/23 20:03 Ethyl Alcohol 69 mg/dL (0-10) H 02/22/23 19:28 Vitals: Last Vital Signs Temp 98.0 F 03/07/23 20:37 Pulse 61 03/08/23 10:29 Resp 16 03/08/23 10:29 BP 111/71 03/08/23 10:29 Pulse Ox 100 03/08/23 10:29 O2 Del Method Room Air 03/08/23 06:00 Discharge Plan Discharge Patient Disposition: Home Condition: Stable Prescriptions: New olanzapine 10 mg Tablet 20 mg PO BEDTIME Qty: 30 1RF olanzapine 10 mg tablet 10 mg PO QAM Qty: 30 1RF Discharge Orders: Discharge Order (Routine); Ordered 03/08/23 Ordered By: Hammad Woods Referrals: [facility] [Outside] - 4-7 days [facility] [Outside] - 03/08/23 Discharge Diet: Usual diet Discharge Activity: Resume usual activity Patient Instructions: Depression (DC), Suicide Prevention (DC), Opioid Safety Discharge Attestations NPU Time Spent in Discharge Care*: less than 30 min Coding Level of Care Code Acute Chg FW DC note Diagnoses Acute psychosis F23 Drug-induced psychotic disorder F19.959 Auditory hallucinations R44.0 Hallucinations, visual R44.1 Delusions F22 Paranoia F22 Alcohol use disorder F10.90
== END 2023-03-08 12:13 | disposition home or self-care (01) | DRG 897 ==
LOC: ER 20:36 → NP 20:57
PROVIDERS: Emergency Medicine; Admitting Provider Psychiatry & Neurology Psychiatry; Emergency Provider Emergency Medicine; Visit Provider Psychiatry & Neurology Psychiatry
DX: F15.151 Other stimulant abuse with stimulant-induced psychotic disorder with hallucinations (principal); R45.851 Suicidal ideations; F32.A Depression, unspecified; F17.200 Nicotine dependence, unspecified, uncomplicated; F10.10 Alcohol abuse, uncomplicated; F22 Delusional disorders
CPT/HCPCS: 36415; 80053; 80306; 80307; 85025; 97150; 97165; 99238; 99285

== ENCOUNTER 2023-05-06 19:51 | Inpatient (IN) | payer MEDICARE, MEDICAID, SELFPAY ==
[2023-05-06 20:05] VITALS: BP 135/78; PULSE 92; RESP 18; TEMP 36.6; O2SAT 96; BMI 27.7
--- NOTE | 2023-05-06 20:52 | W.ED.PSYCHS ---
HPI - Psych General: Chief Complaint: Psychiatric Symptoms Stated Complaint: Psych Time Seen by Provider: 05/06/23 20:08 History of Present Illness: Patient presents to the ER with complaints of not taking his medicine for quite a while and now he is hearing voices and these are bad voices telling him to do bad things. He is afraid he might do. He will not elicit an elaborate what are telling him to do. He says he has heard these voices before and has had been admitted to our stress unit here before he said the last time may have been a couple months ago. Review of Systems General: Reports: 10 or more systems reviewed and unremarkable except in HPI and below PFSH ED PFSH: Medical History Methamphetamine use disorder, mild Nicotine use disorder No significant past medical history On combination antipsychotic drug therapy Psychiatric care Surgical History No significant past surgical history Social History Smoking and tobacco status: current every day smoker Substance/Drug Use: current Physical Exam Const: COMMON NORMALS: no acute distress, average body habitus, patient oriented x3, no limitations, healthy appearing, alert and well nourished HENMT: COMMON NORMALS: normocephalic, atraumatic, hearing grossly normal bilaterally, external ears normal, Normal external nose present and moist oral mucous membranes HEAD & SCALP: normocephalic and atraumatic NOSE: Normal external nose present EXTERNAL EAR: Yes external ears normal Eye: COMMON NORMALS: Equal, round and reactive pupils present, EOMs intact bilaterally, conjunctivae normal and no scleral icterus CONJUNCTIVA: Yes conjunctivae normal PUPIL: Yes Equal, round and reactive pupils present Neck/C-Spine: COMMON NORMALS: full ROM, no lymphadenopathy, supple, no meningeal signs, no JVD and Thyroid normal THYROID: Thyroid normal Lymph: LYMPHATIC: no lymphadenopathy noted Chest: COMMONS NORMALS: normal inspection of the chest and normal palpation of entire chest wall Resp: COMMON NORMALS: normal respiratory effort, No retractions, No use of accessory muscles and clear to auscultation bilaterally AUSCULTATION: clear to auscultation bilaterally Cardio: COMMON NORMALS: no JVD, regular rate, regular rhythm, S1 normal heart sound present, S2 normal heart sound present, No gallops present (Cardio), No clicks present (Cardio) and No murmurs present (Cardio) RATE: regular rate RHYTHM: regular rhythm HEART SOUNDS: S1 normal heart sound present and S2 normal heart sound present GI: COMMON NORMALS: Normal to inspection, nondistended, normoactive bowel sounds present, Soft to palpation, non-tender, No hepatosplenomegaly present and no masses PALPATION: Yes Soft to palpation and Yes No hepatosplenomegaly present : COMMON NORMALS: Yes no CVA tenderness BLADDER/KIDNEY EXAM: Yes no CVA tenderness Back/Pelvis: COMMON NORMALS: no CVA tenderness Neuro: COMMON NORMALS: patient oriented x3 SENSORIUM/ORIENTATION: Yes alert MENINGEAL SIGNS: Yes no meningeal signs Course Vital Signs: Vital signs: Vital Signs Temperature 97.8 F 05/06/23 20:05 Pulse Rate 92 05/06/23 20:05 Respiratory Rate 18 05/06/23 20:05 Blood Pressure 135/78 05/06/23 20:05 Pulse Oximetry 96 05/06/23 20:05 [facility] - Psych Medical Decision Making Patient presents to the ER with complaints of auditory and visual hallucinations and being off of his medicine for some time. Patient says he needs to be admitted to the stress unit because he is afraid he will follow what these voices tell him to do. Physical exam was performed normal psychiatric work-up was obtained. Dr. Mcgee was consulted who agreed to take the patient for further evaluation and treatment. Patient will be held in the ER until we have lab work back. Differential Diagnosis Likely suicidal ideation; Unlikely acute psychosis, chronic schizophrenia, bipolar disorder, depression, drug-induced psychotic disorder or acute anxiety Medical Records I reviewed the patient's medical records. Lab Data I reviewed the patient's lab results. Discharge Plan Discharge Patient Disposition: Admitted As Inpatient Clinical Impression: Acute psychosis Condition: Stable Coding Level of Care Code ED International Sales Manager for Humaira Gomez
[2023-05-06 21:26] LABS: Basophils # 0.1 10^3/uL (0.0-0.1); Basophils % 1.3 %; Eosinophils # 0.2 10^3/uL (0.0-0.8); Eosinophils % 2.5 %; Hematocrit 44.5 % (37-53); Lymphocytes # 2.2 10^3/uL (0.8-4.8); Lymphocytes % 28.5 %; Mean Corpuscular Hemoglobin 29.7 pg (27-33); Mean Corpuscular Volume 89.9 fl (82-101); Mean Platelet Volume 10.1 fL (7.4-10.4); Monocytes % 13.2 %; Neutrophils # 4.18 10^3/uL (1.8-7.7); Nucleated Red Blood Cells % 0 %; Platelet Count 243 10^3/cmm (157-399); Red Blood Count 4.95 10^6/uL (3.85-5.65); Red Cell Distribution Width 13.5 % (12.1-15.1); White Blood Count 7.73 10^3/uL (3.29-11.43)
[2023-05-06 21:48] LABS: Alanine Aminotransferase 14 U/L (0-41); Albumin Level 3.9 g/dL (3.5-5.2); Alcohol Level 49 mg/dL (0-10); Alkaline Phosphatase 81 U/L (40-130); Aspartate Amino Transferase 21 U/L (0-40); Blood Urea Nitrogen 12 mg/dL (6-20); Calcium 8.9 mg/dL (8.5-10.5); Carbon Dioxide 26 mmol/L (22-29); Chloride 104 mmol/L (98-107); Globulin 2.8 g/dL (1.3-4.6); Glomerular Filtration Rate 116.7 mL/min (90-130); Glucose 124 mg/dL (65-115); Osmolality Calculated 293 mOsm/kg (285-295); Sodium 141 mmol/L (136-145); Total Bilirubin 0.2 mg/dL (0.15-1.2); Total Protein 6.7 g/dL (6.6-8.7)
[2023-05-06 21:49] LABS: Acetaminophen < 5.0 ug/mL (10-30); Salicylate < 0.3 mg/dL (3-10)
[2023-05-06 21:50] LABS: Anion Gap 15.1 (5-19); Potassium 4.1 mmol/L (3.5-5.1)
[2023-05-06 22:16] LABS: Add Urine Microscopic? NO; Charge for UA Resulting for Rev
[2023-05-06 22:22] LABS: Bilirubin Urine Neg (Negative); Blood Urine Neg (Negative); Glucose Urine UA Norm (Normal); Ketones Urine Negative (Negative); Leukocyte Esterase Urine Negative (Negative); Nitrate Urine Negative (Negative); Protein Urine Neg (Negative); Urine Appearance Clear (CLEAR); Urine Color Yellow (Yellow); Urobilinogen Urine Norm (Negative); pH Urine 6 (5-7)
[2023-05-06 22:25] LABS: Amphetamines Screen Urine Positive (Negative); Barbiturates Screen Urine Negative (Negative); Benzodiazepines Screen Urine Negative (Negative); Cocaine Screen Urine Negative (Negative); Opiate Screen Urine Negative (Negative); PCP Screen Urine Negative (Negative); THC Screen Urine Negative (Negative)
--- NOTE | 2023-05-06 22:55 | PC.NURSE ---
Report called to Laura in NPU
[2023-05-07] MEDS: multivitamin therapeutic Tablet 1 TAB PO (08:32)
[2023-05-07] MEDS: folic acid 1 mg Tablet PO (08:32)
[2023-05-07] MEDS: thiamine 100 mg Tablet PO (08:32)
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
[2023-05-07 14:00] VITALS: BP 117/73; PULSE 82; RESP 16; TEMP 36.5; O2SAT 96
[2023-05-07] MEDS: propranolol 20 mg Tablet PO (17:16)
[2023-05-07] MEDS: OLANZapine 10 mg TABLET 20 MG PO (20:28)
[2023-05-07] MEDS: nicotine 4 mg lozenge MUCOUS MEM (20:29)
[2023-05-07 20:45] VITALS: BP 138/72; PULSE 74; RESP 17; TEMP 36.7; O2SAT 98
--- NOTE | 2023-05-08 06:26 | PC.NURSE ---
pt resting resp 18
[2023-05-08] MEDS: propranolol 20 mg Tablet PO ×2 (09:37→17:58)
[2023-05-08] MEDS: multivitamin therapeutic Tablet 1 TAB PO (09:37)
[2023-05-08] MEDS: thiamine 100 mg Tablet PO (09:37)
[2023-05-08] MEDS: folic acid 1 mg Tablet PO (09:38)
--- NOTE | 2023-05-08 13:41 | W.PM.NPUPNS ---
Subjective NPU Subjective: The patient is a 57-year-old white male with a history of psychosis along with methamphetamine and alcohol use admitted with depression and suicidal ideation with command auditory hallucinations. The patient had continue to report depressed mood along with fleeting suicidal thoughts. He had reported feeling more hopeless recently. He had reported some cravings for methamphetamine and stated that his energy remained low. He had isolated himself on the milieu with the patient staying in his room most of the afternoon. Patient had stated that he would like to consider an antidepressant for his depression. Mental Status Exam MSE Comments: The patient is a well-nourished well-developed tall white male in hospital scrubs with poor grooming and intermittent eye contact. No abnormal movements other than moderate psychomotor retardation. He was cooperative with the exam and appeared in m mild distress. His speech showed evidence of increased latency in speech with normal volume. Mood described as depressed, His affect was restricted in range today.. Thought process was linear. Thought content: Patient endorsed suicidal ideation with no homicidal ideation. He did appear at times to be responding to internal stimuli. Recent and remote memory were grossly intact today. His insight was poor. His judgment is impaired. His impulse control appeared poor as well. General theme of hopelessness was evinced throughout interview. Vitals/I&O/Wt Last Vital Signs Temp 98.0 F 05/07/23 20:45 Pulse 74 05/07/23 20:45 Resp 17 05/07/23 20:45 BP 138/72 05/07/23 20:45 Pulse Ox 98 05/07/23 20:45 O2 Del Method Room Air 05/07/23 20:45 Weight last 48 hrs Weight 95.254 kg Data NPU 05/06/23 21:09 05/06/23 21:09 A&P Assessment and plan (1) Acute psychosis: (2) Drug-induced psychotic disorder: (3) Auditory hallucinations: (4) Hallucinations, visual: (5) Delusions: (6) Paranoia: (7) Alcohol use disorder: (8) Depression: Plan Is a 57-year-old white male with history of polysubstance abuse and psychosis and known from previous inpatient stays presents again with active methamphetamine use and psychotic symptoms including auditory hallucinations along with severe depression. 1. Continue Zyprexa 20mg at night and propranolol and will add Prozac 20 mg daily to target depression. 2. Continue every 15 minute check for safety. 3. Encourage individual group and milieu therapy. 4. recommend sober living treatment at the highest level of care to which the patient is willing to commit. Involuntary Hold Information 96 Hour Hold: 96 Hour Involuntary Admission: No 96 Hour Hold Ending Date: 03/01/23 96 Hour Hold Ending Time: 00:01 Attestations NPU Medical Necessity Statement*: Inpatient hospitalization is medically necessary and deemed to ?be ?the clinically appropriate intervention ?at this time.? We will monitor/initiate medications and make changes as indicated.? The patient?s likely length of stay 5-7 days. Coding Level of Care Code Acute Code for [facility] Fwd Diagnoses Acute psychosis F23 Drug-induced psychotic disorder F19.959 Auditory hallucinations R44.0 Hallucinations, visual R44.1 Delusions F22 Paranoia F22 Alcohol use disorder F10.90 Depression F32.A
[2023-05-08 14:00] VITALS: BP 119/72; PULSE 72; RESP 18; TEMP 36.8; O2SAT 95
[2023-05-08] MEDS: fluoxetine 20 mg Capsule PO (14:35)
[2023-05-08 21:23] VITALS: BP 133/79; PULSE 71; RESP 16; O2SAT 96
[2023-05-08] MEDS: trazodone 50 mg Tablet PO (21:30)
[2023-05-08] MEDS: OLANZapine 10 mg TABLET 20 MG PO (21:56)
[2023-05-09 06:00] VITALS: BP 132/84; PULSE 64; RESP 16; O2SAT 96; BMI 29.1
[2023-05-09] MEDS: thiamine 100 mg Tablet PO (09:25)
[2023-05-09] MEDS: folic acid 1 mg Tablet PO (09:25)
[2023-05-09] MEDS: fluoxetine 20 mg Capsule PO (09:25)
[2023-05-09] MEDS: multivitamin therapeutic Tablet 1 TAB PO (09:25)
[2023-05-09] MEDS: propranolol 20 mg Tablet PO ×2 (09:26→17:01)
--- NOTE | 2023-05-09 12:37 | W.PM.NPUPNS ---
Subjective NPU Subjective: The patient is a 57-year-old white male with a history of psychosis along with methamphetamine and alcohol use admitted with depression and suicidal ideation with command auditory hallucinations. The patient continued to appear isolative on the milieu as she had not left his bedroom other than to eat. He had reported that he continued to remain depressed and reported continued presence of hallucinations. He had reported having continued suicidal thoughts stating that the voices were telling him to hurt himself. Mental Status Exam MSE Comments: The patient is a well-nourished well-developed tall white male in hospital scrubs with poor grooming and poor eye contact. There is continued evidence of psychomotor retardation. There was no evidence of any abnormal involuntary motor movements tics or tremors. He was minimally cooperative with the exam and appeared in no acute distress. His speech showed evidence of increased latency in speech with normal volume. Mood reported as depressed, His affect was flat. Thought process was linear but superficial.. Thought content: Patient endorsed suicidal ideation with no homicidal ideation. He did appear at times to be responding to internal stimuli. Recent and remote memory were grossly intact today. His insight was poor. His judgment is impaired. His impulse control appeared to be improving. Vitals/I&O/Wt Last Vital Signs Temp 98.3 F 05/08/23 14:00 Pulse 64 05/09/23 06:00 Resp 16 05/09/23 06:00 BP 132/84 05/09/23 06:00 Pulse Ox 96 05/09/23 06:00 O2 Del Method Room Air 05/07/23 20:45 Weight last 48 hrs Weight 100.244 kg Data NPU 05/06/23 21:09 05/06/23 21:09 A&P Assessment and plan (1) Acute psychosis: (2) Drug-induced psychotic disorder: (3) Auditory hallucinations: (4) Hallucinations, visual: (5) Delusions: (6) Paranoia: (7) Alcohol use disorder: (8) Depression: Plan Is a 57-year-old white male with history of polysubstance abuse and psychosis and known from previous inpatient stays presents again with active methamphetamine use and psychotic symptoms including auditory hallucinations along with severe depression. 1. Continue Zyprexa 20mg at night and propranolol and Prozac 20 mg daily to target depression. 2. Continue every 15 minute check for safety. 3. Encourage individual group and milieu therapy. 4. recommend sober living treatment at the highest level of care to which the patient is willing to commit. Involuntary Hold Information 96 Hour Hold: 96 Hour Involuntary Admission: No 96 Hour Hold Ending Date: 03/01/23 96 Hour Hold Ending Time: 00:01 Attestations NPU Medical Necessity Statement*: Inpatient hospitalization is medically necessary and deemed to ?be ?the clinically appropriate intervention ?at this time.? We will monitor/initiate medications and make changes as indicated.? The patient?s likely length of stay 5-7 days. 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
[2023-05-09 12:39] VITALS: BP 122/71; PULSE 64; RESP 18; TEMP 36.5; O2SAT 96
[2023-05-09 20:01] VITALS: BP 120/70; PULSE 68; RESP 16; O2SAT 96
[2023-05-09] MEDS: OLANZapine 10 mg TABLET 20 MG PO (20:37)
[2023-05-09] MEDS: trazodone 50 mg Tablet PO (20:37)
[2023-05-10 06:00] VITALS: RESP 18
[2023-05-10] MEDS: fluoxetine 20 mg Capsule PO (08:16)
[2023-05-10] MEDS: multivitamin therapeutic Tablet 1 TAB PO (08:16)
[2023-05-10] MEDS: thiamine 100 mg Tablet PO (08:16)
[2023-05-10] MEDS: folic acid 1 mg Tablet PO (08:16)
[2023-05-10] MEDS: propranolol 20 mg Tablet PO ×2 (08:17→21:19)
[2023-05-10 14:00] VITALS: BP 113/76; PULSE 78; RESP 16; TEMP 36.5; O2SAT 96
--- NOTE | 2023-05-10 15:07 | P.NPUPN_ITS ---
Subjective NPU Subjective: The patient is a 57-year-old white male with a history of psychosis along with methamphetamine and alcohol use admitted with depression and suicidal ideation with command auditory hallucinations. Patient had reported still being preoccupied by his thoughts. He had reported that the voices had been quieter. He continued to report depressed mood and suicidal ideation. He had endorsed so me feelings of hopelessness. Patient was isolative and spent much of the day in his room sleeping. He had reported feeling tired and had reported having significantly binged on methamphetamine prior to his arrival here. Mental Status Exam MSE Comments: The patient is a well-nourished well-developed tall white male in hospital scrubs with poor grooming and poor eye contact. There was continued p sychomotor retardation as he was at times difficult to awaken during the interview. There was no evidence of any abnormal involuntary motor movements tics or tremors. He wascooperative with the exam and appeared in mild distress. His speech showed evidence of increased latency in speech with normal volume. Mood was described as depressed. His affect was flat. Thought process was linear but superficial.. Thought content: Patient endorsed suicidal ideation with no active plan and no homicidal ideation. He did appear at times to be responding to internal stimuli despite endorsing no auditory or visual hallucinations. Recent and remote memory were grossly intact today. His insight was poor. His judgment is impaired. His impulse control appeared to be improving. Vitals/I&O/Wt Last Vital Signs Temp 97.7 F 05/09/23 12:39 Pulse 68 05/09/23 20:01 Resp 18 05/10/23 06:00 BP 120/70 05/09/23 20:01 Pulse Ox 96 05/09/23 20:01 O2 Del Method Room Air 05/09/23 20:01 Weight last 48 hrs Weight 100.244 kg Data NPU 05/06/23 21:09 05/06/23 21:09 A&P Assessment and plan (1) Acute psychosis: (2) Drug-induced psychotic disorder: (3) Auditory hallucinations: (4) Hallucinations, visual: (5) Delusions: (6) Paranoia: (7) Alcohol use disorder: (8) Depression: Plan Is a 57-year-old white male with history of polysubstance abuse and psychosis and known from previous inpatient stays presents again with active methamphetamine use and psychotic symptoms including auditory hallucinations along with severe depression. 1. Continue Zyprexa 20mg at night and Prozac 20 mg daily to target depression. 2. Continue every 15 minute check for safety. 3. Encourage individual group and milieu therapy. 4. recommend sober living treatment at the highest level of care to which the patient is willing to commit. Involuntary Hold Information 96 Hour Hold: 96 Hour Involuntary Admission: No 96 Hour Hold Ending Date: 03/01/23 96 Hour Hold Ending Time: 00:01 Attestations NPU Medical Necessity Statement*: Inpatient hospitalization is medically necessary and deemed to ?be ?the clinically appropriate intervention ?at this time.? We will monitor/initiate medications and make changes as indicated.? The patient?s likely length of stay 5-7 days. Coding Level of Care Code Acute Code for [facility] Fwd Diagnoses Acute psychosis F23 Drug-induced psychotic disorder F19.959 Auditory hallucinations R44.0 Hallucinations, visual R44.1 Delusions F22 Paranoia F22 Alcohol use disorder F10.90 Depression F32.A
[2023-05-10 20:16] VITALS: BP 120/69; PULSE 69; RESP 17; TEMP 36.5; O2SAT 94
[2023-05-10] MEDS: OLANZapine 10 mg TABLET 20 MG PO (21:19)
[2023-05-11 06:00] VITALS: RESP 17
[2023-05-11] MEDS: propranolol 20 mg Tablet PO ×2 (08:24→20:10)
[2023-05-11] MEDS: multivitamin therapeutic Tablet 1 TAB PO (08:24)
[2023-05-11] MEDS: thiamine 100 mg Tablet PO (08:24)
[2023-05-11] MEDS: fluoxetine 20 mg Capsule PO (08:24)
[2023-05-11] MEDS: folic acid 1 mg Tablet PO (08:24)
--- NOTE | 2023-05-11 09:32 | PC.NURSE ---
shaved face with electric razor under staff supervision
[2023-05-11 14:00] VITALS: BP 100/52; PULSE 77; RESP 18; TEMP 36.4; O2SAT 93
--- NOTE | 2023-05-11 15:42 | P.NPUPN_ITS ---
Subjective NPU Subjective: The patient is a 57-year-old white male with a history of psychosis along with methamphetamine and alcohol use admitted with depression and suicidal ideation with command auditory hallucinations. Patient had requested that he be taken off of Prozac and he had stated that it had made his stomach sick. He was agreeable to trying a different antidepressant in place of it. He had reported depressed mood. He had reported that the voices had been quieter. He had been less isolative on the milieu. He reported some improved sleep. Patient had continue to appear somewhat unmotivated but was more social and more interactive today with his peers. Patient had reported some cravings for methamphetamine. Mental Status Exam MSE Comments: The patient is a well-nourished well-developed tall white male in hospital scrubs with poor grooming and poor eye contact. There was continued psychomo tor retardation as he was at times difficult to awaken during the interview. There was no evidence of any abnormal involuntary motor movements tics or tremors. He was cooperative with the exam and appeared in mild distress. His speech was normal in rate rhythm and prosody today. Mood was described as depressed. His affect was flat. Thought process was linear but superficial.. Thought content: Patient endorsed suicidal ideation with no active plan and no homicidal ideation. He did not appear to be responding internal stimuli although he endorsed auditory hallucinations . His recent and remote memory were grossly intact today. His insight was poor. His judgment is impaired. His impulse control appeared to be improving. Vitals/I&O/Wt Last Vital Signs Temp 97.5 F L 05/11/23 14:00 Pulse 77 05/11/23 14:00 Resp 18 05/11/23 14:00 BP 100/52 05/11/23 14:00 Pulse Ox 93 05/11/23 14:00 O2 Del Method Room Air 05/10/23 20:16 Data NPU 05/06/23 21:09 05/06/23 21:09 A&P Assessment and plan (1) Acute psychosis: (2) Drug-induced psychotic disorder: (3) Auditory hallucinations: (4) Hallucinations, visual: (5) Delusions: (6) Paranoia: (7) Alcohol use disorder: (8) Depression: Plan Is a 57-year-old white male with history of polysubstance abuse and psychosis and known from previous inpatient stays presents again with active methamphetamine use and psychotic symptoms including auditory hallucinations along with severe depression. 1. Continue Zyprexa 20mg at night and d/c prozac today. Begin low dose of cymbalta 30mg to target depression. 2. Continue every 15 minute check for safety. 3. Encourage individual group and milieu therapy. 4. recommend sober living treatment at the highest level of care to which the patient is willing to commit. Involuntary Hold Information 96 Hour Hold: 96 Hour Involuntary Admission: No 96 Hour Hold Ending Date: 03/01/23 96 Hour Hold Ending Time: 00:01 Attestations NPU Medical Necessity Statement*: Inpatient hospitalization is medically necessary and deemed to ?be ?the clinically appropriate intervention ?at this time.? We will monitor/initiate medications and make changes as indicated.? The patient?s likely length of stay 5-7 days. 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
[2023-05-11 19:37] VITALS: BP 116/73; PULSE 70; RESP 16; O2SAT 96
[2023-05-11] MEDS: nicotine 4 mg lozenge MUCOUS MEM (19:42)
[2023-05-11] MEDS: OLANZapine 10 mg TABLET 20 MG PO (20:10)
[2023-05-12 06:00] VITALS: BP 122/80; PULSE 64; RESP 15; O2SAT 95
[2023-05-12] MEDS: multivitamin therapeutic Tablet 1 TAB PO (09:54)
[2023-05-12] MEDS: folic acid 1 mg Tablet PO (09:54)
[2023-05-12] MEDS: nicotine 4 mg lozenge MUCOUS MEM ×4 (09:54→20:02)
[2023-05-12] MEDS: propranolol 20 mg Tablet PO ×2 (09:54→21:16)
[2023-05-12] MEDS: duloxetine 30 mg Capsule PO (09:54)
[2023-05-12] MEDS: thiamine 100 mg Tablet PO (09:54)
[2023-05-12 14:00] VITALS: BP 110/67; PULSE 98; RESP 12; TEMP 36.4; O2SAT 95
--- NOTE | 2023-05-12 16:07 | P.NPUPN_ITS ---
Subjective NPU Subjective: The patient is a 57-year-old white male with a history of psychosis along with methamphetamine and alcohol use admitted with depression and suicidal ideation with command auditory hallucinations. Patient reported that the voices had been better. He reported continued depression. He reported no stomach problems since the discontinuation of Prozac. He had appeared to attend groups today. He had been more calm and compliant and cooperative on the milieu. He had expressed frustration with not having the chance to avoid homelessness due to problems with a previous domestic violence charge. He had reported that homelessness had caused extreme distress for him including worsening depression. Mental Status Exam MSE Comments: The patient is a well-nourished well-developed tall white male in hospital scrubs with poor grooming and fair eye contact. There was mild psychomotor retardation appreciated. He was alert and oriented person place and time. There was no evidence of any abnormal involuntary motor movements tics or tremors. He was cooperative with the exam. His speech was normal in rate rhythm and prosody today. Mood was described as depressed. His affect remained restricted. Thought process was linear but superficial.. Thought content: Patient endorsed no suicidal ideation with no active plan and no homicidal ideation. He did not appear to be responding internal stimuli and described a diminishment in the auditory hallucinations. His recent and remote memory were grossly intact today. His insight was poor. His judgment is impaired. His impulse control appeared to be improving. Vitals/I&O/Wt Last Vital Signs Temp 97.5 F L 05/12/23 14:00 Pulse 98 05/12/23 14:00 Resp 12 05/12/23 14:00 BP 110/67 05/12/23 14:00 Pulse Ox 95 05/12/23 14:00 O2 Del Method Room Air 05/12/23 14:00 Data NPU 05/06/23 21:09 05/06/23 21:09 A&P Assessment and plan (1) Acute psychosis: (2) Drug-induced psychotic disorder: (3) Auditory hallucinations: (4) Hallucinations, visual: (5) Delusions: (6) Paranoia: (7) Alcohol use disorder: (8) Depression: Plan Is a 57-year-old white male with history of polysubstance abuse and psychosis and known from previous inpatient stays presents again with active methamphetamine use and psychotic symptoms including auditory hallucinations along with severe depression. 1. Continue Zyprexa 20mg at night. Continue cymbalta 30mg to target depressio n. 2. Continue every 15 minute check for safety. 3. Encourage individual group and milieu therapy. 4. recommend sober living treatment at the highest level of care to which the patient is willing to commit. Involuntary Hold Information 96 Hour Hold: 96 Hour Involuntary Admission: No 96 Hour Hold Ending Date: 03/01/23 96 Hour Hold Ending Time: 00:01 Attestations NPU Medical Necessity Statement*: Inpatient hospitalization is medically necessary and deemed to ?be ?the clinically appropriate intervention ?at this time.? We will monitor/initiate medications and make changes as indicated.? The patient?s likely length of stay 2-3 days. 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
[2023-05-12] MEDS: OLANZapine 10 mg TABLET 20 MG PO (20:02)
[2023-05-12] MEDS: trazodone 50 mg Tablet PO (20:23)
[2023-05-12 20:32] VITALS: BP 126/77; PULSE 77; RESP 16; TEMP 36.4; O2SAT 94
[2023-05-13 06:00] VITALS: RESP 18
[2023-05-13] MEDS: duloxetine 30 mg Capsule PO (09:12)
[2023-05-13] MEDS: propranolol 20 mg Tablet PO ×2 (09:12→20:04)
[2023-05-13] MEDS: multivitamin therapeutic Tablet 1 TAB PO (09:12)
[2023-05-13] MEDS: thiamine 100 mg Tablet PO (09:12)
[2023-05-13] MEDS: folic acid 1 mg Tablet PO (09:12)
[2023-05-13] MEDS: nicotine 4 mg lozenge MUCOUS MEM ×2 (09:15→19:18)
--- NOTE | 2023-05-13 12:16 | W.PM.NPUPNS ---
Subjective NPU Subjective: Patient presented today reporting that he is doing okay. He reports that the plan is for him to go to [facility] for some safe housing and try to start getting his life back in order. He continues to struggle with his addiction and some ambivalence surrounding his choices. Otherwise he seemed happy with his plan to go to [facility] and use that as a new foundation. Mental Status Exam MSE Comments: The patient is a well-nourished well-developed tall white male in hospital scrubs with limited grooming and eye contact. No abnormal movements except for mild psychomotor retardation. Mostly cooperative exam in mild distress. His speech was spontaneous with slightly decreased rate and volume. Mood described as better, affect guarded. Thought process was linear. Thought content: Patient denied suicidal or homicidal ideation, there are no delusions reported but he appeared to have some paranoia, he did not appear to be responding to internal stimuli. . Attention and concentration appeared intact and memory was limited but none were formally tested. He was alert and oriented times person and place. His insight was poor. His judgment is impaired. His impulse control appeared poor as well. Vitals/I&O/Wt Last Vital Signs Temp 97.6 F 05/12/23 20:32 Pulse 77 05/12/23 20:32 Resp 18 05/13/23 06:00 BP 126/77 05/12/23 20:32 Pulse Ox 94 05/12/23 20:32 O2 Del Method Room Air 05/12/23 20:32 Data NPU 05/06/23 21:09 05/06/23 21:09 A&P Assessment and plan (1) Acute psychosis: (2) Drug-induced psychotic disorder: (3) Auditory hallucinations: (4) Hallucinations, visual: (5) Delusions: (6) Paranoia: (7) Alcohol use disorder: (8) Depression: Plan Is a 57-year-old white male with history of polysubstance abuse and psychosis and known from previous inpatient stays presents again with active methamphetamine use and psychotic symptoms including auditory hallucinations along with severe depression. 1. Continue Zyprexa 20mg at night. Continue cymbalta 30mg to target depression. 2. Continue every 15 minute check for safety. 3. Encourage individual group and milieu therapy. 4. recommend sober living treatment at the highest level of care to which the patient is willing to commit. 5. Appears [facility] may be a suitable discharge location and will consider discharge soon. Involuntary Hold Information 96 Hour Hold: 96 Hour Involuntary Admission: No 96 Hour Hold Ending Date: 03/01/23 96 Hour Hold Ending Time: 00:01 Attestations NPU Medical Necessity Statement*: Inpatient hospitalization is medically necessary and deemed to ?be ?the clinically appropriate intervention ?at this time.? We will monitor/initiate medications and make changes as indicated.? The patient?s likely length of stay 1-2 days. Coding Level of Care Code Acute Code for [facility] Fwd Diagnoses Acute psychosis F23 Drug-induced psychotic disorder F19.959 Auditory hallucinations R44.0 Hallucinations, visual R44.1 Delusions F22 Paranoia F22 Alcohol use disorder F10.90 Depression F32.A
[2023-05-13 14:00] VITALS: BP 116/70; PULSE 69; RESP 18; TEMP 36.6; O2SAT 97
[2023-05-13] MEDS: OLANZapine 10 mg TABLET 20 MG PO (20:05)
[2023-05-13] MEDS: trazodone 50 mg Tablet PO ×2 (20:05→21:14)
[2023-05-13 20:14] VITALS: BP 119/75; PULSE 80; RESP 18; TEMP 36.6; O2SAT 97
--- NOTE | 2023-05-14 06:35 | PC.NURSE ---
pt resting resp 18
[2023-05-14] MEDS: duloxetine 30 mg Capsule PO (08:59)
[2023-05-14] MEDS: thiamine 100 mg Tablet PO (08:59)
[2023-05-14] MEDS: folic acid 1 mg Tablet PO (08:59)
[2023-05-14] MEDS: multivitamin therapeutic Tablet 1 TAB PO (08:59)
[2023-05-14] MEDS: nicotine 4 mg lozenge MUCOUS MEM (11:00)
--- NOTE | 2023-05-14 11:47 | P.NPUDS_ITS ---
Diagnoses at Discharge Discharge Diagnosis (1) Acute psychosis: Status: Resolved (2) Drug-induced psychotic disorder: Status: Acute (3) Auditory hallucinations: Status: Resolved (4) Hallucinations, visual: Status: Resolved (5) Delusions: Status: Resolved (6) Paranoia: Status: Acute (7) Alcohol use disorder: Status: Acute (8) Depression: Status: Acute Reason for Visit Reason for Visit: Psych Brief History: History of Present Illness Otilio Carpio is a 57 year old male recently discharged from the neuropsychiatric unit in March 2023 who presents with auditory hallucinations. The patient hernandez had been discharged on March 08, 2023 directly to [facility] for further treatment for alcohol use and methamphetamine use. He states that he completed the 1 month program there but he was homeless shortly afterwards and reports that he has begun to use alcohol and methamphetamine over the last few weeks. He reports that he has been unable to escape the homelessness and reports that he has been having more suicidal thoughts while hearing voices that are telling him to hurt himself. He reports feeling more hopeless and states that he has been feeling depressed. He had stated that he had become frustrated and had taken all of his olanzapine to try to help with the voices. He reports having difficulties with sleep. He reports that his voices are intermittent but are more frequent and intense in nature. Inpatient psychiatric history: See below Outpatient psychiatric history: He is followed through [facility] through [facility] program Current medications: Abilify 10 mg daily, Zyprexa 30 mg at night Drug and alcohol history: See below, recent admission to inpatient at [facility] for drug and alcohol treatment. Allergies: Penicillin Medical history: Hypertension Excerpt from outpatient evaluation on 04/21/23 below: [facility] History and Physical Time In: 12:00 Time Out: 12:30 History of Present Illness: [facility]. He tells me he is not doing well. He states he is not doing well because he is homeless. He indicates he has a past domestic violence charge which has prevented him from getting in any shelters. He does tell me he has been living in his car for 2 weeks. He states he cannot sleep well at night. Does not elaborate more on this other than stating he has a lot on his mind. He states he is hearing voices. He does not want to talk about the voices he is hearing. He states it is an evil symphony in my head, I am fucked up, I'm screwy . Otilio denies suicidal thoughts. He denies homicidal thoughts. Because of Otilio's mood, being very irritable, being very uncooperative we agreed upon continuing the prescription today that was prescribed in the hospital and rescheduling for a future date. History Past Psychiatric History: Otilio tells me he has been hospitalized too many times to count . Reason for hospitalizations is that he hears voices. Last hospitalized 2 months ago. Denies previous suicide attempts. When questioned about prior mental health treatment he states he has been treated all over the place. He does acknowledge during his last hospitalization he was not taking any medication. He was released from long term in July 2022 and was not taking medication at that time. During his last hospitalization he was started on olanzapine 10 mg in the a.m. and 20 mg at bedtime. He asks if this prescription can be changed to olanzapine sublingual 20 mg daily. Aida is uncooperative with assessment and no further information was given. Family History: Otilio comments he is adopted any is unaware of any family history of mental illness Past Medical History: Otilio does not have a primary care provider. He comments he has not been treated for any illnesses. He states he has not had any previous injuries or surgeries. Comments sarcastically I guess I am just abril Substance Use History: Otilio was very uncooperative with the assessment. He does report smoking half pack of cigarettes a day but does not give any further details such as length of use. I spent 5 minutes providing smoking cessation counseling. We talked about history of use, current usage, prior attempts at quitting, and psychological barriers to quitting. I gauged his desire to quit and he is not ready at this time. Otilio reports prior marijuana use. Comments yes I smoke . He gives no further details on frequency of use, lengthy use, age of first use. He does state that he is done with all of that. Otilio does acknowledge prior methamphetamine use. He is unable to tell me when his last use was, amount of use, frequency of use, age of first use. Comments I cannot tell you . Urine drug screen shows positive amphetamine test from February 2023. Otilio denies alcohol use. Social History: Otilio tells me he is homeless. He states he is originally from [place] but came to [place] to be near his mom but states she . He is . He has 3 kids that are grown that lives in [place]. States he has not spoke to them in over 20 years. Tells me he has been homeless for 2 weeks. He does receive income of Social Security income/$777 a month. He tells me he is on parole. He states he was in long term for 3 and half years for domestic assault. He describes this as an obstacle in finding a place to stay as he is not able to go to any shelters because of the domestic violence charge. He states he has been in long term more than that but does not go into details. Just comments I have been in long term throughout my lifetime. Otilio tells me he graduated college for [employer]. Otilio does receive food stamps. He is very uncooperative and does not answer questions of history of physical/emotional/sexual abuse or any follow-up questions besides the brief answers he did provide. Comments often I do not see why any of this is relevant . Discharge summary from 03/08/23-U si Brief History: History of Present Illness Otilio Carpio is a 57 year old male who presented to the emergency department with the following report: Chief Complaint: Psychiatric Symptoms Stated Complaint: si Time Seen by Provider: 02/22/23 19:15 History of Present Illness: Mr Carpio is a 57-year-old gentleman with history of depression and substance abuse presenting to the emergency department for depression with suicidal ideation. He reports voices that are telling him to kill himself. He essentially reports not remembering the past week possibly due to substance abuse though is somewhat vague. Denies physical injury or actual suicide attempt. No other specific changes in health, exacerbating, or alleviating factors identified. Patient was admitted to the neuropsychiatric unit for definitive treatment of those issues. He presents today very isolative and sleeping most of the time. Multiple attempts were made to engage him prior to the opportunity for a brief encounter. He was very abrupt and had very negative aggressive posturing. He is known to this tag writer from previous stays and so his likelihood for aggressive acting out has been limited thus far. He once again presents with positive UDS for methamphetamine but having psychosis and feeling irritable that anyone would challenge the veracity of his psychosis. Much of the challenging is essentially asking reasonable questions about the things he reports that any follow-up questions about the psychotic symptoms are seen by him as questioning what he is saying likely an off shoot of his paranoia. He was limited in his ability to talk about psychosocial conditions including his living conditions etc. So an excerpt of his last hospitalization which was about 3 and half months ago is included below for additional information. He was reporting taking Zyprexa now and we talked about increasing that dose and we could determine what the initial dose was because he did not know or did not recall. The patient reports continued depression, low energy, difficulties with sleep continuity disruption, increased feelings of hopelessness and suicidal ideation. He reports anhedonia has well. Per his 11/09/2022 [facility] inpatient psychiatric discharge summary: Discharge Diagnosis (1) Acute psychosis: Status: Acute (2) Drug-induced psychotic disorder: Status: Acute (3) Auditory hallucinations: Status: Acute (4) Hallucinations, visual: Status: Acute (5) Delusions: Status: Acute (6) Paranoia: Status: Acute (7) Alcohol use disorder: Status: Acute Reason for Visit Reason for Visit: PSYCH EVAL Brief History: History of Present Illness Otilio Carpio is a 57 year old male who presented to the emergency department with the following report: Chief Complaint: Psychiatric Symptoms Stated Complaint: PSYCH EVAL Time Seen by Provider: 10/31/22 13:47 History of Present Illness: Mr Carpio is a 57-year-old gentleman presenting to the emergency department for psychiatric concerns. He reports some bit of time of having, what I suspect are, auditory and visual hallucinations and paranoia. He reports longstanding history of being spiritual and his third eye in his pineal gland being open however is very vague as far as previous psychiatric diagnoses. He reports since he moved to [place] he was initially out of correction and living with his mother. He noted seeing people and hearing words in the events. He also endorses people watching him and spying on him and trying to blackmail him. He is unsure of exactly how this happens though thinks it is through perhaps cameras in the events of smoke detectors. He thinks that there are drones that are flying around him lately. He does endorse a history of tobacco use. He endorses a history of drinking denies daily alcohol use and denies history of DT/alcohol withdrawal seizure. He denies recent other substance abuse. Intensity symptoms is moderate to severe. The patient is afraid that somebody is going to check into the hospital hiding a gun up is as to blow my brains out . No other specific changes in health, exacerbating, or alleviating factors identified. He was admitted to the neuropsychiatric unit for definitive treatment of those issues. He was a very resistant historian with very few answers to questions posed to him. And most of those answers were enmeshed in a very serious likely paranoid delusional network. He just kept repeating that they are out to get me and I am not safe anywhere. Any question was perceived as a lack of belief of his report that he was being followed and these people were appearing everywhere. Additionally challenging the situation was a clear hypersomnolence likely connected to a crash from methamphetamine. He had refused thus far to give a urine sample so there was a BAL of but his UDS was not obtained as of this interview and bringing up his history of drugs led to him saying that he was not being believed in him essentially ending the interview. An excerpt of his evaluation/discharge summary from last month is included below for historical context. Per his 09/10/2022 [facility] inpatient psychiatric discharge summary: PSYCH EVAL Brief History: Otilio Carpio is a 57 year old male who was admitted to the neuropsychiatric unit after presenting to the emergency room complaining of seeing and hearing things in his living situation at the [facility]. He reports that he had used methamphetamine approximately 3 days ago. He reports that he has been hearing voices in the ducts of the air vents stating that I am going to kill you . He reports that he has never had any experience like this and states that there have been cameras placed in his mothers room and there that has been observing what she has been doing and has been gathering secret and personal information on the patient as well. He denies any suicidal ideation and stated that he simply needed to get out of the situation. He states he has been in this [facility] facility with his mother for the past 45 days. Prior to that mother had been there for at least a year. He has reported a history of alcohol use but also reports a history of stimulant abuse reporting recent methamphetamine abuse for several years and states most recent use 3 days ago with alcohol as well. He denies any current depression but reports being anxious and frustrated as he reports that the nursing facility at the [facility] needs to be examined for their fraud and there invasion of privacy. The patient reports that he had been in long term for 3 years prior to being released and he is on parole. Inpatient psychiatric history: He had reported previous inpatient treatments in [place] for depression in the past although he did not elaborate. Outpatient psychiatric history: He reports none currently. Drug and alcohol history: He had reported a history of polysubstance abuse including cocaine alcohol and currently methamphetamine. Current medications: None Allergies: Penicillin Medical history: None Surgical history: None Legal history: He reports multiple long term stints, most recently 6 weeks ago. Social history: The patient reports that he had been residing in an assisted living facility with his elderly mother age 81 who has multiple medical problems. He reports having just been released from long term. He reports having several children and states that he had been previously 1 time but is . He states he was born in [place] and had earned a degree in engineering having graduated from [employer]. He reports a history of legal problems involved in producing and delivering illicit substances. Family psychiatric history: None reported Hospital Course He slowly acclimated to the individual, group and milieu therapies provided. He presented frankly psychotic with significant paranoia that he is being chased by imaginary people. He initially was refusing medication but ultimately let us restart his Abilify with very positive effects. His paranoia started to subside and eventually he was able to begin to question whether the paranoia was authentic or represented a sequela of his drug use. He continues to be resistant to inpatient treatment but did accept referrals to outpatient services. Not having success with low-dose Zoloft. Ultimately he was continuum propranolol and Abilify increased to 20 mg p.o. nightly. He had significant improvement during the stay and worked with the social work team to get connected with outpatient resources. He was able to contract for safety, outside of the hospital prior to discharge. During the hospitalization he had routine laboratory studies which were within normal limits except for few outliers. Additionally had a general medical evaluation which was also within normal limits and revealed no new acute processes. Hospital Course Hospital Course He slowly acclimated to the individual, group and milieu therapies provided. He presented as he often has with methamphetamine use and psychosis. His Zyprexa was restarted. Prozac was started then discontinued and Cymbalta 30 mg daily was the placement. He is part of the [facility] program and they were able to assist him in getting into [facility]. He had significant improvement. He was able to contract for safety outside of the hospital prior to discharge. During the hospitalization, patient had routine laboratory studies which were within normal limits except for few outliers. Additionally there was a general medical evaluation which was also within normal limits and revealed no new acute processes. Discharge Summary: At the time of discharge, lethality was denied and psychosis was resolving. Mood and anxiety were well managed. Patient endorsed a plan to avoid all drugs of abuse and follow-up with the aftercare recommendations of the treatment team. Patient was evaluated and deemed to be absent credible lethality, and had achieved the maximum benefit from an inpatient hospitalization, so was discharged. Involuntary Hold Information 96 Hour Hold: 96 Hour Involuntary Admission: No 96 Hour Hold Ending Date: 03/01/23 96 Hour Hold Ending Time: 00:01 Mental Status Exam MSE Comments: The patient is a well-nourished well-developed tall white male in hospital scrubs with limited grooming and eye contact. No abnormal movements except for mild psychomotor retardation. Mostly cooperative exam in mild distress. His speech was spontaneous with slightly decreased rate and volume. Mood described as better, affect guarded. Thought process was linear. Thought content: Patient denied suicidal or homicidal ideation, there are no delusions reported but he appeared to have some paranoia, he did not appear to be responding to internal stimuli. . Attention and concentration appeared intact and memory was limited but none were formally tested. He was alert and oriented times person and place. His insight was poor. His judgment is impaired. His impulse control appeared poor as well. Discharge Data Studies Completed and Pending: Laboratory Results WBC 7.73 10^3/uL (3.2 9-11.43) 05/06/23 21:09 RBC 4.95 10^6/uL (3.8 5-5.65) 05/06/23 21:09 Hgb 14.70 g/dL (11.27 -16.99) 05/06/23 21:09 Hct 44.5 % (37-53) 05/06/23 21:09 MCV 89.9 fl (82-101) 05/06/23 21:09 MCH 29.7 pg (27-33) 05/06/23 21:09 MCHC 33.0 g/dL (30-55) 05/06/23 21:09 RDW 13.5 % (12.1-15.1 ) 05/06/23 21:09 Plt Count 243 10^3/cmm (157 -399) 05/06/23 21:09 MPV 10.1 fL (7.4-10.4 ) 05/06/23 21:09 Neut % (Auto) 54.0 % 05/06/23 21:09 Lymph % (Auto) 28.5 % 05/06/23 21:09 Blair % (Auto) 13.2 % 05/06/23 21:09 Eos % (Auto) 2.5 % 05/06/23 21:09 Baso % (Auto) 1.3 % 05/06/23 21:09 Neut # (Auto) 4.18 10^3/uL (1.8 -7.7) 05/06/23 21:09 Lymph # (Auto) 2.2 10^3/uL (0.8- 4.8) 05/06/23 21:09 Blair # (Auto) 1.0 10^3/uL (0.2- 0.9) H 05/06/23 21:09 Eos # (Auto) 0.2 10^3/uL (0.0- 0.8) 05/06/23 21:09 Baso # (Auto) 0.1 10^3/uL (0.0- 0.1) 05/06/23 21:09 Nucleated RBC % (a uto) 0 % 05/06/23 21:09 Nucleated RBCs # 0.0 /100WBC 05/06/23 21:09 Sodium 141 mmol/L (136-1 45) 05/06/23 21:09 Potassium 4.1 mmol/L (3.5-5 .1) 05/06/23 21:09 Chloride 104 mmol/L (98-10 7) 05/06/23 21:09 Carbon Dioxide 26 mmol/L (22-29) 05/06/23 21:09 Anion Gap 15.1 (5-19) 05/06/23 21:09 BUN 12 mg/dL (6-20) 05/06/23 21:09 Creatinine 0.7 mg/dL (0.7-1. 2) 05/06/23 21:09 GFR Calculation 116.7 mL/min (90- 130) 05/06/23 21:09 Glucose 124 mg/dL (65-115 ) H 05/06/23 21:09 Calculated Osmolal ity 293 mOsm/kg (285- 295) 05/06/23 21:09 Calcium 8.9 mg/dL (8.5-10 .5) 05/06/23 21:09 Total Bilirubin 0.2 mg/dL (0.15-1 .2) 05/06/23 21:09 AST 21 U/L (0-40) 05/06/23 21:09 ALT 14 U/L (0-41) 05/06/23 21:09 Alkaline Phosphata se 81 U/L (40-130) 05/06/23 21:09 Total Protein 6.7 g/dL (6.6-8.7 ) 05/06/23 21:09 Albumin 3.9 g/dL (3.5-5.2 ) 05/06/23 21:09 Globulin 2.8 g/dL (1.3-4.6 ) 05/06/23 21:09 Urine Color Yellow (Yellow) 05/06/23 22:05 Urine Appearance Clear (CLEAR) 05/06/23 22:05 Urine pH 6 (5-7) 05/06/23 22:05 Ur Specific Gravit y 1.020 (1.005-1.0 30) 05/06/23 22:05 Urine Protein Neg (Negative) 05/06/23 22:05 Urine Glucose (UA) Norm (Normal) 05/06/23 22:05 Urine Ketones Negative (Negati ve) 05/06/23 22:05 Urine Blood Neg (Negative) 05/06/23 22:05 Urine Nitrate Negative (Negati ve) 05/06/23 22:05 Urine Bilirubin Neg (Negative) 05/06/23 22:05 Urine Urobilinogen Norm mg/dL (Negat cortney) 05/06/23 22:05 Ur Leukocyte Lisa ase Negative (Negati ve) 05/06/23 22:05 Salicylates < 0.3 mg/dL (3-10 ) L 05/06/23 21:09 Urine Opiates Scre en Negative ng/mL (N egative) 05/06/23 22:05 Acetaminophen < 5.0 ug/mL (10-3 0) L 05/06/23 21:09 Ur Barbiturates Sc reen Negative ng/mL (N egative) 05/06/23 22:05 Ur Phencyclidine S crn Negative ng/mL (N egative) 05/06/23 22:05 Ur Amphetamines Sc reen Positive ng/mL (N egative) H 05/06/23 22:05 U Benzodiazepines Scrn Negative ng/mL (N egative) 05/06/23 22:05 Urine Cocaine Scre en Negative ng/mL (N egative) 05/06/23 22:05 U Marijuana (THC) Screen Negative ng/mL (N egative) 05/06/23 22:05 Ethyl Alcohol 49 mg/dL (0-10) H 05/06/23 21:09 Vitals: Last Vital Signs Temp 97.8 F 05/13/23 20:14 Pulse 80 05/13/23 20:14 Resp 18 05/13/23 20:14 BP 119/75 05/13/23 20:14 Pulse Ox 97 05/13/23 20:14 O2 Del Method Room Air 05/13/23 20:14 Discharge Plan Discharge Patient Disposition: Home Condition: Stable Prescriptions: New trazodone 50 mg Tablet 50 mg PO BEDTIME PRN (Reason: Sleep) 30 Days Qty: 30 1RF propranolol 20 mg Tablet 20 mg PO 0900,2100 30 Days Qty: 60 1RF Vitamin B-1 (mononitrate) 100 mg Tablet 100 mg PO DAILY 30 Days Qty: 30 1RF olanzapine 20 mg tablet 20 mg PO BEDTIME 30 Days Qty: 30 1RF hydroxyzine pamoate 25 mg Capsule 50 mg PO Q6H PRN (Reason: Anxiety) 30 Days Qty: 120 1RF duloxetine 30 mg Capsule,Delayed Release(Dr/Ec) 30 mg PO DAILY 30 Days Qty: 30 1RF Discontinued aripiprazole [Abilify] 10 mg tablet 10 mg PO BEDTIME olanzapine [Zyprexa Zydis] 20 mg tablet,disintegrating 20 mg PO DAILY hydroxyzine pamoate [Vistaril] 25 mg capsule 25 mg PO PRN PRN (Reason: Anxiety) propranolol 20 mg tablet 20 mg PO PRN PRN (Reason: Hypertension) Discharge Orders: Discharge Order (Routine); Ordered 05/14/23 Ordered By: Lobo Mcgee Referrals: [facility] Transitional Living [Other] - 05/14/23 Kierra Lainez PMHNP [Staff Physician] - 05/20/23 2:45 pm Discharge Diet: Regular Discharge Activity: Resume usual activity Patient Instructions: Propranolol (By mouth), Trazodone (By mouth), Duloxetine (By mouth), Methamphetamine Use Disorder (DC), Suicide Prevention (DC), Opioid Safety Discharge Attestations NPU Time Spent in Discharge Care*: less than 30 min Specific Discharge Activities: Specific discharge activities: educating patient, discussing with human services case manager/social workers/dc planners, documenting/other paperwork and evaluating patient/reviewing data Coding Level of Care Code Acute Chg FW DC note Diagnoses Acute psychosis F23 Drug-induced psychotic disorder F19.959 Auditory hallucinations R44.0 Hallucinations, visual R44.1 Delusions F22 Paranoia F22 Alcohol use disorder F10.90 Depression F32.A
[2023-05-14 12:19] VITALS: BP 119/75; PULSE 80; RESP 18; TEMP 36.6; O2SAT 97
--- NOTE | 2023-05-14 12:43 | DCPLANNER ---
Imm was printed and given to and explained to pt and copy placed in file.
== END 2023-05-14 13:50 | disposition home or self-care (01) | DRG 885 ==
LOC: ER 20:55 → NP 22:40
PROVIDERS: Emergency Medicine; Admitting Provider Psychiatry & Neurology Psychiatry; Emergency Provider Emergency Medicine; Visit Provider Psychiatry & Neurology Psychiatry
DX: F23 Brief psychotic disorder (principal); R45.851 Suicidal ideations; Z59.00 Homelessness unspecified; F17.210 Nicotine dependence, cigarettes, uncomplicated; F32.A Depression, unspecified; F10.10 Alcohol abuse, uncomplicated; F15.10 Other stimulant abuse, uncomplicated
CPT/HCPCS: 36415; 80053; 80306; 80307; 81003; 85025; 97150; 97165; 99238; 99285

== ENCOUNTER 2023-06-02 03:42 | Emergency (ER) | payer MEDICAID, SELFPAY ==
[2023-06-02 03:43] VITALS: BP 178/115; PULSE 109; RESP 18; TEMP 36.6; O2SAT 100; BMI 26.4
--- NOTE | 2023-06-02 03:47 | W.ED.PSYCHS ---
HPI - Psych General: Chief Complaint: Psychiatric Symptoms Stated Complaint: Stress Time Seen by Provider: 06/02/23 03:43 Source: patient and EMS Mode of arrival: EMS Limitations: no limitations History of Present Illness: 57-year-old male who states that he has been having increasing anxiety and has been out of all his medication. He states that he does drink he uses drugs occasionally as well. He is adamant that he is not suicidal or homicidal he does not express any suicidality or homicidality to EMS he denies any psychosis states that he just wants his medications refilled at this time. Review of Systems Const: Denies: fever(s) or chills ENMT: Denies: throat pain or dental pain Card: Denies: chest pain Resp: Denies: dyspnea GI: Denies: abdominal pain, nausea, vomiting or diarrhea : Denies: dysuria Musc: Denies: neck pain or back pain Skin/Breast: Denies: rash Neuro: Denies: headache(s) Psych: Reports: anxiety [facility] ED PFSH: Medical History Methamphetamine use disorder, mild Nicotine use disorder No significant past medical history On combination antipsychotic drug therapy Psychiatric care Surgical History No significant past surgical history Social History Smoking and tobacco status: current every day smoker Substance/Drug Use: current Physical Exam Const: COMMON NORMALS: no acute distress, patient oriented x3 and healthy appearing HENMT: COMMON NORMALS: normocephalic and atraumatic HEAD & SCALP: normocephalic and atraumatic Eye: COMMON NORMALS: Equal, round and reactive pupils present and EOMs intact bilaterally PUPIL: Yes Equal, round and reactive pupils present Neck/C-Spine: COMMON NORMALS: full ROM and supple Chest: COMMONS NORMALS: normal inspection of the chest and normal palpation of entire chest wall Resp: COMMON NORMALS: normal respiratory effort, No retractions, No use of accessory muscles and clear to auscultation bilaterally AUSCULTATION: clear to auscultation bilaterally Cardio: COMMON NORMALS: regular rate, regular rhythm and No murmurs present (Cardio) RATE: regular rate RHYTHM: regular rhythm GI: COMMON NORMALS: Normal to inspection, nondistended, normoactive bowel sounds present, Soft to palpation, non-tender and no masses PALPATION: Yes Soft to palpation Extremity: COMMON NORMALS: normal to inspection and full ROM Neuro: COMMON NORMALS: patient oriented x3, moves all extremities and no focal motor deficits Psych: COMMON NORMALS: mental status grossly normal, Normal thought process present and cooperative THOUGHT PROCESS: Normal thought process present Skin: COMMON NORMALS: no rashes or lesions noted and no wounds GENERAL SKIN EXAM: no rashes or lesions noted Course Vital Signs: Vital signs: Vital Signs Temperature 97.8 F 06/02/23 04:05 Pulse Rate 109 H 06/02/23 04:05 Respiratory Rate 18 06/02/23 04:05 Blood Pressure 178/115 06/02/23 04:05 Pulse Oximetry 100 06/02/23 04:05 Oxygen Delivery Me thod Room Air 06/02/23 03:43 MDM - Psych Medical Decision Making Patient presents with anxiety along with stating he needs his meds refilled he denies being suicidal or homicidal states at this time he just needs his medication we will refill his meds he is to follow-up with [facility] and return if worsening Medical Records I reviewed the patient's medical records. No radiology studies performed this visit Discharge Plan Discharge Patient Disposition: Home Clinical Impression: Anxiety, Alcohol use disorder, Medication refill Condition: Stable Prescriptions: Continued trazodone 50 mg Tablet 50 mg PO BEDTIME PRN (Reason: Sleep) 30 Days Qty: 30 1RF propranolol 20 mg Tablet 20 mg PO 0900,2100 30 Days Qty: 60 1RF olanzapine 20 mg tablet 20 mg PO BEDTIME 30 Days Qty: 30 1RF hydroxyzine pamoate 25 mg Capsule 50 mg PO Q6H PRN (Reason: Anxiety) 30 Days Qty: 120 1RF duloxetine 30 mg Capsule,Delayed Release(Dr/Ec) 30 mg PO DAILY 30 Days Qty: 30 1RF No Action Vitamin B-1 (mononitrate) 100 mg Tablet 100 mg PO DAILY 30 Days Qty: 30 1RF Discharge Orders: Discharge ED (Routine); Ordered 06/02/23 Ordered By: Hima Jones Discharge Diet: Advance as tolerated Discharge Activity: Resume usual activity Patient Instructions: Anxiety (ED) Coding Level of Care Code ED [employer] Liaison for Humaira Gomez
[2023-06-02] MEDS: OLANZapine 10 mg TABLET 20 MG PO (03:52)
[2023-06-02 04:05] VITALS: BP 178/115; PULSE 109; RESP 18; TEMP 36.6; O2SAT 100
== END 2023-06-02 04:05 | disposition home or self-care (01) ==
PROVIDERS: Emergency Provider Emergency Medicine
DX: F41.9 Anxiety disorder, unspecified (principal); F10.90 Alcohol use, unspecified, uncomplicated; Z76.0 Encounter for issue of repeat prescription; F17.210 Nicotine dependence, cigarettes, uncomplicated
CPT/HCPCS: 99283

== ENCOUNTER 2023-06-07 12:06 | Inpatient (IN) | payer MEDICARE, MEDICAID, SELFPAY ==
[2023-06-07 12:07] VITALS: BP 156/96; PULSE 99; RESP 16; TEMP 37; O2SAT 97; BMI 27.7
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
--- NOTE | 2023-06-07 12:46 | ED.C_ITS ---
HPI - Psych General: Chief Complaint: Psychiatric Symptoms Stated Complaint: psych eval Time Seen by Provider: 06/07/23 12:32 Source: patient Mode of arrival: ambulatory Limitations: no limitations History of Present Illness: This patient presents to the emergency department because he has been off his medications for over a month and feels like he needs to be in the stress unit. He states he has been using methamphetamine and drinking some alcohol. He states the last time he drank was yesterday and the last time he smoked methamphetamine was yesterday. He states he is thinks there are people after him and he does not know who they are but he is fearful. He does not harbor any thoughts of harming himself. He states he has been eating and drinking fairly normally. He denies any fevers chills cough nausea vomiting diarrhea or other constitutional complaints. Context: recent alcohol abuse, recent drug abuse and not taking psychiatric medications Associated psychiatric symptoms: racing thoughts and visual hallucinations Associated symptoms: Reports visual hallucinations; Deny homicidal ideation or suicidal ideation Review of Systems Const: Denies: fever(s) or chills Eyes: Denies: change in vision ENMT: Denies: throat pain, odynophagia, nasal discharge or nasal congestion Card: Denies: palpitations, irregular heart rhythm, syncope or pre-syncope Resp: Denies: dyspnea, productive cough or non-productive cough GI: Denies: nausea, vomiting or diarrhea : Denies: flank pain, difficulty urinating or dysuria Musc: Denies: neck pain, back pain or extremity swelling Neuro: Denies: headache(s), numbness in extremities or weakness in extremities Psych: Reports: sleeping less, paranoia and visual hallucinations; Denies: suicidal ideation or homicidal ideation [facility] ED PFSH: Medical History Methamphetamine use disorder, mild Nicotine use disorder No significant past medical history On combination antipsychotic drug therapy Psychiatric care Surgical History No significant past surgical history Social History Smoking and tobacco status: current every day smoker Substance/Drug Use: current Physical Exam Narrative: EXAM NARRATIVE: The patient's lying comfortably on on the bed answers questions in a goal- directed fashion with somewhat rapid speech. He makes intermittent eye contact. Const: COMMON NORMALS: no acute distress, average body habitus and patient oriented x3 GENERAL APPEARANCE: cooperative HENMT: COMMON NORMALS: normocephalic, atraumatic, Normal nasal mucous membranes and turbinates present, moist oral mucous membranes and oropharynx normal HEAD & SCALP: normocephalic and atraumatic NOSE: Normal nasal mucous membranes and turbinates present Eye: COMMON NORMALS: Equal, round and reactive pupils present, EOMs intact bilaterally and conjunctivae normal CONJUNCTIVA: Yes conjunctivae normal PUPIL: Yes Equal, round and reactive pupils present Neck/C-Spine: COMMON NORMALS: full ROM, no JVD and No carotid bruits Chest: COMMONS NORMALS: normal inspection of the chest Resp: COMMON NORMALS: normal respiratory effort, No use of accessory muscles and clear to auscultation bilaterally AUSCULTATION: clear to auscultation bilaterally Cardio: COMMON NORMALS: no JVD, regular rate, regular rhythm, No murmurs present (Cardio) and Peripheral pulses 2+ throughout RATE: regular rate RHYTHM: regular rhythm PERIPHERAL PULSES: Peripheral pulses 2+ throughout GI: COMMON NORMALS: Normal to inspection, nondistended, normoactive bowel sounds present and Soft to palpation PALPATION: Yes Soft to palpation : COMMON NORMALS: Yes no CVA tenderness BLADDER/KIDNEY EXAM: Yes no CVA tenderness Back/Pelvis: COMMON NORMALS: no CVA tenderness, thoracic and lumbar spine no rmal to inspection and no thoracic nor lumbar tenderness Extremity: COMMON NORMALS: normal to inspection, full ROM, capillary refill normal, no joint enlargement, no calf tenderness and no pedal edema Neuro: COMMON NORMALS: patient oriented x3, moves all extremities, no focal motor deficits and no sensory deficits noted CRANIAL NERVES: Yes CN normal except as noted Psych: APPEARANCE: Yes grossly normal ATTITUDE: Yes calm ACTIVITY/MOTOR BEHAVIOR: Yes Avoids eye contact (attititude/behavior) SPEECH: Yes rapid MOOD & AFFECT: Yes anxious THOUGHT PROCESS: Circumstantial thought process present and disorganized INSIGHT: Fair insight present (Psych) JUDGEMENT: Fair judgement present (Psych) Skin: COMMON NORMALS: no rashes or lesions noted and no wounds GENERAL SKIN EXAM: no rashes or lesions noted Course Reevaluation(s): Reevaluation #1: Patient remained stable and cooperative Time: 15:37 Consultations: Consultation #1: Discussed with Dr. Ayala who agrees to admit the patient to n.p.o. Time: 15:46 Vital Signs: Vital signs: Vital Signs Temperature 98.6 F 06/07/23 12:07 Pulse Rate 99 06/07/23 12:07 Respiratory Rate 16 06/07/23 12:07 Blood Pressure 156/96 06/07/23 12:07 Pulse Oximetry 97 06/07/23 12:07 Oxygen Delivery Me thod Room Air 06/07/23 12:07 MDM - Psych Medical Decision Making Patient presented to our emergency department because he is concerned about paranoid thoughts and visual hallucinations with someone chasing him over the past oh number of days. He does admit to recent use of methamphetamine as well as some alcohol intake. He states he has not taken his prescribed medications for approximately 1 month. Had a prior history of hospitalization at this facility for psychosis likely related to his drug use as well as perhaps an underlying personality disorder. He is not actively suicidal at this time but is except pressing desire to be placed in the stress unit. Differential Diagnosis Likely acute psychosis and drug-induced psychotic disorder Lab Data I reviewed the patient's lab results. 06/07/23 13:19 06/07/23 13:19 Laboratory Results WBC 8.71 10^3/uL (3.29-11.43) 06/07/23 13:19 RBC 4.98 10^6/uL (3.85-5.65) 06/07/23 13:19 Hgb 14.80 g/dL (11.27-16.99) 06/07/23 13:19 Hct 44.4 % (37-53) 06/07/23 13:19 MCV 89.2 fl (82-101) 06/07/23 13:19 MCH 29.7 pg (27-33) 06/07/23 13:19 MCHC 33.3 g/dL (30-55) 06/07/23 13:19 RDW 13.2 % (12.1-15.1) 06/07/23 13:19 Plt Count 256 10^3/cmm (157-399) 06/07/23 13:19 MPV 10.2 fL (7.4-10.4) 06/07/23 13:19 Neut % (Auto) 67.3 % 06/07/23 13:19 Lymph % (Auto) 22.4 % 06/07/23 13:19 [place] % (Auto) 6.7 % 06/07/23 13:19 Eos % (Auto) 2.0 % 06/07/23 13:19 Baso % (Auto) 0.9 % 06/07/23 13:19 Neut # (Auto) 5.87 10^3/uL (1.8-7.7) 06/07/23 13:19 Lymph # (Auto) 2.0 10^3/uL (0.8-4.8) 06/07/23 13:19 [place] # (Auto) 0.6 10^3/uL (0.2-0.9) 06/07/23 13:19 Eos # (Auto) 0.2 10^3/uL (0.0-0.8) 06/07/23 13:19 Baso # (Auto) 0.1 10^3/uL (0.0-0.1) 06/07/23 13:19 Nucleated RBC % (auto) 0 % 06/07/23 13:19 Nucleated RBCs # 0.0 /100WBC 06/07/23 13:19 Sodium 140 mmol/L (136-145) 06/07/23 13:19 Potassium 4.0 mmol/L (3.5-5.1) 06/07/23 13:19 Chloride 102 mmol/L (98-107) 06/07/23 13:19 Carbon Dioxide 31 mmol/L (22-29) H 06/07/23 13:19 Anion Gap 11.0 (5-19) 06/07/23 13:19 BUN 8 mg/dL (6-20) 06/07/23 13:19 Creatinine 0.8 mg/dL (0.7-1.2) 06/07/23 13:19 GFR Calculation 99.6 mL/min (90-130) 06/07/23 13:19 Glucose 107 mg/dL (65-115) 06/07/23 13:19 Calculated Osmolality 289 mOsm/kg (285-295) 06/07/23 13:19 Calcium 8.9 mg/dL (8.5-10.5) 06/07/23 13:19 Total Bilirubin 0.2 mg/dL (0.15-1.2) 06/07/23 13:19 AST 17 U/L (0-40) 06/07/23 13:19 ALT 15 U/L (0-41) 06/07/23 13:19 Alkaline Phosphatase 89 U/L (40-130) 06/07/23 13:19 Total Protein 7.1 g/dL (6.6-8.7) 06/07/23 13:19 Albumin 4.2 g/dL (3.5-5.2) 06/07/23 13:19 Globulin 2.9 g/dL (1.3-4.6) 06/07/23 13:19 Salicylates 0.8 mg/dL (3-10) L 06/07/23 13:19 Urine Opiates Screen Negative ng/mL (Negative) 06/07/23 12:51 Acetaminophen < 5.0 ug/mL (10-30) L 06/07/23 13:19 Ur Barbiturates Screen Negative ng/mL (Negative) 06/07/23 12:51 Ur Phencyclidine Scrn Negative ng/mL (Negative) 06/07/23 12:51 Ur Amphetamines Screen Positive ng/mL (Negative) H 06/07/23 12:51 U Benzodiazepines Scrn Negative ng/mL (Negative) 06/07/23 12:51 Urine Cocaine Screen Negative ng/mL (Negative) 06/07/23 12:51 U Marijuana (THC) Screen Negative ng/mL (Negative) 06/07/23 12:51 No radiology studies performed this visit Discharge Plan Discharge Clinical Impression: Methamphetamine use disorder, mild, Acute psychosis, Drug-induced psychotic disorder Condition: Stable Prescriptions: No Action thiamine mononitrate (vit B1) [Vitamin B-1 (mononitrate)] 100 mg Tablet 100 mg PO DAILY 30 Days Qty: 30 1RF trazodone 50 mg Tablet 50 mg PO BEDTIME PRN (Reason: Sleep) 30 Days Qty: 30 1RF hydroxyzine pamoate 25 mg Capsule 50 mg PO Q6H PRN (Reason: Anxiety) 30 Days Qty: 120 1RF duloxetine 30 mg Capsule,Delayed Release(Dr/Ec) 30 mg PO DAILY 30 Days Qty: 30 1RF olanzapine 10 mg tablet 20 mg PO BEDTIME propranolol 20 mg tablet 20 mg PO BID Coding Level of Care Code ED [employer] [facility]
[2023-06-07 13:19] LABS: Amphetamines Screen Urine Positive (Negative); Barbiturates Screen Urine Negative (Negative); Benzodiazepines Screen Urine Negative (Negative); Cocaine Screen Urine Negative (Negative); Opiate Screen Urine Negative (Negative); PCP Screen Urine Negative (Negative); THC Screen Urine Negative (Negative)
[2023-06-07 13:31] LABS: Basophils # 0.1 10^3/uL (0.0-0.1); Basophils % 0.9 %; Eosinophils # 0.2 10^3/uL (0.0-0.8); Hematocrit 44.4 % (37-53); Lymphocytes % 22.4 %; Mean Corpuscular HGB Conc 33.3 g/dL (30-55); Mean Corpuscular Hemoglobin 29.7 pg (27-33); Mean Corpuscular Volume 89.2 fl (82-101); Mean Platelet Volume 10.2 fL (7.4-10.4); Monocytes # 0.6 10^3/uL (0.2-0.9); Monocytes % 6.7 %; Neutrophils # 5.87 10^3/uL (1.8-7.7); Neutrophils % 67.3 %; Nucleated Red Blood Cells % 0 %; Platelet Count 256 10^3/cmm (157-399); Red Blood Count 4.98 10^6/uL (3.85-5.65); Red Cell Distribution Width 13.2 % (12.1-15.1); White Blood Count 8.71 10^3/uL (3.29-11.43)
[2023-06-07 13:47] LABS: Alanine Aminotransferase 15 U/L (0-41); Albumin Level 4.2 g/dL (3.5-5.2); Alkaline Phosphatase 89 U/L (40-130); Aspartate Amino Transferase 17 U/L (0-40); Blood Urea Nitrogen 8 mg/dL (6-20); Calcium 8.9 mg/dL (8.5-10.5); Carbon Dioxide 31 mmol/L (22-29); Chloride 102 mmol/L (98-107); Globulin 2.9 g/dL (1.3-4.6); Glomerular Filtration Rate 99.6 mL/min (90-130); Glucose 107 mg/dL (65-115); Osmolality Calculated 289 mOsm/kg (285-295); Salicylate 0.8 mg/dL (3-10); Sodium 140 mmol/L (136-145); Total Bilirubin 0.2 mg/dL (0.15-1.2); Total Protein 7.1 g/dL (6.6-8.7)
[2023-06-07 13:49] LABS: Acetaminophen < 5.0 ug/mL (10-30)
[2023-06-07 18:01] VITALS: BP 134/84; PULSE 77; RESP 16; TEMP 36.6; O2SAT 99
[2023-06-07] MEDS: nicotine 4 mg lozenge MUCOUS MEM (18:43)
[2023-06-07] MEDS: acetaminophen 325 mg Tablet 650 MG PO (18:46)
--- NOTE | 2023-06-07 19:58 | PC.NURSE ---
IN BED RESTING AROUSES TO VOICE. PT STATES HE IS HERE DUE TO RELAPSING OFF METH AND NEEDING TO HELP. PT DENIES PAIN. DENIES SI/HI AND AVH AT THIS TIME. PT CONTINUES TO LAY IN BED AND REST. PT REQUEST TRAZODONE FOR SLEEP. WILL ADMINISTER WHEN TIME. SUPPORT VOICED.
[2023-06-07] MEDS: OLANZapine 10 mg TABLET 20 MG PO (20:27)
[2023-06-07 20:36] VITALS: BP 126/78; PULSE 75; RESP 16; TEMP 36.3; O2SAT 96
[2023-06-08 06:00] VITALS: BP 154/102; PULSE 72; RESP 16; TEMP 36.4; O2SAT 97
[2023-06-08] MEDS: thiamine 100 mg Tablet PO (08:25)
[2023-06-08] MEDS: duloxetine 30 mg Capsule PO (08:25)
[2023-06-08] MEDS: propranolol 20 mg Tablet PO ×2 (08:25→17:01)
[2023-06-08 14:00] VITALS: BP 138/84; PULSE 74; RESP 16; TEMP 36.6; O2SAT 96
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
[2023-06-08 19:49] VITALS: BP 120/71; PULSE 72; RESP 16; TEMP 36.6; O2SAT 94
[2023-06-08] MEDS: OLANZapine 10 mg TABLET 20 MG PO (20:36)
[2023-06-09 06:00] VITALS: BP 149/91; PULSE 58; RESP 20; TEMP 36.3; O2SAT 97
[2023-06-09] MEDS: thiamine 100 mg Tablet PO (11:49)
[2023-06-09 14:00] VITALS: BP 123/83; PULSE 74; RESP 16; TEMP 37; O2SAT 97
--- NOTE | 2023-06-09 16:50 | P.NPUPN_ITS ---
Subjective NPU Subjective: 58 year old admitted with suicidal ideation, homelessness, noncompliance with medication who reported using methamphetamine again prior to admission. Patient reports hope of going back to [facility] [place]. He reports feeling tired. He reports no suicidal thoughts. He reports ex girlfriend had come to his half-way and he left everything behind and relapsed on methamphetamine. He denies depr essed mood and reports no need for any medication other than zyprexa. Mental Status Exam MSE Comments: He is a casually dressed white male who appeared in no acute distress today. He had some evidence of mild psychomotor retardation. His gait appeared adequate his hygiene was poor. There was no evidence of any abnormal involuntary motor movements tics or tremors appreciated. His speech was normal in regards to rate rhythm and prosody. His mood was described as disappointed. His affect was restricted in range today. His thought process was linear logical and goal- directed. His thought content showed no evidence of active homicidal or suicidal ideation. He did not appear to be responding to internal stimuli. There was no clear evidence of delusional thinking. His attention span appeared variable. His insight is feeble. His judgment is poor. His impulse control is impaired. His recent and remote memory appeared grossly intact today. Vitals/I&O/Wt Last Vital Signs Temp 98.6 F 06/09/23 14:00 Pulse 74 06/09/23 14:00 Resp 16 06/09/23 14:00 BP 123/83 06/09/23 14:00 Pulse Ox 97 06/09/23 14:00 O2 Del Method Room Air 06/09/23 06:00 Data NPU 06/07/23 13:19 06/07/23 13:19 A&P Assessment and plan (1) Drug-induced psychotic disorder: (2) Auditory hallucinations: (3) Hallucinations, visual: (4) Delusions: (5) Paranoia: (6) Alcohol use disorder: (7) Depression: Plan Is a 58-year-old white male with history of polysubstance abuse and psychosis and known from previous inpatient stays presents again with active methamphetamine use , homelessness but no overt psychosis at this time. 1. Will hold on cymbalta, hydroxyzine, propranolol as patient has not been taking these medications and does not appear interested in medications at this time. 2. Continue every 15 minute check for safety. 3. Encourage individual group and milieu therapy. 4. recommend sober living treatment at the highest level of care to which the patient is willing to commit. 5. Continue zyprexa at 20mg at night. Involuntary Hold Information 96 Hour Hold: 96 Hour Involuntary Admission: No Attestations NPU Medical Necessity Statement*: Inpatient hospitalization is medically necessary and deemed to ?be ?the clinica lly appropriate intervention ?at this time.? We will monitor/initiate medications and make changes as indicated.?? The patient?s likely length of stay 3-4 days. Coding Level of Care Code Acute Code for [facility] Fwd Diagnoses Drug-induced psychotic disorder F19.959 Auditory hallucinations R44.0 Hallucinations, visual R44.1 Delusions F22 Paranoia F22 Alcohol use disorder F10.90 Depression F32.A
[2023-06-09] MEDS: OLANZapine 10 mg TABLET 20 MG PO (20:05)
[2023-06-09] MEDS: nicotine 4 mg lozenge MUCOUS MEM (20:05)
[2023-06-09 22:00] VITALS: BP 139/87; PULSE 82; RESP 16; TEMP 36.5; O2SAT 97
[2023-06-10 06:00] VITALS: BP 133/82; PULSE 62; RESP 16; TEMP 36.5; O2SAT 97
[2023-06-10] MEDS: thiamine 100 mg Tablet PO (11:42)
--- NOTE | 2023-06-10 12:06 | P.NPUPN_ITS ---
Subjective NPU Subjective: Patient presented today reporting that he is open to the idea of going to [facility] and returning to [facility] since they are willing to take her back. He reports that his symptoms are close to baseline he needs to except that his ex cannot be in his life anymore. We discussed discharge in the next 48 hours. Mental Status Exam MSE Comments: The patient is a well-nourished well-developed tall white male in hospital scrubs with limited grooming and eye contact. No abnormal movements except for mild psychomotor retardation. Mostly cooperative exam in mild distress. His speech was spontaneous with slightly decreased rate and volume. Mood described as better, affect congruent. Thought process was linear. Thought content: Patient denied suicidal or homicidal ideation, there are no delusions reported or noted, he did not appear to be responding to internal stimuli. Attention and concentration appeared intact and memory was limited but none were formally ivonne vish. He was alert and oriented times person and place. His insight was limited. His judgment is impaired. His impulse control appeared improving. Vitals/I&O/Wt Last Vital Signs Temp 97.7 F 06/10/23 06:00 Pulse 62 06/10/23 06:00 Resp 16 06/10/23 06:00 BP 133/82 06/10/23 06:00 Pulse Ox 97 06/10/23 06:00 O2 Del Method Room Air 06/10/23 06:00 Data NPU 06/07/23 13:19 06/07/23 13:19 A&P Assessment and plan (1) Drug-induced psychotic disorder: (2) Auditory hallucinations: (3) Hallucinations, visual: (4) Delusions: (5) Paranoia: (6) Alcohol use disorder: (7) Depression: Plan Is a 58-year-old white male with history of polysubstance abuse and psychosis and known from previous inpatient stays presents again with active methamphetamine use , homelessness but no overt psychosis at this time. 1. Will hold on cymbalta, hydroxyzine, propranolol as patient has not been taking these medications and does not appear interested in medications at this time. 2. Continue every 15 minute check for safety. 3. Encourage individual group and milieu therapy. 4. recommend sober living treatment at the highest level of care to which the patient is willing to commit. 5. Continue zyprexa at 20mg at night. Involuntary Hold Information 96 Hour Hold: 96 Hour Involuntary Admission: No Attestations NPU Medical Necessity Statement*: Inpatient hospitalization is medically necessary and deemed to ?be ?the clinically appropriate intervention ?at this time.? We will monitor/initiate medications and make changes as indicated.?? The patient?s likely length of stay 1-3 days. Coding Level of Care Code Acute Code for Chg Fwd Diagnoses Drug-induced psychotic disorder F19.959 Auditory hallucinations R44.0 Hallucinations, visual R44.1 Delusions F22 Paranoia F22 Alcohol use disorder F10.90 Depression F32.A
[2023-06-10 14:00] VITALS: BP 116/74; PULSE 70; RESP 16; TEMP 36.6; O2SAT 95
[2023-06-10] MEDS: nicotine 4 mg lozenge MUCOUS MEM ×2 (18:28→20:27)
[2023-06-10] MEDS: OLANZapine 10 mg TABLET 20 MG PO (20:27)
[2023-06-10 20:28] VITALS: BP 136/82; PULSE 76; RESP 18; TEMP 36.4; O2SAT 96
[2023-06-11 06:00] VITALS: BP 157/88; PULSE 75; RESP 18; O2SAT 97
[2023-06-11] MEDS: thiamine 100 mg Tablet PO (08:39)
--- NOTE | 2023-06-11 11:12 | W.PM.NPUDCS ---
Diagnoses at Discharge Discharge Diagnosis (1) Drug-induced psychotic disorder: Status: Acute (2) Auditory hallucinations: Status: Resolved (3) Hallucinations, visual: Status: Resolved (4) Delusions: Status: Resolved (5) Paranoia: Status: Acute (6) Alcohol use disorder: Status: Acute (7) Depression: Status: Acute Reason for Visit Reason for Visit: psych eval Brief History: History of Present Illness Otilio Carpio is a 58 year old male recently discharged from the neuropsychiatric unit on 05/14/2000 2030 who was brought to the emergency department after he had admitted to using methamphetamine and using alcohol. He reports that he had quit taking his medications for the last month. He had admitted to the use of methamphetamine again and states that he has been distracted by the voices again and has been feeling depressed. He did not endorse any suicidal thoughts today. He reports that he is once again been homeless. The patient reported that he had been staying at the [facility] until approximately 5 days ago when he had gone to go with his girlfriend and shortly thereafter began use of methamphetamine. He had stated today that he did not need to be on any medications as his mood was fine but he needed to stop using methamphetamine. He reports an inability to identify any triggers regarding wanting to use and states that he feels somewhat powerless with being able to control this. He had reported that he has difficulties with being in one place for a long time. He reported difficulties with concentration. He reports that he has not taken his propranolol,Cymbalta ,or hydroxyzine in several weeks. The patient has been receiving intensive ERA services through [facility] but has been resistant to treatment despite significant adverse consequences associated with the use of amphetamine. His urine drug screen was positive for amphetamine on admission. The patient reported no substantial changes since his last hospitalization less than 30 days ago. D/C Summary 05/14/23 from [facility] Discharge Diagnosis (1) Acute psychosis: Status: Resolved (2) Drug-induced psychotic disorder: Status: Acute (3) Auditory hallucinations: Status: Resolved (4) Hallucinations, visual: Status: Resolved (5) Delusions: Status: Resolved (6) Paranoia: Status: Acute (7) Alcohol use disorder: Status: Acute (8) Depression: Status: Acute Reason for Visit Psych Brief History: History of Present Illness Otilio Carpio is a 57 year old male recently discharged from the neuropsychiatric unit in March 2023 who presents with auditory hallucinations. The patient had been discharged on March 08, 2023 directly to [facility] for further treatment for alcohol use and methamphetamine use. He states that he completed the 1 month program there but he was homeless shortly afterwards and reports that he has begun to use alcohol and methamphetamine over the last few weeks. He reports that he has been unable to escape the homelessness and reports that he has been having more suicidal thoughts while hearing voices that are telling him to hurt himself. He reports feeling more hopeless and states that he has been feeling depressed. He had stated that he had become frustrated and had taken all of his olanzapine to try to help with the voices. He reports having difficulties with sleep. He reports that his voices are intermittent but are more frequent and intense in nature. Inpatient psychiatric history: See below Outpatient psychiatric history: He is followed through [facility] through ERE program Current medications: Abilify 10 mg daily, Zyprexa 30 mg at night Drug and alcohol history: See below, recent admission to inpatient at [facility] for drug and alcohol treatment. Allergies: Penicillin Medical history: Hypertension Excerpt from outpatient evaluation on 04/21/23 below: [facility] History and Physical Time In: 12:00 Time Out: 12:30 History of Present Illness: [facility]. He tells me he is not doing well. He states he is not doing well because he is homeless. He indicates he has a past domestic violence charge which has prevented him from getting in any shelters. He does tell me he has been living in his car for 2 weeks. He states he cannot sleep well at night. Does not elaborate more on this other than stating he has a lot on his mind. He states he is hearing voices. He does not want to talk about the voices he is hearing. He states it is an evil symphony in my head, I am fucked up, I'm screwy . Otilio denies suicidal thoughts. He denies homicidal thoughts. Because of Otilio's mood, being very irritable, being very uncooperative we agreed upon continuing the prescription today that was prescribed in the hospital and rescheduling for a future date. History Past Psychiatric History: Otilio tells me he has been hospitalized too many times to count . Reason for hospitalizations is that he hears voices. Last hospitalized 2 months ago. Denies previous suicide attempts. When questioned about prior mental health treatment he states he has been treated all over the place. He does acknowledge during his last hospitalization he was not taking any medication. He was released from intermediate in July 2022 and was not taking medication at that time. During his last hospitalization he was started on olanzapine 10 mg in the a.m. and 20 mg at bedtime. He asks if this prescription can be changed to olanzapine sublingual 20 mg daily. Aida is uncooperative with assessment and no further information was given. Family History: Otilio comments he is adopted any is unaware of any family history of mental illness Past Medical History: Otilio does not have a primary care provider. He comments he has not been treated for any illnesses. He states he has not had any previous injuries or surgeries. Comments sarcastically I guess I am just abril Substance Use History: Otilio was very uncooperative with the assessment. He does report smoking half pack of cigarettes a day but does not give any further details such as length of use. I spent 5 minutes providing smoking cessation counseling. We talked about history of use, current usage, prior attempts at quitting, and psychological barriers to quitting. I gauged his desire to quit and he is not ready at this time. Otilio reports prior marijuana use. Comments yes I smoke . He gives no further details on frequency of use, lengthy use, age of first use. He does state that he is done with all of that. Otilio does acknowledge prior methamphetamine use. He is unable to tell me when his last use was, amount of use, frequency of use, age of first use. Comments I cannot tell you . Urine drug screen shows positive amphetamine test from February 2023. Otilio denies alcohol use. Social History: Otilio tells me he is homeless. He states he is originally from [place] but came to [place] to be near his mom but states she . He is . He has 3 kids that are grown that lives in [place]. States he has not spoke to them in over 20 years. Tells me he has been homeless for 2 weeks. He does receive income of Social Security income/$777 a month. He tells me he is on parole. He states he was in intermediate for 3 and half years for domestic assault. He describes this as an obstacle in finding a place to stay as he is not able to go to any shelters because of the domestic violence charge. He states he has been in intermediate more than that but does not go into details. Just comments I have been in intermediate throughout my lifetime. Otilio tells me he graduated college for [employer]. Otilio does receive food stamps. He is very uncooperative and does not answer questions of history of physical/emotional/sexual abuse or any follow-up questions besides the brief answers he did provide. Comments often I do not see why any of this is relevant . Discharge summary from 03/08/23-[facility] si Brief History: History of Present Illness Otilio Carpio is a 57 year old male who presented to the emergency department with the following report: Chief Complaint: Psychiatric Symptoms Stated Complaint: si Time Seen by Provider: 02/22/23 19:15 History of Present Illness: Mr Carpio is a 57-year-old gentleman with history of depression and substance abuse presenting to the emergency department for depression with suicidal ideation. He reports voices that are telling him to kill himself. He essentially reports not remembering the past week possibly due to substance abuse though is somewhat vague. Denies physical injury or actual suicide attempt. No other specific changes in health, exacerbating, or alleviating factors identified. Patient was admitted to the neuropsychiatric unit for definitive treatment of those issues. He presents today very isolative and sleeping most of the time. Multiple attempts were made to engage him prior to the opportunity for a brief encounter. He was very abrupt and had very negative aggressive posturing. 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 He once again presents with positive UDS for methamphetamine but having psychosis and feeling irritable that anyone would challenge the veracity of his psychosis. Much of the challenging is essentially asking reasonable questions about the things he reports that any follow-up questions about the psychotic symptoms are seen by him as questioning what he is saying likely an off shoot of his paranoia. He was limited in his ability to talk about psychosocial conditions including his living conditions etc. So an excerpt of his last hospitalization which was about 3 and half months ago is included below for additional information. He was reporting taking Zyprexa now and we talked about increasing that dose and we could determine what the initial dose was because he did not know or did not recall. The patient reports continued depression, low energy, difficulties with sleep continuity disruption, increased feelings of hopelessness and suicidal ideation. He reports anhedonia has well. Per his 11/09/2022 [facility] inpatient psychiatric discharge summary: Discharge Diagnosis (1) Acute psychosis: Status: Acute (2) Drug-induced psychotic disorder: Status: Acute (3) Auditory hallucinations: Status: Acute (4) Hallucinations, visual: Status: Acute (5) Delusions: Status: Acute (6) Paranoia: Status: Acute (7) Alcohol use disorder: Status: Acute Reason for Visit Reason for Visit: PSYCH EVAL Brief History: History of Present Illness Otilio Carpio is a 57 year old male who presented to the emergency department with the following report: Chief Complaint: Psychiatric Symptoms Stated Complaint: PSYCH EVAL Time Seen by Provider: 10/31/22 13:47 History of Present Illness: Mr Carpio is a 57-year-old gentleman presenting to the emergency department for psychiatric concerns. He reports some bit of time of having, what I suspect are, auditory and visual hallucinations and paranoia. He reports longstanding history of being spiritual and his third eye in his pineal gland being open however is very vague as far as previous psychiatric diagnoses. He reports since he moved to [place] he was initially out of residential and living with his mother. He noted seeing people and hearing words in the events. He also endorses people watching him and spying on him and trying to blackmail him. He is unsure of exactly how this happens though thinks it is through perhaps cameras in the events of smoke detectors. He thinks that there are drones that are flying around him lately. He does endorse a history of tobacco use. He endorses a history of drinking denies daily alcohol use and denies history of DT/alcohol withdrawal seizure. He denies recent other substance abuse. Intensity symptoms is moderate to severe. The patient is afraid that somebody is going to check into the hospital hiding a gun up is as to blow my brains out . No other specific changes in health, exacerbating, or alleviating factors identified. He was admitted to the neuropsychiatric unit for definitive treatment of those issues. He was a very resistant historian with very few answers to questions posed to him. And most of those answers were enmeshed in a very serious likely paranoid delusional network. He just kept repeating that they are out to get me and I am not safe anywhere. Any question was perceived as a lack of belief of his report that he was being followed and these people were appearing everywhere. Additionally challenging the situation was a clear hypersomnolence likely connected to a crash from methamphetamine. He had refused thus far to give a urine sample so there was a BAL of but his UDS was not obtained as of this interview and bringing up his history of drugs led to him saying that he was not being believed in him essentially ending the interview. An excerpt of his evaluation/discharge summary from last month is included below for historical context. Per his 09/10/2022 [facility] inpatient psychiatric discharge summary: PSYCH EVAL Brief History: Otilio Carpio is a 57 year old male who was admitted to the neuropsychiatric unit after presenting to the emergency room complaining of seeing and hearing things in his living situation at the [facility]. He reports that he had used methamphetamine approximately 3 days ago. He reports that he has been hearing voices in the ducts of the air vents stating that I am going to kill you . He reports that he has never had any experience like this and states that there have been cameras placed in his mothers room and there that has been observing what she has been doing and has been gathering secret and personal information on the patient as well. He denies any suicidal ideation and stated that he simply needed to get out of the situation. He states he has been in this [facility] facility with his mother for the past 45 days. Prior to that mother had been there for at least a year. He has reported a history of alcohol use but also reports a history of stimulant abuse reporting recent methamphetamine abuse for several years and states most recent use 3 days ago with alcohol as well. He denies any current depression but reports being anxious and frustrated as he reports that the nursing facility at the [facility] needs to be examined for their fraud and there invasion of privacy. The patient reports that he had been in intermediate for 3 years prior to being released and he is on parole. Inpatient psychiatric history: He had reported previous inpatient treatments in [place] for depression in the past although he did not elaborate. Outpatient psychiatric history: He reports none currently. Drug and alcohol history: He had reported a history of polysubstance abuse including cocaine alcohol and currently methamphetamine. Current medications: None Allergies: Penicillin Medical history: None Surgical history: None Legal history: He reports multiple intermediate stints, most recently 6 weeks ago. Social history: The patient reports that he had been residing in an assisted living facility with his elderly mother age 81 who has multiple medical problems. He reports having just been released from intermediate. He reports having several children and states that he had been previously 1 time but is . He states he was born in [place] and had earned a degree in engineering having graduated from [employer]. He reports a history of legal problems involved in producing and delivering illicit substances. Family psychiatric history: None reported Hospital Course Hospital Course He acclimated to the individual, group and milieu therapies provided. He presented having relapsed and having significant concerns for his sobriety. He had concerns about maintaining the Abilify versus Zyprexa that he had been on in the past. He was switched back to Zyprexa from Abilify and titrated to 20 mg p.o. nightly. He worked with the social work team as concerns existed about him being able to return to his previous programming at [employer]. Ultimately they were able to help him be reinstated at [facility] and get day programming at [facility] with the likelihood and possibility of being switched to inpatient when available. He had significant improvement during the stay and he was able to contract for safety, outside of the hospital prior to discharge. During the hospitalization he had routine laboratory studies which were within normal limits except for few outliers. Additionally had a general medical evaluation which was also within normal limits and revealed no new acute processes. Discharge Summary: At the time of discharge, patient denied psychosis or lethality.? Mood and anxiety were well managed.? Patient endorsed a plan to avoid all drugs of abuse and follow-up with the aftercare recommendations of the treatment team.? Patient was evaluated and deemed to be absent credible lethality, and had achieved the maximum benefit from an inpatient hospitalization, so was discharged. Involuntary Hold Information 96 Hour Hold: 96 Hour Involuntary Admission: No Mental Status Exam MSE Comments: The patient is a well-nourished well-developed tall white male in hospital scrubs with limited grooming and eye contact. No abnormal movements except for mild psychomotor retardation. Mostly cooperative exam in mild distress. His speech was spontaneous with slightly decreased rate and volume. Mood described as better, affect congruent. Thought process was linear. Thought content: Patient denied suicidal or homicidal ideation, there are no delusions reported or noted, he did not appear to be responding to internal stimuli. Attention and concentration appeared intact and memory was limited but none were formally tested. He was alert and oriented times person and place. His insight was limited. His judgment is impaired. His impulse control appeared improving. Discharge Data Studies Completed and Pending: Laboratory Results WBC 8.71 10^3/uL (3.2 9-11.43) 06/07/23 13:19 RBC 4.98 10^6/uL (3.8 5-5.65) 06/07/23 13:19 Hgb 14.80 g/dL (11.27 -16.99) 06/07/23 13:19 Hct 44.4 % (37-53) 06/07/23 13:19 MCV 89.2 fl (82-101) 06/07/23 13:19 MCH 29.7 pg (27-33) 06/07/23 13:19 MCHC 33.3 g/dL (30-55) 06/07/23 13:19 RDW 13.2 % (12.1-15.1 ) 06/07/23 13:19 Plt Count 256 10^3/cmm (157 -399) 06/07/23 13:19 MPV 10.2 fL (7.4-10.4 ) 06/07/23 13:19 Neut % (Auto) 67.3 % 06/07/23 13:19 Lymph % (Auto) 22.4 % 06/07/23 13:19 [place] % (Auto) 6.7 % 06/07/23 13:19 Eos % (Auto) 2.0 % 06/07/23 13:19 Baso % (Auto) 0.9 % 06/07/23 13:19 Neut # (Auto) 5.87 10^3/uL (1.8 -7.7) 06/07/23 13:19 Lymph # (Auto) 2.0 10^3/uL (0.8- 4.8) 06/07/23 13:19 [place]urt[place] # (Auto) 0.6 10^3/uL (0.2- 0.9) 06/07/23 13:19 Eos # (Auto) 0.2 10^3/uL (0.0- 0.8) 06/07/23 13:19 Baso # (Auto) 0.1 10^3/uL (0.0- 0.1) 06/07/23 13:19 Nucleated RBC % (a uto) 0 % 06/07/23 13:19 Nucleated RBCs # 0.0 /100WBC 06/07/23 13:19 Sodium 140 mmol/L (136-1 45) 06/07/23 13:19 Potassium 4.0 mmol/L (3.5-5 .1) 06/07/23 13:19 Chloride 102 mmol/L (98-10 7) 06/07/23 13:19 Carbon Dioxide 31 mmol/L (22-29) H 06/07/23 13:19 Anion Gap 11.0 (5-19) 06/07/23 13:19 BUN 8 mg/dL (6-20) 06/07/23 13:19 Creatinine 0.8 mg/dL (0.7-1. 2) 06/07/23 13:19 GFR Calculation 99.6 mL/min (90-1 30) 06/07/23 13:19 Glucose 107 mg/dL (65-115 ) 06/07/23 13:19 Calculated Osmolal ity 289 mOsm/kg (285- 295) 06/07/23 13:19 Calcium 8.9 mg/dL (8.5-10 .5) 06/07/23 13:19 Total Bilirubin 0.2 mg/dL (0.15-1 .2) 06/07/23 13:19 AST 17 U/L (0-40) 06/07/23 13:19 ALT 15 U/L (0-41) 06/07/23 13:19 Alkaline Phosphata se 89 U/L (40-130) 06/07/23 13:19 Total Protein 7.1 g/dL (6.6-8.7 ) 06/07/23 13:19 Albumin 4.2 g/dL (3.5-5.2 ) 06/07/23 13:19 Globulin 2.9 g/dL (1.3-4.6 ) 06/07/23 13:19 Salicylates 0.8 mg/dL (3-10) L 06/07/23 13:19 Urine Opiates Scre en Negative ng/mL (N egative) 06/07/23 12:51 Acetaminophen < 5.0 ug/mL (10-3 0) L 06/07/23 13:19 Ur Barbiturates Sc reen Negative ng/mL (N egative) 06/07/23 12:51 Ur Phencyclidine S crn Negative ng/mL (N egative) 06/07/23 12:51 Ur Amphetamines Sc reen Positive ng/mL (N egative) H 06/07/23 12:51 U Benzodiazepines Scrn Negative ng/mL (N egative) 06/07/23 12:51 Urine Cocaine Scre en Negative ng/mL (N egative) 06/07/23 12:51 U Marijuana (THC) Screen Negative ng/mL (N egative) 06/07/23 12:51 Vitals: Last Vital Signs Temp 97.6 F 06/10/23 20:28 Pulse 75 06/11/23 06:00 Resp 18 06/11/23 06:00 BP 157/88 06/11/23 06:00 Pulse Ox 97 06/11/23 06:00 O2 Del Method Room Air 06/11/23 06:00 Discharge Plan Discharge Patient Disposition: Home Condition: Stable Prescriptions: Continued trazodone 50 mg Tablet 50 mg PO BEDTIME PRN (Reason: Sleep) 30 Days Qty: 30 1RF hydroxyzine pamoate 25 mg Capsule 50 mg PO Q6H PRN (Reason: Anxiety) 30 Days Qty: 120 1RF olanzapine 10 mg tablet 20 mg PO BEDTIME 30 Days Qty: 60 1RF Vitamin B-1 (mononitrate) 100 mg Tablet 100 mg PO DAILY 30 Days Qty: 30 1RF Discontinued duloxetine 30 mg Capsule,Delayed Release(Dr/Ec) 30 mg PO DAILY 30 Days Qty: 30 1RF propranolol 20 mg tablet 20 mg PO BID Discharge Orders: Discharge Order (Routine); Ordered 06/11/23 Ordered By: Lobo Mcgee Referrals: Kierra Lainez PMHNP [Staff Physician] - 06/15/23 10:30 am Discharge Diet: Regular Discharge Activity: Resume usual activity Patient Instructions: Methamphetamine Use Disorder (DC), Opioid Safety Discharge Attestations [facility] Time Spent in Discharge Care*: less than 30 min Specific Discharge Activities: Specific discharge activities: educating patient, discussing with director of casework department/social workers/dc planners, documenting/other paperwork and evaluating patient/reviewing data Coding Level of Care Code Acute Chg FW DC note Diagnoses Drug-induced psychotic disorder F19.959 Auditory hallucinations R44.0 Hallucinations, visual R44.1 Delusions F22 Paranoia F22 Alcohol use disorder F10.90 Depression F32.A
[2023-06-11 11:17] VITALS: BP 157/88; PULSE 75; RESP 18; TEMP 36.4; O2SAT 97
[2023-06-11] MEDS: nicotine 4 mg lozenge MUCOUS MEM (12:41)
== END 2023-06-11 14:10 | disposition home or self-care (01) | DRG 897 ==
LOC: ER 13:36 → NP 16:28
PROVIDERS: Admitting Provider Psychiatry & Neurology Psychiatry; Emergency Provider Emergency Medicine; Visit Provider Psychiatry & Neurology Psychiatry
DX: F15.151 Other stimulant abuse with stimulant-induced psychotic disorder with hallucinations (principal); Z59.00 Homelessness unspecified; R45.851 Suicidal ideations; F15.10 Other stimulant abuse, uncomplicated; F10.10 Alcohol abuse, uncomplicated; Z91.148 Patient's other noncompliance with medication regimen for other reason; F17.210 Nicotine dependence, cigarettes, uncomplicated
CPT/HCPCS: 36415; 80053; 80306; 80307; 85025; 97150; 97165; 99285

== ENCOUNTER 2023-06-27 16:03 | Emergency (ER) | payer MEDICARE, MEDICAID, SELFPAY ==
[2023-06-27 16:05] VITALS: BP 180/99; PULSE 125; RESP 16; TEMP 36.7; O2SAT 96; BMI 27.7
--- NOTE | 2023-06-27 16:31 | W.ED.PSYCHS ---
HPI - Psych General: Chief Complaint: Psychiatric Symptoms Stated Complaint: 96 Time Seen by Provider: 06/27/23 16:16 History of Present Illness: Patient presents to the ER with complaints of being without his psychiatric medicines. Patient said he has been out of all of these medicines for several weeks. Patient was just recently discharged from our psychiatric unit on 06/11/2023. Patient was discharged on trazodone 50 mg p.o. nightly, hydroxyzine 25 mg p.o. every 6 hours, Zyprexa 20 mg p.o. nightly. They DC'd his Cymbalta and propranolol. Patient adamantly denies any suicidal or homicidal ideation. He states he needs his medicines feel. Patient was brought in by the the police for paranoid tendencies. He thinks he is neighbors are out to get him another throwing guns in his yard. Patient is alert oriented x4 and answers all questions appropriately. Patient denies any suicidal homicidal ideation and is feels he does not need to go to [facility] at this moment. He just needs to get back on his medicine. Patient said he got his medicine filled at [facility]. During his last discharge from [facility] they did give him 1 refill per our records. Review of Systems General: Reports: 10 or more systems reviewed and unremarkable except in HPI and below PFSH ED PFSH: Medical History Methamphetamine use disorder, mild Nicotine use disorder No significant past medical history On combination antipsychotic drug therapy Psychiatric care Surgical History No significant past surgical history Social History Smoking and tobacco/nicotine status: current every day tobacco/nicotine user Substance/Drug Use: current Physical Exam Const: COMMON NORMALS: no acute distress, average body habitus, patient oriented x3, no limitations, healthy appearing, alert and well nourished HENMT: COMMON NORMALS: normocephalic, atraumatic, hearing grossly normal bilaterally, external ears normal, Normal external nose present, moist oral mucous membranes and oropharynx normal HEAD & SCALP: normocephalic and atraumatic NOSE: Normal external nose present EXTERNAL EAR: Yes external ears normal Neck/C-Spine: COMMON NORMALS: no JVD Chest: COMMONS NORMALS: normal inspection of the chest and normal palpation of entire chest wall Resp: COMMON NORMALS: normal respiratory effort, No retractions, No use of accessory muscles and clear to auscultation bilaterally AUSCULTATION: clear to auscultation bilaterally Cardio: COMMON NORMALS: no JVD, regular rhythm, S1 normal heart sound present, S2 normal heart sound present, No gallops present (Cardio) ( Tachycardic tachycardic), No clicks present (Cardio), No murmurs present (Cardio) and No rub (Cardio); negative for regular rate RATE: abnormal rate RHYTHM: regular rhythm HEART SOUNDS: S1 normal heart sound present and S2 normal heart sound present GI: COMMON NORMALS: Normal to inspection, nondistended, normoactive bowel sounds present, Soft to palpation, non-tender, No hepatosplenomegaly present and no masses PALPATION: Yes Soft to palpation and Yes No hepatosplenomegaly present : COMMON NORMALS: Yes no CVA tenderness BLADDER/KIDNEY EXAM: Yes no CVA tenderness Back/Pelvis: COMMON NORMALS: no CVA tenderness Neuro: COMMON NORMALS: patient oriented x3 SENSORIUM/ORIENTATION: Yes alert Course Vital Signs: Vital signs: Vital Signs Temperature 98.0 F 06/27/23 16:05 Pulse Rate 125 H 06/27/23 16:05 Respiratory Rate 16 06/27/23 16:05 Blood Pressure 180/99 06/27/23 16:05 Pulse Oximetry 96 06/27/23 16:05 Oxygen Delivery Me thod Room Air 06/27/23 16:05 MDM - Psych Medical Decision Making Patient presents to the ER with complaints of being out of his psychiatric medicine. Patient states he just needs refills. Patient is a paranoid schizophrenic. Recently discharged from our [facility] approximately 2 weeks ago. Patient adamantly denies suicidal homicidal ideation. Patient has a refill at [facility]. Patient be given 1 dose of his medicines to take today and instructed to get his other medicines refilled at [facility] pharmacy tomorrow. Differential Diagnosis Unlikely acute psychosis, chronic schizophrenia, suicidal ideation, bipolar disorder, depression, drug-induced psychotic disorder or acute anxiety Medical Records I reviewed the patient's medical records. Lab Data I reviewed the patient's lab results. No radiology studies performed this visit Discharge Plan Discharge Patient Disposition: Home Clinical Impression: Chronic schizophrenia, Noncompliance with medications Condition: Stable Prescriptions: No Action trazodone 50 mg Tablet 50 mg PO BEDTIME PRN (Reason: Sleep) 30 Days Qty: 30 1RF hydroxyzine pamoate 25 mg Capsule 50 mg PO Q6H PRN (Reason: Anxiety) 30 Days Qty: 120 1RF olanzapine 10 mg tablet 20 mg PO BEDTIME 30 Days Qty: 60 1RF thiamine mononitrate (vit B1) [Vitamin B-1 (mononitrate)] 100 mg Tablet 100 mg PO DAILY 30 Days Qty: 30 1RF propranolol 20 mg tablet 20 mg PO BID duloxetine 30 mg capsule,delayed release(DR/EC) 30 mg PO DAILY Discharge Orders: Discharge ED (Routine); Ordered 06/27/23 Ordered By: Tanvir Roth Patient Instructions: Schizophrenia Activity Restrictions/Additional Instructions: Per your last discharge from our psychiatric unit it appears you have 1 refill of all your medicines at the pharmacy. 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 Please follow-up with your family practice doctor within 7 days or sooner as needed. Coding Level of Care Code ED Data Assistant for Humaira Gomez
[2023-06-27] MEDS: OLANZapine 10 mg TABLET 20 MG PO (17:17)
== END 2023-06-27 17:29 | disposition home or self-care (01) ==
PROVIDERS: Emergency Provider Emergency Medicine
DX: F20.9 Schizophrenia, unspecified (principal); Z91.148 Patient's other noncompliance with medication regimen for other reason; F17.210 Nicotine dependence, cigarettes, uncomplicated
CPT/HCPCS: 99283

== ENCOUNTER 2023-06-30 13:02 | Emergency (ER) | payer MEDICARE, MEDICAID, SELFPAY ==
[2023-06-30 13:25] VITALS: BP 167/82; PULSE 111; RESP 18; TEMP 36.8; O2SAT 97
--- NOTE | 2023-06-30 13:36 | W.ED.PSYCHS ---
HPI - Psych General: Chief Complaint: Psychiatric Symptoms Stated Complaint: off meds Time Seen by Provider: 06/30/23 13:36 Source: patient Mode of arrival: ambulatory Limitations: no limitations History of Present Illness: Patient is a 58-year-old male with a known history of chronic paranoid schizophrenia often times noncompliant with his medications here after he was dropped off by police. Police did not give any type of report to triage nor did they fill out any type of affidavit or 96-hour hold. When I spoke to patient he states that the police picked him up at a storage unit. He states somebody else must have contacted the police. He does admit to some visual hallucinations but states these are chronic. He does feel like people are chasing after him. Patient was just admitted to [facility] earlier this month for identical symptoms. He was seen again in ED on 06/27 for same symptoms. Patient states he has refills of his psychiatric medications waiting for him at [facility]. Patient states he is not homicidal or suicidal. MD complaint: other (chronic schizophrenia) Onset (ago): year(s) Duration: constant History of same: Yes Relieving factors: medication Exacerbating factors: none Context: recent drug abuse Associated psychiatric symptoms: visual hallucinations and other (paranoia) Associated symptoms: Reports visual hallucinations; Deny auditory hallucinations, depression, homicidal ideation or suicidal ideation Treatments prior to arrival: none Review of Systems Psych: Reports: paranoia and visual hallucinations; Denies: depression, hopelessness, loss of interest, auditory hallucinations, suicidal ideation or homicidal ideation [facility] ED PFSH: Medical History Methamphetamine use disorder, mild Nicotine use disorder No significant past medical history On combination antipsychotic drug therapy Psychiatric care Surgical History No significant past surgical history Social History Smoking and tobacco/nicotine status: current every day tobacco/nicotine user Substance/Drug Use: current Physical Exam Const: COMMON NORMALS: no acute distress, patient oriented x3, no limitations and alert GENERAL APPEARANCE: cooperative ORIENTATION/CONSCIOUSNESS: Yes awake, Yes oriented to person, Yes oriented to place and Yes oriented to time Neuro: FACUNDO COMA SCALE: document GCS findings [place] coma scale eye opening: Spontaneous [place] coma scale verbal response: Orientated [place] coma scale motor response: Obey commands [place] coma scale total score: 15 COMMON NORMALS: patient oriented x3, moves all extremities, no focal motor deficits, no sensory deficits noted and gait normal SENSORIUM/ORIENTATION: Yes alert, Yes oriented to person, Yes oriented to place and Yes oriented to time Psych: COMMON NORMALS: mental status grossly normal, Normal thought process present, cooperative and speech normal APPEARANCE: Yes grossly normal ATTITUDE: Yes agitated (slightly-states he wants to leave) ACTIVITY/MOTOR BEHAVIOR: Yes appropriate eye contact SPEECH: Yes normal speech MOOD & AFFECT: Yes euthymic mood THOUGHT PROCESS: Normal thought process present THOUGHT CONTENT: Yes other (paranoia) ATTENTION/CONCENTRATION: Yes attention grossly intact and Yes concentration grossly intact MEMORY/COGNITION: Yes memory grossly intact and Yes cognition grossly intact INSIGHT: Fair insight present (Psych) JUDGEMENT: Fair judgement present (Psych) Course Vital Signs: Vital signs: Vital Signs Temperature 98.3 F 06/30/23 13:25 Pulse Rate 111 H 06/30/23 13:25 Respiratory Rate 18 06/30/23 13:25 Blood Pressure 167/82 06/30/23 13:25 Pulse Oximetry 97 06/30/23 13:25 Oxygen Delivery Me thod Room Air 06/30/23 13:25 MDM - Psych Medical Decision Making Patient during my initial assessment tells me he wants to go home. He does not want admitted to [facility] at this time. Patient has a history of schizophrenia and admits to chronic visual hallucinations. He does have some paranoia and feels like people are after him although to my knowledge this delusion has not caused him to act dangerously or put himself or others in harms way. This seems to be fairly chronic for patient as well certainly probably worse since he is not compliant with his medication regimen. Police did not file any form of affidavit/96-hour hold. He has not really said anything to me or nursing staff that I can place him on a 96 hour for. He is adamate he wants to leave. Patient ended up leaving prior to discharge paperwork. Differential Diagnosis Likely chronic schizophrenia No radiology studies performed this visit Discharge Plan Discharge Patient Disposition: Home Clinical Impression: Chronic schizophrenia Condition: Stable Prescriptions: No Action trazodone 50 mg Tablet 50 mg PO BEDTIME PRN (Reason: Sleep) 30 Days Qty: 30 1RF hydroxyzine pamoate 25 mg Capsule 50 mg PO Q6H PRN (Reason: Anxiety) 30 Days Qty: 120 1RF olanzapine 10 mg tablet 20 mg PO BEDTIME 30 Days Qty: 60 1RF thiamine mononitrate (vit B1) [Vitamin B-1 (mononitrate)] 100 mg Tablet 100 mg PO DAILY 30 Days Qty: 30 1RF propranolol 20 mg tablet 20 mg PO BID duloxetine 30 mg capsule,delayed release(DR/EC) 30 mg PO DAILY Discharge Orders: Discharge ED (Routine); Ordered 06/30/23 Ordered By: Yecenia Salazar Patient Instructions: Opioid Safety, Pain Management Coding Level of Care Code ED Human Service Technician for Humaira Gomez
--- NOTE | 2023-06-30 13:53 | PC.NURSE ---
pt eloped prior to nurse assessment. Provider aware.
== END 2023-06-30 14:00 | disposition home or self-care (01) ==
PROVIDERS: Emergency Provider Physician Assistant
DX: F20.9 Schizophrenia, unspecified (principal); Z72.0 Tobacco use
CPT/HCPCS: 99281